=== PATIENT | male | born 1940 | race Caucasian/White ===

== ENCOUNTER → 2025-07-07 10:58 | Outpatient (REF) | payer OTHER, SELFPAY | LOC: HWRAD 10:58 | PROVIDERS: ATTENDING PHYSICIAN Internal Medicine Critical Care Medicine; FAMILY PHYSICIAN Family Medicine | DX: J44.9 Chronic obstructive pulmonary disease, unspecified (principal) | CPT/HCPCS: 71250 ==

== ENCOUNTER → 2025-10-21 13:40 | Outpatient (REF) | payer OTHER, SELFPAY | LOC: HWRAD 13:40 | PROVIDERS: ATTENDING PHYSICIAN Internal Medicine Critical Care Medicine; FAMILY PHYSICIAN Family Medicine | DX: R91.8 Other nonspecific abnormal finding of lung field (principal) | CPT/HCPCS: 71250 ==

== ENCOUNTER 2025-11-02 14:45 | Inpatient (IN) | payer OTHER, SELFPAY ==
[2025-11-02] VITALS (10 sets, daily range): BP systolic 108–163; BP diastolic 60–78; PULSE 2–106; BMI 34.3
--- NOTE | 2025-11-02 12:41 | ED.GENMED ---
History of Present Illness
General
Chief Complaint: Breathing Problem
Time Seen by Provider: 11/02/25 12:32
Nursing documentation reviewed up to this point in time: agreed with
History of Present Illness
History of Present Illness:
85-year-old male brought to the ER by family for evaluation of severe shortness of breath. Patient has COPD and is on every 4 hour nebulizer treatments. He also uses BiPAP at nighttime. He states that he had been feeling relatively well although
maybe a little bit more short of breath last night. He reports feeling severely short of breath this morning, unrelieved by nebulizer treatment given at home. He is on 4 L nasal cannula oxygen chronically. He has been compliant with taking his
Lasix daily. He is also on azithromycin daily. In addition to COPD he has prior history of back surgery, he has an indwelling morphine pump
brings with her a 2 page list of his medications which I have reviewed with her. Medication list includes aspirin, azithromycin, ferrous sulfate, fluorometholone acetate, furosemide, ipratropium, Movantik here, omeprazole, pregabalin, timolol
drops, levetiracetam, Toprol, budesonide inhaled, escitalopram, finasteride, lovastatin, pregabalin, Keppra, tamsulosin, metoprolol, morphine tablets and pump and also Dupixent
Review of Systems
Review of Systems
Allergies reviewed?: Yes
Phy Exam
Physical Exam
Physical Exam:
Patient is awake, alert, tachypneic, mild facial flushing with severe respiratory distress, using all accessory muscles for respiration, head is NCAT, PERRL, EOMI mucous membranes moist, conjunctiva pink, heart regular rate and rhythm without
murmurs or ectopy, absent breath sounds in all 4 lung morales,, no JVD, abdomen is soft and nontender on palpation, extremities without edema, well-healed midline surgical incision over cervical and thoracic spine with significant thoracic kyphosis,
GCS is 15
Scores
Heart Failure Risk
Heart Failure Risk Score: Not Applicable
Course
Orders/Labs/Results
Orders:
Orders
11/02/25 12:27
Electrocardiogram (*1) Urgent
Reason for Study: Shortness of Breath
EKG- Treatment ONCE
11/02/25 12:37
Albuterol Nebs [Ventolin Nebules] 10 mg INH R NOW STA
Bipap [RESP] Urgent
Patient to use own unit?: No
Inspiratory Pressure (cm H2O): 15
Expiratory Pressure (cm H2O): 5
11/02/25 12:39
Ipratropium Nebs [Atrovent Nebules] 1 mg INH R NOW STA
MethylPREDNISolone PF [Solu-Medrol Pf] 125 mg IV NOW STA
11/02/25 12:40
CR Chest Portable - 1 View Urgent
Comment:
Reason For Exam: dyspnea
Reason Study Needs to be Portable: Patient Unstable
11/02/25 12:42
Complete Blood Count/With Diff Urgent
Comprehensive Metabolic Panel Urgent
NT-proBNP Urgent
PTT Urgent
Prothrombin Time Urgent
Troponin I Urgent
11/02/25 12:46
COVID-19 Antigen Urgent
Source: Nasal Swab
Influenza A+B Rapid Molecular Urgent
GILMA Source: Nasal Swab
Specimen Description:
11/02/25 12:50
Morphine Sulfate 4 mg IV NOW STA
11/02/25 12:52
Magnesium Sulfate 2 Gram/50 ml [Magnesium Sulfate] 2 gram in 50 ml IV NOW
Morphine Sulfate 4 mg .ROUTE .STK-MED ONE
11/02/25 13:32
Cefepime HCl [Maxipime] 1,000 mg IV NOW STA
11/02/25 13:43
Lactic Acid Urgent
Blood Culture Urgent
GILMA Source: Blood/Venous
Specimen Description:
11/02/25 13:44
Sterile Water [Sterile Water For Injection] 10 ml .ROUTE .STK-MED ONE
11/02/25 13:49
Blood Culture Urgent
GILMA Source: Blood/Venous
Specimen Description:
Vancomycin [Vancocin] 2,000 mg 0.9% Sodium Chloride 500 ml [Nss] 500 ml IV NOW
11/02/25 14:23
Admit/Transfer Patient As Directed
Co-Sign Provider:
Level of Care: Inpatient admission
Assign to:: IMU- Intermediate Care
Physician / Group: María Vieira - Hospitalists
Diagnosis: Acute on chronic hypoxic RF, pneumonia
Reason for Hospitalization: Acute on chronic hypoxic RF, pneumonia - IMU, BiPAP, IV Abx
Expected length of stay greater than two midnights?: Yes
ELOS- Estimated Length of Stay in days: 4
I certify the patient meets the requirements for IP care: Yes
PRN Pain Medication Management As Directed
May give lesser potent ordered pain med per pt: Yes
preference::
Protocol:: Medication orders for pain may be administered in a
manner that supports deferring to patient preference
when the pt is:
- Requesting an ordered lesser potent pain medication.
Least to most potent pain medications are defined
as: acetaminophen < NSAID < tramadol < opioids
(morphine, oxycodone, hydromorphone).
- Requesting a lesser dose of the same medication IF
ORDERED.
- Requesting a less intrusive route of administration
if both routes are prescribed by the provider (PO <
IV).
11/02/25 14:27
Code Status As Directed
Resuscitation Status: Do not resuscitate
Reached after discussion with pt or family/Healthcare POA: Yes
DNR Bracelet Application ONCE
11/02/25 14:34
PULMONARY CONSULT Routine
Consulting Provider: Stefani Jang
Was physician already notified: Yes
Abnormal Lab Results
11/02/25
12:42
WBC 13.0 H 10^3/uL
(4.8-10.8)
RBC 4.13 L 10^6/uL
(4.70-6.10)
Hgb 12.4 L g/dL
(13.0-18.0)
MCV 97.3 H fL
(80.0-94.0)
MCHC 30.8 L g/dL
(33.0-37.0)
MPV 10.9 H fL
(7.4-10.4)
Abs Immat Gran (auto) 0.1 H 10^3/uL
(0-0.05)
Absolute Neuts (auto) 9.7 H 10^3/uL
(1.4-6.5)
Absolute Monos (auto) 1.5 H 10^3/uL
(0.1-0.6)
Immature Gran % 0.8 H %
(0-0.5)
Lymphocytes % 11.7 L %
(20.5-51.1)
Monocytes % 11.6 H %
(1.7-9.3)
Chloride 96 L mmol/L
(98-107)
Carbon Dioxide 38 H mmol/L
(22-30)
BUN 25 H mg/dl
(9-20)
Glucose 111 H mg/dl
(70-99)
AST 136 H U/L
(17-59)
11/02/25 12:42
11/02/25 12:42
White blood count elevated at 13. Mild anemia noted. CO2 elevated at 38
Vital Signs
Initial and Last Documented VS:
Initial Vital Signs
Temp Pulse Resp BP Pulse Ox
99.1 F 101 22 163/78 94
11/02/25 12:14 11/02/25 12:14 11/02/25 12:14 11/02/25 12:14 11/02/25 12:14
Last Documented Vital Signs
Temp Pulse Resp BP Pulse Ox
99.1 F 103 18 128/68 93
11/02/25 12:14 11/02/25 14:00 11/02/25 14:01 11/02/25 14:00 11/02/25 14:00
MDM/Problems Addressed
Differential Diagnosis Includes:
Differential diagnosis to consider but not limited to COPD exacerbation, pneumonia, acute hypoxic respiratory failure, acute hypercapnic respiratory failure along with other etiologies considered
Chronic conditions affecting care:
COPD with home use of 4 L nasal cannula oxygen, chronic pain on morphine pump
*Radiology
Radiology exam reviewed: preliminary read by ED provider (I independently viewed and interpreted x-ray showing large right pneumonia with air bronchogram present)
*Pulse Oximetry
SaO2: 92
Nasal Cannula flow liters per minute: 6
Patient hypoxic: yes
*EKG
Interpreted by ED Provider?: Yes (I independently viewed and interpreted twelve-lead EKG showing sinus tachycardia, rate 111, leftward axis, anterior Q waves, no ST elevation, this is an abnormal tracing without evidence for acute ischemia, no prior
for comparison)
*Business Quality Assurance Analyst Interpretation
Rate: tachycardiac (I independently viewed and interpreted rhythm strip showing sinus tachycardia, no ectopy)
*Critical Care Note
Total Time (30-74mins, 75-104mins- exclusive of procedures): see notes
comment:
Critical care statement: A total of 45 minutes of critical care time was provided for this patient. This includes management of unstable vital signs, evaluation of the patient at bedside, reviewing the patient's pertinent medical records, discussion
with consultants, review of old EKGs and review of pertinent medical records. This time with separate from time utilized to perform the aforementioned documented procedures
Update Note
Update Note:
Patient ordered for BiPAP immediately on my initial evaluation. We are having some difficulty getting him to tolerate with heart rates up into the 150s. Patient appears severely anxious, understandably. He is on chronic morphine, small dose of
morphine was given for additional anxiolysis in order to tolerate the treatment. Nebulizer is currently working with BiPAP-on reexamination I am now able to hear breath sounds BL. Pt still tachypneic. IV magnesium also ordered for bronchospasm.
Will continue frequent reassessments.
Patient seem to be doing better with breathing, however now on reevaluation, he appears very fatigued. He is still answering questions and tolerating the BiPAP, but is becoming more somnolent. I discussed with patient and feel members present at
bedside current critical condition. I discussed with him presence of right lower lobe pneumonia. We discussed patient's advance directive-he has DNR, DNI. They would agree to continue BiPAP and start antibiotics. Patient also going in and out of
atrial tachycardia, likely a flutter with 2 1 conduction, he has no prior history of this. I reviewed full pt presentation and current condition with the hospitalist, who accepts pt for admission
ED Attending Note
-
Portions of this chart may have been created with voice recognition software.� Occasional wrong word or��sound alike� substitutions may have occurred due to the inherent limitations of voice recognition software.
Discharge Plan
Departure
Patient Disposition: Admit
Date of Disposition: 11/02/25
Time of Disposition: 13:45
Presentation/result/management discussed w/ accepting MD/DO: Hospitalist
Discharge Problem:
Acute hypoxemic respiratory failure, Pneumonia, Acute exacerbation of chronic obstructive pulmonary disease, Atrial fibrillation/flutter
Prescriptions:
No Action
furosemide [Lasix] 20 mg Tablet
20 mg PO DAILY
doxycycline hyclate 100 mg Capsule
100 mg PO BID
ipratropium-albuterol [DuoNeb] 0.5 mg-3 mg(2.5 mg base)/3 mL Solution For Nebulization
3 ml INHALATION R QID
azithromycin 250 mg Tablet
250 mg PO MOTUWETHFR
benzonatate 200 mg Capsule
200 mg PO TIDPRN PRN (Reason: COUGH)
levetiracetam [Keppra] 500 mg Tablet
500 mg PO DAILY
lovastatin 40 mg Tablet
40 mg PO QPM
lysine [L-Lysine] 1,000 mg Tablet
1,000 mg PO DAILY
Theragen Tablet
1 tab PO DAILY
omeprazole 40 mg Capsule,Delayed Release(Dr/Ec)
40 mg PO DAILY
aspirin 81 mg Tablet,Delayed Release (Dr/Ec)
81 mg PO DAILY
tamsulosin [Flomax] 0.4 mg Capsule
0.4 mg PO QPM
fluorometholone acetate 0.1 % Drops,Suspension
1 drp LEFT EYE BID
ferrous sulfate 325 mg (65 mg iron) Tablet
325 mg PO DAILY
budesonide 0.5 mg/2 mL Suspension For Nebulization
0.5 mg INHALATION R BID
levetiracetam [Keppra] 750 mg Tablet
750 mg PO QPM
timolol maleate 0.5 % Drops
1 drp LEFT EYE BID
morphine 15 mg Tablet
15 mg PO QID
finasteride 5 mg Tablet
5 mg PO QPM
ipratropium bromide 0.02 % Solution
0.5 mg INHALATION R BID
amoxicillin-pot clavulanate [Augmentin] 875-125 mg Tablet
1 tab PO BID
escitalopram oxalate [Lexapro] 10 mg Tablet
10 mg PO QPM
metoprolol tartrate 25 mg Tablet
25 mg PO BID
pregabalin [Lyrica] 50 mg Capsule
50 mg PO DAILY
pregabalin [Lyrica] 50 mg Capsule
100 mg PO HS
cholecalciferol (vitamin D3) [Vitamin D3] 25 mcg (1,000 unit) Tablet
25 mcg PO DAILY
Gndjbgijkpu-Qwihd-OZA Complex 237-142-92-0.5 mg Tablet
1 tab PO DAILY
Calcium Magnesium 500 mg calcium- 250 mg Tablet
1 tab PO DAILY
Movantik 25 mg Tablet
25 mg PO DAILY
Dupixent Pen 300 mg/2 mL Pen Injector
600 mg SC Q2W
Patient Own Morphine Pump
1 dose SC DIRECTED
Patient Comments:
11/02/25-PATIENT, SPOUSE AND FAMILY IN ROOM DO NOT KNOW INFORMATION ABOUT THE PUMP
Referrals:
Cain Justin DO [Family Provider, Family Practice]
Interventions
Interventions:
*Risk Screen - Suicide Last Done: 11/02/25 12:14
*General Assessment Last Done: 11/02/25 12:14
*Neglect/Abuse Screening Last Done: 11/02/25 12:14
*ED COVID-19 Vaccine History Last Done: 11/02/25 12:38
*ED Influenza Vaccine History Last Done: 11/02/25 12:38
[facility] Fall Risk Assessment Tool Last Done: 11/02/25 12:38
ED- Cardiac Assessment Last Done: 11/02/25 12:38
ED- Pulmonary Assessment Last Done: 11/02/25 12:38
Discharge Date and Time
Print Language: GREENLANDIC
[2025-11-02] MEDS: SOLU-MEDROL PF 125 MG IV (12:47)
[2025-11-02 12:55] LABS: Hematocrit 40.2 % (39.0-52.0); Hemoglobin 12.4 g/dL (13.0-18.0); Mean Corp Hgb Conc. 30.8 g/dL (33.0-37.0); Mean Corpuscular Volume 97.3 fL (80.0-94.0); Nucleated Red Blood Cells % 0 % (-); Platelet Count 190 10^3/uL (130-400); Red Cell Dist. Width 13.5 % (11.5-14.5)
[2025-11-02] MEDS: MORPHINE SULFATE 4 MG IV (12:55)
[2025-11-02] MEDS: MAGNESIUM SULFATE 50 IV (12:59)
[2025-11-02 13:05] LABS: INR 0.96; PT 12.9 Sec (11.4-14.6)
[2025-11-02 13:06] LABS: APTT 29.2 Sec (23.4-35.0)
[2025-11-02 13:10] LABS: ALT (SGPT) 42 U/L (0-50); AST (SGOT) 136 U/L (17-59); Albumin 3.8 g/dl (3.5-5.0); Alkaline Phosphatase 100 U/L (38-126); Blood Urea Nitrogen 25 mg/dl (9-20); Calcium 8.8 mg/dl (8.4-10.2); Carbon Dioxide 38 mmol/L (22-30); Chloride 96 mmol/L (98-107); Glucose 111 mg/dl (70-99); Potassium 4.1 mmol/L (3.5-5.1); Sodium 139 mmol/L (135-145); Total Protein 6.9 g/dl (6.3-8.2); eGFR > 60.00
[2025-11-02 13:16] LABS: COVID-19 Antigen Negative (Negative)
[2025-11-02] MEDS: ATROVENT NEBULES 1 MG INH (13:20)
[2025-11-02] MEDS: VENTOLIN NEBULES 10 MG INH (13:20)
[2025-11-02 13:21] LABS: Troponin I 0.020 ng/ml
[2025-11-02] MEDS: MAXIPIME 1000 MG IV (13:46)
[2025-11-02] MEDS: VANCOCIN 540 MG IV (13:58)
--- NOTE | 2025-11-02 14:09 | HPS.HSE ---
Addendum entered and electronically signed by María Vieira MD 11/02/25 16:49:
add IV steroids
Original Note:
Family Physician
-
Family Physician: Cain Justin
Chief Complaint
-
SOB
History of Present Illness
85 y/o F, hx of seizures, COPD on chronic home O2, HUGO on nocturnal BIPAP, RLS, Anxiety/Depression, HLD, hx of multiple back surgeries, restrictive lung disease, BPH presenting to ER with worsening SOB. Patient uses 4L NC chronically. He saw
Pulmonary in early September and had a CT prior to showing loculated R pleural effusion and RLL opacities. He was placed on Augmentin and Doxycycline by Pulmonary. Over past 24 hours patient has reported increasing SOB from baseline
along with some cough. He usually takes nebs every 4 hours but found no relief with neb treatments. Denies CP. No reported fever/chills. No other complaints. Reports compliance with diuretics. Has restrictive lung disease from prior multiple back
surgeries with body height loss; he is also maintained on morphine pump.
Medical History
Past Medical History
Past Medical History: Reports Other (seizures, COPD on chronic home O2, HUGO on nocturnal BIPAP, RLS, Anxiety/Depression, HLD, hx of multiple back surgeries, restrictive lung disease, BPH)
Past Surgical History: Reports Other (Spinal surgeries, cath, colonoscopy, cataracts)
Social History
Tobacco: Former Smoker
Alcohol: None
Drug: None
Personal:
Living: With Family
Employment: Retired
Family History
Family History: Not pertinent
Allergies / Home Medications
Allergies reflects when Allergies were last updated in [facility].
Home Medications with original date entered in [employer]
Allergy/Medication List:
Allergies
Allergy/AdvReac Type Severity Reaction Status Date / Time
acetaminophen (From Percocet) AdvReac Nausea / Verified 11/02/25 12:14
Vomiting
oxycodone (From Percocet) AdvReac Nausea / Verified 11/02/25 12:14
Vomiting
propoxyphene (From AdvReac Nausea / Verified 11/02/25 12:14
Darvocet-N) Vomiting
Home Medications
Patient Own Morphine Pump 1 dose SC DIRECTED 11/02/25
amoxicillin 875 mg-potassium clavulanate 125 mg tablet 1 tab PO BID Infection 11/02/25
aspirin 81 mg tablet,delayed release 81 mg PO DAILY Blood Clot Prevention/Tx 11/02/25
azithromycin 250 mg tablet 250 mg PO MOTUWETHFR 11/02/25
benzonatate 200 mg capsule 200 mg PO TIDPRN PRN COUGH 11/02/25
budesonide 0.5 mg/2 mL suspension for nebulization 0.5 mg inhalation R BID Lung/Breathing Issues 11/02/25
calcium 500 mg (carb,gluconate)-magnesium 250 mg (gluc,oxide) tablet 1 tab PO DAILY Supplement 11/02/25
cholecalciferol (vitamin D3) 25 mcg (1,000 unit) tablet (Vitamin D3) 25 mcg PO DAILY Supplement 11/02/25
doxycycline hyclate 100 mg capsule 100 mg PO BID Infection 11/02/25
dupilumab 300 mg/2 mL subcutaneous pen injector (Dupixent) 600 mg SC Q2W 11/02/25
escitalopram oxalate 10 mg tablet (Lexapro) 10 mg PO QPM Mental Health/Anxiety 11/02/25
ferrous sulfate 325 mg (65 mg iron) tablet 325 mg PO DAILY Supplement 11/02/25
finasteride 5 mg tablet 5 mg PO QPM Urinary Issue 11/02/25
fluorometholone acetate 0.1 % eye drops,suspension 1 drp LEFT EYE BID Eye Condition 11/02/25
furosemide 20 mg tablet (Lasix) 20 mg PO DAILY Fluid Retention/Swelling 11/02/25
glucosamine 375 io-wupgbetjv-eed no1 500 mg-C 15 mg-elisa 0.5 mg tablet (Vsbwcjhqjrm-Pyultpxzszj-PJA Complex) 1 tab PO DAILY Supplement 11/02/25
ipratropium 0.5 mg-albuterol 3 mg (2.5 mg base)/3 mL nebulization soln 3 ml inhalation R QID Lung/Breathing Issues 11/02/25
ipratropium bromide 0.02 % solution for inhalation 0.5 mg inhalation R BID Lung/Breathing Issues 11/02/25
levetiracetam 500 mg tablet (Keppra) 500 mg PO DAILY Seizures 11/02/25
levetiracetam 750 mg tablet (Keppra) 750 mg PO QPM Seizures 11/02/25
lovastatin 40 mg tablet 40 mg PO QPM High Cholesterol 11/02/25
lysine 1,000 mg tablet 1,000 mg PO DAILY Supplement 11/02/25
metoprolol tartrate 25 mg tablet 25 mg PO BID Heart Disease/Condition 11/02/25
morphine 15 mg immediate release tablet 15 mg PO QID Anti-Inflammatory 11/02/25
naloxegol 25 mg tablet (Movantik) 25 mg PO DAILY 11/02/25
omeprazole 40 mg capsule,delayed release 40 mg PO DAILY Gastrointestinal Issue 11/02/25
pregabalin 50 mg capsule (Lyrica) 50 mg PO DAILY Anti-Inflammatory 11/02/25
pregabalin 50 mg capsule (Lyrica) 100 mg PO HS Anti-Inflammatory 11/02/25
tamsulosin 0.4 mg capsule 0.4 mg PO QPM Urinary Issue 11/02/25
therapeutic multivitamin 1 tab PO DAILY Supplement 11/02/25
timolol maleate 0.5 % eye drops 1 drp LEFT EYE BID Eye Condition 11/02/25
Review of Systems
-
A 12 point ROS was completed and negative except as noted: Yes
Physical Exam
Vital Signs
Vital Signs
Temp Pulse Resp BP Pulse Ox
99.1 F 103 18 128/68 93
11/02/25 12:14 11/02/25 14:00 11/02/25 14:01 11/02/25 14:00 11/02/25 14:00
Physical Exam
General: Respiratory Distress (on BIPAP - is alert and able to follow conversation)
HEENT: NormoCephalic and Anicteric
Respiratory: Rhonchi (RLL) and Decreased Breath Sounds (RLL); No Wheezes
Cardiac: S1/S2 and Regular Rhythm
GI: Soft and Non Tender
Musculoskeletal: No Edema
Neuro: AO x 3
Psych: Calm
Laboratory Results
-
11/02/25 12:42
11/02/25 12:42
Laboratory Results
PT 12.9 Sec (11.4-14.6) 11/02/25 12:42
INR 0.96 11/02/25 12:42
APTT 29.2 Sec (23.4-35.0) 11/02/25 12:42
Lactic Acid 1.1 mmol/L (0.7-2.0) 11/02/25 13:43
Total Bilirubin 0.3 mg/dl (0.2-1.3) 11/02/25 12:42
AST 136 U/L (17-59) H 11/02/25 12:42
ALT 42 U/L (0-50) 11/02/25 12:42
Alkaline Phosphatase 100 U/L (38-126) 11/02/25 12:42
Troponin I 0.020 ng/ml 11/02/25 12:42
Data Reviewed
-
Diagnostic Radiology: Report Reviewed by me (Large partially loculated right pleural effusion with associated atelectasis and/or pneumonia)
Lab Data: Labs Reviewed by me
Impression/Plan
-
Assessment:
Acute on chronic hypoxic respiratory failure
Acute RLL pneumonia
Hx of COPD
Hx of Severe restrictive lung disease
- baseline 4L NC, currently requiring continuous BiPAP for respiratory distress; wean as able
- recently placed on Augmentin + Doxy without improvement
- admit to IMU
- check sputum, MRSA
- Vancomycin and Zosyn empirically
- nebs scheduled and prn
- mucolytics, anti-tussives
- 3% saline
- RLL consolidation could also be related to plugging, unsure if candidate for bronch
- consult Pulmonary
Hx of seizures
- continue Keppra BID
HUGO on Nocturnal BIPAP
RLS
Anxiety/Depression hx
- continue Lexapro
HLD - statin
hx of multiple back surgeries
hx of Demyelinating neuropathy
- continue morphine QID + add prn dosages. Hold pump.
- on Movantik
- continue Lyrica
BPH
- continue Finasteride, Flomax
Hx venous insufficiency
- continue oral Lasix
Hx of CAD
- aspirin/BB/Statin
DVT ppx: Lovenox
Code: DNR/DNI - confirmed with family
--- NOTE | 2025-11-02 14:52 | CM ---
Chart reviewed and spoke with patient, Larisa and dtr Ailyn at ED bedside. Ailyn's at ED bedside
Pt lives with at [address] apartment
Needs assistance with ADLs and ambulation
DME BIPAP home O2 4 LPM at baseline walker
PCP Dr Cain Justin
Pharmacy [facility]
SNF [facility] x2 and one on [phone]?
DCP is to go home with HHC vs SNF?
CM will continued to follow up for any dcp needs
--- NOTE | 2025-11-02 15:05 | CON.PUL ---
Consultation
Consultation Request
Date/Time Consultation Requested: 11/02/25
Date/Time Consultation Performed: 11/02/25
Performing Provider: Laine
Reason for Consultation: Hypoxia,WOB
Medical History
-
History of Present Illness:
Patient is an 85-year-old male with previous history of chronic hypoxic respiratory failure, severe HUGO on BiPAP, COPD with severe restrictive lung defect presenting with worsening shortness of breath from home. Patient is noted to use 4 L nasal
cannula chronically at home. He was noted by his to have worsening shortness of breath. She had tried BiPAP temporarily before coming to the ER which was not helpful. He has prior CT imaging demonstrating loculated right pleural effusion.
He is also maintained on a morphine pump. He is notably DNR, confirmed by patient and family that they would not want aggressive measures. He is admitted to IMU for acute on chronic hypoxic respiratory failure.
Past Medical History
Past Medical History: Other (see list below)
Social History
Tobacco: Former Smoker
Alcohol: None
Drug: None
Family History
Family History: Reviewed & Not Pertinent
Allergies / Home Medications
Allergies
Allergy/AdvReac Type Severity Reaction Status Date / Time
acetaminophen (From Percocet) AdvReac Nausea / Verified 11/02/25 12:14
Vomiting
oxycodone (From Percocet) AdvReac Nausea / Verified 11/02/25 12:14
Vomiting
propoxyphene (From AdvReac Nausea / Verified 11/02/25 12:14
Darvocet-N) Vomiting
Home Medications
�Medication �Instructions �Recorded �Confirmed �Last Taken �Type
Patient Own Morphine Pump 1 dose SC DIRECTED 11/02/25 11/02/25 Unknown History
amoxicillin 875 mg-potassium 1 tab PO BID Infection 11/02/25 11/02/25 11/01/25 History
clavulanate 125 mg tablet
aspirin 81 mg tablet,delayed 81 mg PO DAILY Blood Clot 11/02/25 11/02/25 11/01/25 History
release Prevention/Tx
azithromycin 250 mg tablet 250 mg PO MOTUWETHFR 11/02/25 11/02/25 10/31/25 History
benzonatate 200 mg capsule 200 mg PO TIDPRN PRN COUGH 11/02/25 11/02/25 Unknown History
budesonide 0.5 mg/2 mL suspension 0.5 mg inhalation R BID 11/02/25 11/02/25 11/01/25 History
for nebulization Lung/Breathing Issues
calcium 500 mg 1 tab PO DAILY Supplement 11/02/25 11/02/25 11/01/25 History
(carb,gluconate)-magnesium 250 mg
(gluc,oxide) tablet
cholecalciferol (vitamin D3) 25 25 mcg PO DAILY Supplement 11/02/25 11/02/25 11/01/25 History
mcg (1,000 unit) tablet (Vitamin
D3)
doxycycline hyclate 100 mg capsule 100 mg PO BID Infection 11/02/25 11/02/25 11/01/25 History
dupilumab 300 mg/2 mL subcutaneous 600 mg SC Q2W 11/02/25 11/02/25 Unknown History
pen injector (Dupixent)
escitalopram oxalate 10 mg tablet 10 mg PO QPM Mental Health/Anxiety 11/02/25 11/02/25 11/01/25 History
(Lexapro)
ferrous sulfate 325 mg (65 mg 325 mg PO DAILY Supplement 11/02/25 11/02/25 11/01/25 History
iron) tablet
finasteride 5 mg tablet 5 mg PO QPM Urinary Issue 11/02/25 11/02/25 11/01/25 History
fluorometholone acetate 0.1 % eye 1 drp LEFT EYE BID Eye Condition 11/02/25 11/02/25 11/01/25 History
drops,suspension
furosemide 20 mg tablet (Lasix) 20 mg PO DAILY Fluid 11/02/25 11/02/25 11/01/25 History
Retention/Swelling
glucosamine 375 vm-zwmimjouz-vmd 1 tab PO DAILY Supplement 11/02/25 11/02/25 11/01/25 History
no1 500 mg-C 15 mg-elisa 0.5 mg
tablet
(Vcmtyxgpjni-Xioptpzfcxy-VCD
Complex)
ipratropium 0.5 mg-albuterol 3 mg 3 ml inhalation R QID 11/02/25 11/02/25 11/01/25 History
(2.5 mg base)/3 mL nebulization Lung/Breathing Issues
soln
ipratropium bromide 0.02 % 0.5 mg inhalation R BID 11/02/25 11/02/25 11/01/25 History
solution for inhalation Lung/Breathing Issues
levetiracetam 500 mg tablet 500 mg PO DAILY Seizures 11/02/25 11/02/25 11/02/25 History
(Keppra)
levetiracetam 750 mg tablet 750 mg PO QPM Seizures 11/02/25 11/02/25 11/01/25 History
(Keppra)
lovastatin 40 mg tablet 40 mg PO QPM High Cholesterol 11/02/25 11/02/25 11/01/25 History
lysine 1,000 mg tablet 1,000 mg PO DAILY Supplement 11/02/25 11/02/25 11/01/25 History
metoprolol tartrate 25 mg tablet 25 mg PO BID Heart 11/02/25 11/02/25 11/01/25 History
Disease/Condition
morphine 15 mg immediate release 15 mg PO QID Anti-Inflammatory 11/02/25 11/02/25 11/01/25 History
tablet
naloxegol 25 mg tablet (Movantik) 25 mg PO DAILY 11/02/25 11/02/25 11/01/25 History
omeprazole 40 mg capsule,delayed 40 mg PO DAILY Gastrointestinal 11/02/25 11/02/25 11/01/25 History
release Issue
pregabalin 50 mg capsule (Lyrica) 50 mg PO DAILY Anti-Inflammatory 11/02/25 11/02/25 11/01/25 History
pregabalin 50 mg capsule (Lyrica) 100 mg PO HS Anti-Inflammatory 11/02/25 11/02/25 11/01/25 History
tamsulosin 0.4 mg capsule 0.4 mg PO QPM Urinary Issue 11/02/25 11/02/25 11/01/25 History
therapeutic multivitamin 1 tab PO DAILY Supplement 11/02/25 11/02/25 11/01/25 History
timolol maleate 0.5 % eye drops 1 drp LEFT EYE BID Eye Condition 11/02/25 11/02/25 11/01/25 History
Review of Systems
-
History Source: Patient and Family
All other systems: Negative unless noted
Vitals / Labs / Diagnostic Testing
Vital Signs
Temp Pulse Resp BP Pulse Ox
99.1 F 103 18 128/68 93
11/02/25 12:14 11/02/25 14:00 11/02/25 14:01 11/02/25 14:00 11/02/25 14:00
Lab Data
11/02/25 12:42
11/02/25 12:42
Laboratory Results
11/02/25
12:42
PT 12.9
INR 0.96
APTT 29.2
Microbiology
11/02/25 12:46 Nasal Swab Influenza Types A & B ([facility]) - Final
Negative for Influenza A & B, NAAT
Negative results must be combined with clinical observations
and patient history.
Nucleic Acid Amplification test (NAAT)performed on the
[employer] NOW platform.
Diagnostic Testing:
Physical Exam
-
HEENT: Normocephalic and Anicteric
Cardiovascular: S1/S2 and Regular Rhythm
Respiratory: Wheeze, Accessory Resp Muscle Use (moderate on BIPAP) and Other (paradoxical breathing)
GI: Soft, Distended (obese, pain pump noted) and Non Tender
Neurology: Awake, Alert and No Motor Deficits
Skin: Warm and Dry
General: Other (chronically ill appearing, moderate distress but mentating)
Assessment
-
Patient is an 85-year-old male with previous history of chronic hypoxic respiratory failure, severe HUGO on BiPAP, COPD with severe restrictive lung defect presenting with worsening shortness of breath from home. Patient is noted to use 4 L nasal
cannula chronically at home. He was noted by his to have worsening shortness of breath. She had tried BiPAP temporarily before coming to the ER which was not helpful. He has prior CT imaging demonstrating loculated right pleural effusion.
He is also maintained on a morphine pump. He is notably DNR, confirmed by patient and family that they would not want aggressive measures. He is admitted to IMU for acute on chronic hypoxic respiratory failure. We are consulted for evaluation.
Acute on chronic hypoxic respiratory failure
Leukocytosis, mild
Right sided loculated pleural effusion, chronic
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
Conditions present prior to admission
Severe COPD, follows with AF
6MWT performed 10/03/25 showing he needs 4L/min with rest and activity
Full PFTs from 05/02/2025 showed a severe restrictive lung defect
Severe HUGO, RDI of 98 in January 2008, and wears auto-BiPAP 19/35huK1C with PS: 2-7cmH2O, bled with 4L/min
Previously managed at [facility], transitioned care to in the past year
Former tobacco smoker, quit in [phone], smoked 0.5PPD x 20 years
RLD
Restless leg syndrome
Back injury x 8 surgeries, now on morphine pain pump/implanted 03/22/2004
several back surgeries including fusion of C5 + C6 and C6+C7, L3 +S1, L4+L5 [id number]
High cholesterol
Polyneuropathy
Hypertension
Seizures
Ulcers/Gastritis
Hx Fall
Depression/Anxiety
Heart catheterization 01/17/2008, 04/24/14
Plan
Hypoxemia noted on arrival, O2 wendy 88% on 4 L
He has baseline O2 use of 4 L nasal cannula, he is now on BiPAP
Will obtain ABG, likely a CO2 retainer
Prior history of lung disease is noted including COPD, severe restrictive lung disease, former smoker, severe HUGO
Prior PFTs demonstrating severe restrictive lung defect
Agree with IV steroids, suspect patient has AECOPD
He has numerous reasons to feel short of breath
CXR/CT obtained indicating loculated right pleural effusion that has increased in size since previous CT in June
I will follow-up with chest ultrasound to see if this is amenable for thoracentesis with diagnostic testing
He is currently placed on IV antibiotics but unsure if this is related to pneumonia versus congestive heart failure, and has been present since June
proBNP negative but could be heart failure related
No prior echoes for review
We will obtain new study
Smoking history noted--former history
Weight loss measures recommended
Obesity likely contributing to respiratory symptoms
Patient has numerous serious comorbidities and is on a morphine pump for back pain
This is certainly contraindicated in a patient with severe obstructive sleep apnea
He is currently DNR, I have verified the status with patient and his family
If he does not clinically improve, they are all in agreement that he would want to be made comfortable
We will follow
Diagnostic Data
Chest X- Ray:11/02/25- Large partially loculated right pleural effusion with associated atelectasis and/or pneumonia, likely similar to prior CT.
CT Scan: CHEST 10/21/25- There is an increased moderate, loculated right-sided pleural effusion with adjacent opacities within the posterior lateral right lung which may represent atelectasis although pneumonia is possible.
There is opacification of the proximal right lower lobe bronchus which may represent mucous plugging although a mass is possible. Consider bronchoscopy for further evaluation.
There is a mildly displaced sternal body fracture. Additionally there is a compression deformity of the T8 vertebral body. These are new from imported CT in 2023 although similar appearance to recent prior CT.
07/07/25- Overall low lung volumes with some interstitial changes, many of which may be chronic. Irregular lobulated ill-defined 'consolidation' in the lower lobe of the right lung which although could represent atelectasis and/or pneumonia,
malignancy cannot be excluded. Are there prior outside studies for comparison? If not, consider PET scan with dual point imaging.
Echo:
PFT's:
Reports and relevant images were personally reviewed.
Total time spent on this consultation __55__ minutes which includes review of history, physical exam, medications, laboratory data, personal review of imaging, extensive review of outpatient records, discussion with care team and respiratory therapy.
--- NOTE | 2025-11-02 16:23 | EDRN ---
per the pts , the pt has an internal morphine pump in his abdomen that is completely internal, it gets filled every 2 months, and is managed by his pain management doctor, and there is no external controller for this morphine pump.
[2025-11-02 16:48] LABS: B.E. 9.9 mmol/L; HCO3 39.2 mmol/L (21-28); O2 Saturation % 97.1 % (94-98); PO2 76 mmHg (83-108)
[2025-11-02 16:49] LABS: PCO2 76 mmHg (35-48)
[2025-11-02] MEDS: MORPHINE SULFATE PO ×2 (18:09→22:33)
--- NOTE | 2025-11-02 18:36 | PTCARENOTE ---
Patient admitted to IMU with diagnosis of PNA, hypoxia. Patient arrived to the unit on Bipap /, 4 liters. Patient drowsy but answering questions appropriately with at bedside. Morphine pump in abdomen as per patient, notified pharmacy.
--- NOTE | 2025-11-02 18:36 | PHA.VAN.IN ---
Assessment
- Assessment
Renal Function: Appears similar to baseline
Concomitant Antimicrobials: Zosyn 3.375 g IV q6h
AUC Dosing Plan
- Empiric Dosing
Initial / Loading Dose: Vancomycin 2 gram IV x 1 dose
Maintenance Regimen: Vancomycin 1.25 gram IV q24H
Estimated AUC (mcg*h/mL): 452
Estimated Peak (mcg*h/mL): 31.3
Estimated Trough (mcg/ml): 10.1
Estimated Half Life (H): 14.1
- Monitoring
No levels ordered at this time: Consider level in a few days when patient at steady state
MRSA Screen: Ordered per protocol
Pharmacokinetics Vancomycin I
- -
Patient Age: 85
Patient Sex: Male
Vancomycin Day #: 1
Indication: Pulmonary/Respiratory
Requesting Provider: Dr. Vieira
Height / Weight:
Height 5 ft 1 in
Actual Weight 82.2 kg
Pertinent Past Medical History: BMI: 34.2
- Vital Signs / Lab Results
Temp Pulse Resp BP Pulse Ox
99.2 F 89 21 139/60 93
11/02/25 17:14 11/02/25 18:30 11/02/25 18:30 11/02/25 18:00 11/02/25 18:30
Lab Results - Hematology
11/02/25
12:42
WBC 13.0 H
Lab Results - Chemistry
11/02/25
12:42
BUN 25 H
Creatinine 0.9
Albumin 3.8
11/02/25
13:43
Lactic Acid 1.1
Microbiology Results
11/02/25 12:46 Influenza Types A & B ([facility]) - Final
Nasal Swab Negative for Influenza A & B, NAAT
Negative results must be combined with clinical observations
and patient history.
Nucleic Acid Amplification test (NAAT)performed on the
[employer] NOW platform.
[2025-11-02] MEDS: LOVENOX 40 MG SC (19:12)
[2025-11-02] MEDS: KEPPRA 750 MG PO (20:02)
[2025-11-02] MEDS: LEXAPRO 10 MG PO (20:02)
[2025-11-02] MEDS: LOPRESSOR 25 MG PO (20:02)
[2025-11-02] MEDS: PROSCAR 5 MG PO (20:05)
[2025-11-02] MEDS: MUCINEX 1200 MG PO (20:05)
[2025-11-02] MEDS: FLOMAX 0.4 MG PO (20:05)
[2025-11-02] MEDS: FML 0.1% OPHTHALMIC SUSPENSION 1 DROP LEFT EYE (20:07)
[2025-11-02] MEDS: TIMOPTIC 0.5% OPHTHALMIC SOLUTION 1 DROP LEFT EYE (20:07)
[2025-11-02] MEDS: LYRICA PO (20:08)
[2025-11-02] MEDS: PULMICORT 0.5 MG INH (20:16)
[2025-11-02] MEDS: DUONEB INH (20:16)
[2025-11-02] MEDS: SODIUM CHLORIDE 3% FOR INHALATION 1 VIAL INH (20:16)
[2025-11-02] MEDS: DUONEB 3 ML INH (20:17)
[2025-11-02] MEDS: ZOSYN 50 IV (20:18)
[2025-11-02] MEDS: LIPITOR PO (20:34)
[2025-11-02] MEDS: LYRICA 100 MG PO (22:36)
[2025-11-03] VITALS (23 sets, daily range): BP systolic 75–157; BP diastolic 57–88; PULSE 2–94; BMI 34.3
[2025-11-03] MEDS: SOLU-MEDROL PF 40 MG IV ×2 (01:49→14:05)
[2025-11-03] MEDS: ZOSYN 50 IV ×4 (01:49→18:23)
[2025-11-03 03:46] LABS: Hematocrit 37.5 % (39.0-52.0); Hemoglobin 11.4 g/dL (13.0-18.0); Mean Corp Hgb Conc. 30.4 g/dL (33.0-37.0); Mean Corpuscular Volume 98.4 fL (80.0-94.0); Platelet Count 186 10^3/uL (130-400); Red Cell Dist. Width 13.5 % (11.5-14.5)
[2025-11-03 04:48] LABS: B.E. 10.7 mmol/L; HCO3 39.5 mmol/L (21-28); O2 Saturation % 98.0 % (94-98); PO2 81 mmHg (83-108)
[2025-11-03 04:55] LABS: PCO2 75 mmHg (35-48)
[2025-11-03 05:02] LABS: Blood Urea Nitrogen 31 mg/dl (9-20); Calcium 8.7 mg/dl (8.4-10.2); Carbon Dioxide 35 mmol/L (22-30); Chloride 100 mmol/L (98-107); Estimated Creatinine Clearance 48 ml/min; Glucose 126 mg/dl (70-99); Potassium 4.8 mmol/L (3.5-5.1); Sodium 139 mmol/L (135-145); eGFR > 60.00
[2025-11-03] MEDS: VANCOCIN 275 MG IV (05:17)
--- NOTE | 2025-11-03 07:31 | W.PN.HOSP.TC ---
Today's Communication/Plan
-
wean off BIPAP as tolerated
cont abx
IR eval Right thoracentesis
Assessment / Plan
Assessment / Plan
Physical Exam
General: no acute distress, appears comfortable though on BIPAP
HEENT: NormoCephalic and Anicteric
Respiratory: Decreased Breath Sounds (RLL); No Wheezes
Cardiac: S1/S2 and Regular Rhythm
GI: Soft and Non Tender
Musculoskeletal: No Edema
Neuro: Alert following commands, limited conversation on BIPAP as above
Psych: Calm
85M sz d/o restrictive lung dz COPD chronic home O2 4L HUGO BIPAP RLS Anxiety/depression here for Acute on Chronic Respiratory Failure likely 2/2 RLL pna and associate large pleural effusion.
Acute on chronic hypoxic respiratory failure
Acute RLL pneumonia
Hx of COPD
Hx of Severe restrictive lung disease
- baseline 4L NC, on BIPAP wean as tolerated
- recently placed on Augmentin + Doxy without improvement
- IMU admit
- check sputum cx, MRSA screen +
- Vancomycin and Zosyn empirically
- nebs scheduled and prn
- mucolytics, anti-tussives
- 3% saline
- chest US appreciated large Right pleural effusion
- consult Pulmonary appreciated IR eval requested for Thoracentesis
Hx of seizures
- continue Keppra BID
HUGO on Nocturnal BIPAP
RLS
Anxiety/Depression hx
- continue Lexapro
HLD - statin
hx of multiple back surgeries
hx of Demyelinating neuropathy
- continue morphine QID + add prn dosages. Hold pump.
- on Movantik
- continue Lyrica
BPH
- continue Finasteride, Flomax
Hx venous insufficiency
- continue oral Lasix
Hx of CAD
- aspirin/BB/Statin
DVT ppx: Lovenox
Code: DNR/DNI
Discussed with patient, patient's Larisa, and patient's daughter Ailyn
I spent a total of 45 minutes with the patient or on the floor. More than 50% of this time involved counseling and coordination of care.
Anticipated Discharge: 24 - 48 hours
Subjective/Interval History
-
Date of Service: November 03, 2025
No acute distress, sitting up comfortably in bed, on bipap, reports feeling sob.
Objective Data
-
Labs:
Laboratory Results
11/03/25 11/03/25
03:35 04:41
WBC 10.9 H
Hgb 11.4 L
Hct 37.5 L
Plt Count 186
HCO3 39.5 H
Sodium 139
Potassium 4.8
Chloride 100
Carbon Dioxide 35 H
BUN 31 H
Creatinine 1.0
Glucose 126 H
Calcium 8.7
Vital Signs:
Vital Signs
Temp Pulse Resp BP Pulse Ox
97.6 F 82 20 134/68 94
11/03/25 03:00 11/03/25 06:45 11/03/25 06:45 11/03/25 06:00 11/03/25 06:45
I&O
11/02/25 11/03/25 11/04/25
06:59 06:59 06:59
Output Total 275 / 275
Balance -25 / -25 -275 / -275
[2025-11-03] MEDS: PULMICORT 0.5 MG INH ×2 (07:33→19:41)
[2025-11-03] MEDS: SODIUM CHLORIDE 3% FOR INHALATION 1 VIAL INH ×2 (07:33→19:41)
[2025-11-03] MEDS: DUONEB 3 ML INH ×4 (07:33→19:41)
[2025-11-03] MEDS: MORPHINE SULFATE 15 MG PO ×4 (07:56→21:54)
[2025-11-03] MEDS: MOVANTIK 25 MG PO (07:56)
[2025-11-03] MEDS: PROTONIX 40 MG PO (07:57)
[2025-11-03] MEDS: LASIX 20 MG PO (07:57)
[2025-11-03] MEDS: LYRICA 50 MG PO (07:57)
[2025-11-03] MEDS: KEPPRA 500 MG PO (07:57)
[2025-11-03] MEDS: ASPIR LOW (ENTERIC COATED) 81 MG PO (07:57)
[2025-11-03] MEDS: LOPRESSOR 25 MG PO ×2 (07:57→20:13)
[2025-11-03] MEDS: MUCINEX 1200 MG PO (07:57)
[2025-11-03] MEDS: TIMOPTIC 0.5% OPHTHALMIC SOLUTION 1 DROP LEFT EYE ×2 (07:58→20:14)
[2025-11-03] MEDS: FML 0.1% OPHTHALMIC SUSPENSION 1 DROP LEFT EYE ×2 (07:58→20:14)
--- NOTE | 2025-11-03 08:24 | RESPNOTE ---
Respiratory: attempted to give patient break from Bilevel on lasted about twenty minutes. Stated SOB returned back to Bilevel.
--- NOTE | 2025-11-03 08:49 | W.PN.PUL.V3 ---
Today's Communication / Plan
-
wean oxygen.
BiPAP.
Right thoracentesis-interventional radiology contacted.
Antibiotics.
Diuresis.
Assessment
-
Patient is an 85-year-old male with previous history of chronic hypoxic respiratory failure, severe HUGO on BiPAP, COPD with severe restrictive lung defect presenting with worsening shortness of breath from home. Patient is noted to use 4 L nasal
cannula chronically at home. He was noted by his to have worsening shortness of breath. She had tried BiPAP temporarily before coming to the ER which was not helpful. He has prior CT imaging demonstrating loculated right pleural effusion.
He is also maintained on a morphine pump. He is notably DNR, confirmed by patient and family that they would not want aggressive measures. He is admitted to IMU for acute on chronic hypoxic respiratory failure. We are consulted for evaluation.
Acute on chronic hypoxic respiratory failure
Leukocytosis, mild
Right sided loculated pleural effusion, chronic
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
Conditions present prior to admission:
Severe COPD, follows with AF
6MWT performed 10/03/25 showing he needs 4L/min with rest and activity
Full PFTs from 05/02/2025 showed a severe restrictive lung defect
Severe HUGO, RDI of 98 in January 2008, and wears auto-BiPAP 19/10rdP8N with PS: 2-7cmH2O, bled with 4L/min
Previously managed at [facility], transitioned care to in the past year
Former tobacco smoker, quit in [id number], smoked 0.5PPD x 20 years
RLD
Restless leg syndrome
Back injury x 8 surgeries, now on morphine pain pump/implanted 03/22/2004
several back surgeries including fusion of C5 + C6 and C6+C7, L3 +S1, L4+L5 [id number]
High cholesterol
Polyneuropathy
Hypertension
Seizures
Ulcers/Gastritis
Hx Fall
Depression/Anxiety
Heart catheterization 01/17/2008, 04/24/14
Plan
Prior history of lung disease is noted including COPD, severe restrictive lung disease, former smoker, severe HUGO
Prior PFTs demonstrating severe restrictive lung defect
Respiratory status remains tenuous.
Continues up about oxygen--currently on BiPAP.
ABG 11/03/25--75/81/7.33
BiPAP as tolerated.
Nebulizers-DuoNeb's and budesonide
Steroids-no change.
Mucolytic
Aspiration precautions.
Mucus clearing devices..
CT chest06/2025-minimal right pleural fluid.
CT chest 09/2025-moderate loculated pleural fluid with atelectasis
Chest x-ray 11/02/25 with increased pleural fluid on the right and ultrasound noted-large right pleural fluid
Contacted interventional radiology for diagnostic and therapeutic right thoracentesis. 11/03/25.
Reviewed thoracentesis with patient-patient willing
Cultures reviewed.
MRSA screen positive.
Blood cultures pending.
Influenza negative
Empiric antibiotic-vancomycin and Zosyn
Diuresis as tolerated
Monitor weight, intake, output, renal function and lower extremity edemaPrior history of lung disease is noted including COPD, severe restrictive lung disease, former smoker, severe HUGO
Echocardiogram-pending
He is currently DNR, Dr. Finney verified the status with patient and his family
If he does not clinically improve, they are all in agreement that he would want to be made comfortable
Diagnostic Data
Chest X- Ray:11/02/25- Large partially loculated right pleural effusion with associated atelectasis and/or pneumonia, likely similar to prior CT.
CT Scan: CHEST 10/21/25- There is an increased moderate, loculated right-sided pleural effusion with adjacent opacities within the posterior lateral right lung which may represent atelectasis although pneumonia is possible.
There is opacification of the proximal right lower lobe bronchus which may represent mucous plugging although a mass is possible. Consider bronchoscopy for further evaluation.
There is a mildly displaced sternal body fracture. Additionally there is a compression deformity of the T8 vertebral body. These are new from imported CT in 2023 although similar appearance to recent prior CT.
07/07/25- Overall low lung volumes with some interstitial changes, many of which may be chronic. Irregular lobulated ill-defined 'consolidation' in the lower lobe of the right lung which although could represent atelectasis and/or pneumonia,
malignancy cannot be excluded. Are there prior outside studies for comparison? If not, consider PET scan with dual point imaging.
.
Subjective Data
-
Date of Service:
Date of Service: November 03, 2025
Chief Complaint: Pulmonary Follow Up and Dyspnea Follow Up
Subjective:
Patient wearing BiPAP, still with significant shortness of breath, no chest pain or abdominal pain
Review of Systems
General: Other ( per HPI)
Objective Data
Data Reviewed
Vital Signs / I&O:
Vital Signs
Temp Pulse Resp BP Pulse Ox
97.9 F 88 20 134/68 95
11/03/25 08:01 11/03/25 07:57 11/03/25 06:45 11/03/25 07:57 11/03/25 07:34
Intake and Output
11/02/25 11/03/25 11/04/25
06:59 06:59 06:59
Output Total 425 / 425
Balance -25 / -25 -425 / -425
SaO2: 95
Nasal Cannula flow liters per minute: 4
Physical Exam
General: Respiratory Distress (n) and Comfortable
HEENT: Normocephalic and Anicteric
Cardiovascular: Regular Rhythm
Respiratory: Clear ( diminished breath sounds at the right greater than left base), Wheeze (n), Crackles (n), Rhonchi, Non-Labored Respirations, Accessory Resp Muscle Use (n) and Stridor
GI: Soft, Non Distended and Non Tender
Neurology: Awake and Alert
Skin: Warm, Good Color, Cyanosis (n), Jaundice (n) and Rash (n)
Labs/Micro/Reports
Lab Data
11/03/25 03:35
11/03/25 03:35
Laboratory Results
11/02/25 11/02/25 11/03/25
12:42 16:33 04:41
PT 12.9
INR 0.96
APTT 29.2
pH 7.32 L 7.33 L
pCO2 76 H* 75 H*
pO2 76 L 81 L
HCO3 39.2 H 39.5 H
O2 Delivery Level
Microbiology
11/02/25 12:46 Nasal Swab Influenza Types A & B ([facility]) - Final
Negative for Influenza A & B, NAAT
Negative results must be combined with clinical observations
and patient history.
Nucleic Acid Amplification test (NAAT)performed on the
[employer] platform.
--- NOTE | 2025-11-03 09:07 | PTCARENOTE ---
pt aaox3. garbled speech old cva. states no pain. states he feels sob and requested to be back on the bipap after his neb treatment. diminished absent breath sounds. pt voiding 100-200 cc at a time. will monitor retention
--- NOTE | 2025-11-03 11:28 | PHA.VAN.FU ---
Vancomycin Assessment / Plan
- Assessment
Renal Function: Stable
WBC's are: Trending Down
In the past 24 hrs, patient has been: Afebrile
Concomitant Antimicrobials: Piperacillin/tazobactam
- Dosing Plan
Continue: Vancomycin 1250mg IV Q24h
- Monitoring Plan
No level(s) ordered at this time: Consider levels within the next few days. Will monitor renal function.
MRSA Screen: Ordered per protocol (results pending- will f/u today.)
- Follow Up
Pharmacy will continue to follow.
Vancomycin Follow UP
- -
Patient Age: 85
Patient Sex: Male
Vancomycin Day #: 2
Indication: Pulmonary/Respiratory
Requesting Provider: Dr. Vieira
Pertinent Antimicrobial Allergies:
No pertinent antibiotic allergies
Height / Weight:
Height 5 ft 1 in
Actual Weight 82.4 kg
Pertinent Past Medical History: BMI: 34.2
- Vital Signs / Lab Results
Temp Pulse Resp BP Pulse Ox
97.9 F 88 16 134/68 90
11/03/25 08:01 11/03/25 07:57 11/03/25 11:06 11/03/25 07:57 11/03/25 11:06
Lab Results - Hematology
11/02/25 11/03/25
12:42 03:35
WBC 13.0 H 10.9 H
Lab Results - Chemistry
11/02/25 11/03/25
12:42 03:35
BUN 25 H 31 H
Creatinine 0.9 1.0
Estimated Creat Clear 48
Albumin 3.8
11/02/25
13:43
Lactic Acid 1.1
Microbiology Results
11/02/25 12:46 Influenza Types A & B ([facility]) - Final
Nasal Swab Negative for Influenza A & B, NAAT
Negative results must be combined with clinical observations
and patient history.
Nucleic Acid Amplification test (NAAT)performed on the
[employer] NOW platform.
--- NOTE | 2025-11-03 11:29 | CHAP ---
Addendum entered by Zofia Carrasco 11/03/25 13:19:
Unfortunately, when Fr. Hanson came, Mr. Evans was out of the room at a procedure. He did pray with the family.
Original Note:
[employer] request relayed to Fr. Hanson, Monday on-call business excellence leader. He anticipates arriving early this afternoon.
--- NOTE | 2025-11-03 14:27 | PTCARENOTE ---
pt sent to IR and returned. israo 1250 out.
[2025-11-03 16:04] LABS: Body Fluid Second Tech EYM
[2025-11-03] MEDS: LOVENOX 40 MG SC (17:59)
[2025-11-03] MEDS: FLOMAX 0.4 MG PO (17:59)
[2025-11-03] MEDS: PROSCAR 5 MG PO (17:59)
[2025-11-03] MEDS: LIPITOR 10 MG PO (17:59)
[2025-11-03] MEDS: LEXAPRO 10 MG PO (17:59)
[2025-11-03] MEDS: KEPPRA 750 MG PO (17:59)
[2025-11-03] MEDS: MUCINEX PO (20:13)
[2025-11-03 20:45] LABS: Hematocrit 40.0 % (39.0-52.0); Hemoglobin 12.3 g/dL (13.0-18.0); Mean Corp Hgb Conc. 30.8 g/dL (33.0-37.0); Mean Corpuscular Volume 98.0 fL (80.0-94.0); Platelet Count 200 10^3/uL (130-400); Red Cell Dist. Width 13.6 % (11.5-14.5)
[2025-11-03 21:02] LABS: Blood Urea Nitrogen 38 mg/dl (9-20); Calcium 8.6 mg/dl (8.4-10.2); Chloride 98 mmol/L (98-107); Estimated Creatinine Clearance 40 ml/min; Glucose 152 mg/dl (70-99); Magnesium 2.7 mg/dl (1.6-2.3); Potassium 4.3 mmol/L (3.5-5.1); Sodium 138 mmol/L (135-145); eGFR 58.89
[2025-11-03 21:31] LABS: Carbon Dioxide 33 mmol/L (22-30)
[2025-11-03] MEDS: LYRICA 100 MG PO (21:54)
[2025-11-04] VITALS (17 sets, daily range): BP systolic 95–126; BP diastolic 56–83; PULSE 2–98; BMI 33.8
[2025-11-04] MEDS: ZOSYN 50 IV ×4 (02:15→19:40)
[2025-11-04] MEDS: SOLU-MEDROL PF 40 MG IV ×2 (02:15→12:49)
[2025-11-04 06:09] LABS: Hematocrit 41.5 % (39.0-52.0); Hemoglobin 12.7 g/dL (13.0-18.0); Mean Corp Hgb Conc. 30.6 g/dL (33.0-37.0); Mean Corpuscular Volume 101.0 fL (80.0-94.0); Platelet Count 194 10^3/uL (130-400); Red Cell Dist. Width 13.9 % (11.5-14.5)
[2025-11-04 06:33] LABS: Blood Urea Nitrogen 42 mg/dl (9-20); Calcium 8.7 mg/dl (8.4-10.2); Chloride 99 mmol/L (98-107); Estimated Creatinine Clearance 37 ml/min; Glucose 126 mg/dl (70-99); Magnesium 2.9 mg/dl (1.6-2.3); Potassium 4.9 mmol/L (3.5-5.1); Sodium 139 mmol/L (135-145); eGFR 53.50
--- NOTE | 2025-11-04 06:34 | PTCARENOTE ---
Cared for pt overnight. aaox3, at bedside & stayed overnight. Pt on 5LNC and bipap HS. VSS. at start of shift pt was in afib, EKG confirmed afib/flutter. ASSISTANT COOK notified. Apparently pt has hx of it though this nurse asked the pt and and they
stated he doesnt. Pt was sustaining 140's briefly, gave pO lopressor and pt now controlled in and out of afib. Currently 61bpm NSR. Will monitor.
[2025-11-04 06:42] LABS: Carbon Dioxide 38 mmol/L (22-30)
[2025-11-04] MEDS: VANCOCIN 275 MG IV (06:46)
[2025-11-04] MEDS: PULMICORT 0.5 MG INH ×2 (08:05→19:15)
[2025-11-04] MEDS: SODIUM CHLORIDE 3% FOR INHALATION 1 VIAL INH ×2 (08:05→19:15)
[2025-11-04] MEDS: DUONEB 3 ML INH ×4 (08:05→19:15)
--- NOTE | 2025-11-04 08:26 | W.PN.HOSP.TC ---
Today's Communication/Plan
-
Wean off BIPAP as tolerated
cont abx/diuretic
Scheduled Oxycodone switched to prn given concern sedation, monitor COWs score QIDPRN
Cardio eval new onset aflutter
follow Cx's
PT/OT eval
Assessment / Plan
Assessment / Plan
Physical Exam
General: no acute distress, appears comfortable though on BIPAP
HEENT: NormoCephalic and Anicteric
Respiratory: Decreased Breath Sounds (RLL); No Wheezes
Cardiac: S1/S2 and Regular Rhythm
GI: Soft and Non Tender
Musculoskeletal: No Edema
Neuro: Lethargic but arousable, following commands, limited conversation on BIPAP as above
Psych: Calm
85M sz d/o restrictive lung dz COPD chronic home O2 4L HUGO BIPAP RLS Anxiety/depression here for Acute on Chronic Respiratory Failure likely 2/2 RLL pna and associate large pleural effusion.
Acute on chronic hypoxic respiratory failure
Acute RLL pneumonia
Hx of COPD
Hx of Severe restrictive lung disease
- baseline 4L NC, on BIPAP wean as tolerated
- recently placed on Augmentin + Doxy without improvement
- IMU admit
- MRSA screen +
- cont Vancomycin and Zosyn empirically
- follow culture results
- nebs scheduled and prn
- mucolytics, anti-tussives
- 3% saline
- chest US appreciated large Right pleural effusion
- consult Pulmonary appreciated
- IR eval appreciated s/p Thoracentesis 11/03 1250 cc removed
New onset Aflutter overnight since spontaneously resolved
Cardio eval appreciated, Eliquis started for stroke risk reduction
Hx of seizures
- continue Keppra BID
HUGO on Nocturnal BIPAP
RLS
Anxiety/Depression hx
- continue Lexapro
HLD - statin
hx of multiple back surgeries
hx of Demyelinating neuropathy
- continue morphine QIDprn mod severe pain, IV morphine prn severe breakthru pain. Hold pump.
- cont Movantik
- continue Lyrica
BPH
- continue Finasteride, Flomax
Hx venous insufficiency
- continue oral Lasix
Hx of CAD
- aspirin/BB/Statin
DVT ppx: Eliquis
Code: DNR/DNI
Discussed with patient and patient's Larisa
I spent a total of 45 minutes with the patient or on the floor. More than 50% of this time involved counseling and coordination of care.
Anticipated Discharge: 24 - 48 hours
Subjective/Interval History
-
Date of Service: November 04, 2025
No acute distress, sitting up comfortably in bed, on BIAP, lethargic but arousable, following commands. Notes improvement in SOB since thoracentesis. Larisa present during evaluation.
Objective Data
-
Labs:
Laboratory Results
11/03/25 11/04/25
20:34 05:59
WBC 17.3 H 17.0 H
Hgb 12.3 L 12.7 L
Hct 40.0 41.5
Plt Count 200 194
Sodium 138 139
Potassium 4.3 4.9
Chloride 98 99
Carbon Dioxide 33 H 38 H
BUN 38 H 42 H
Creatinine 1.2 1.3
Glucose 152 H 126 H
Calcium 8.6 8.7
Vital Signs:
Vital Signs
Temp Pulse Resp BP Pulse Ox
97.5 F 102 22 125/65 97
11/04/25 07:40 11/04/25 08:14 11/04/25 08:14 11/04/25 06:00 11/04/25 08:14
I&O
11/03/25 11/04/25 11/05/25
06:59 06:59 06:59
Output Total 1124
Balance - -1124 /
--- NOTE | 2025-11-04 08:59 | PHA.VAN.FU ---
Vancomycin Assessment / Plan
- Assessment
Renal Function: SCR Increasing
WBC's are: Stable
In the past 24 hrs, patient has been: Afebrile
Concomitant Antimicrobials: piperacillin/tazobactam
- Dosing Plan
Adjust Regimen to: dosing by level given increasing trend in SCR
- Monitoring Plan
Random Level: 11/05 0600
- Follow Up
Pharmacy will continue to follow.
Vancomycin Follow UP
- -
Patient Age: 85
Patient Sex: Male
Vancomycin Day #: 3
Indication: Pulmonary/Respiratory
Requesting Provider: Dr. Vieira
Pertinent Antimicrobial Allergies:
No pertinent antibiotic allergies
Height / Weight:
Height 5 ft 1 in
Actual Weight 81.2 kg
Pertinent Past Medical History: BMI: 34.2, COPD (home O2)
- Vital Signs / Lab Results
Temp Pulse Resp BP Pulse Ox
97.5 F 102 22 125/65 97
11/04/25 07:40 11/04/25 08:14 11/04/25 08:14 11/04/25 06:00 11/04/25 08:14
Lab Results - Hematology
11/02/25 11/03/25 11/03/25
12:42 03:35 20:34
WBC 13.0 H 10.9 H 17.3 H
11/04/25
05:59
WBC 17.0 H
Lab Results - Chemistry
11/02/25 11/03/25 11/03/25
12:42 03:35 20:34
BUN 25 H 31 H 38 H
Creatinine 0.9 1.0 1.2
Estimated Creat Clear 48 40
Albumin 3.8
11/04/25
05:59
BUN 42 H
Creatinine 1.3
Estimated Creat Clear 37
Albumin
11/02/25
13:43
Lactic Acid 1.1
Microbiology Results
11/03/25 13:08 Gram Stain - Preliminary
Pleural Fluid
11/02/25 13:49 Blood Culture - Preliminary
Blood/Venous No Growth in 24 hours- Final report to follow
11/02/25 13:43 Blood Culture - Preliminary
Blood/Venous No Growth in 24 hours- Final report to follow
11/03/25 08:15 Nasal Screen MRSA (PCR) - Final
Nose Staph aureus MRSA
11/02/25 12:46 Influenza Types A & B ([facility]) - Final
Nasal Swab Negative for Influenza A & B, NAAT
Negative results must be combined with clinical observations
and patient history.
Nucleic Acid Amplification test (NAAT)performed on the
[employer] platform.
--- NOTE | 2025-11-04 10:49 | CON.CAR ---
Addendum entered and electronically signed by Reggie Cuevas MD 11/04/25 12:32:
I saw and examined the patient independently and performed majority of MDM.
The MECHANICAL FITTER's note was reviewed and I agree with the note with changes/additions below.
Comment: 85 yo male PMH of COPD admitted with PNA. We are consulted for new atrial flutter, typical, with RVR. He is now back in SR/SB. SOB is better. Exam with RRR, no murmurs, no edema. Tele: A flutter, HR 140s-->sinus overnight.
New atrial flutter, typical. Back in sinus. Continue metoprolol tartrate 25mg bid. CHADS2-VASC = 3. Stop ASA. Start eliquis 5mg bid.
PNA. Improving. Continue Abx.
Please call us back with additional questions.
Original Note:
Consultation
Consultation Request
Date/Time Consultation Requested: 11/04/2025 10:15
Date/Time Consultation Performed: 11/04/2025 10:50
Requesting Provider: Dr. Simon
Performing Provider: BRANDON Olivera for Dr. Cuevas
Reason for Consultation: New onset atrial flutter
Medical History
-
Chief Complaint: Shortness of breath
History of Present Illness:
Alirio Evans is a 85-year-old male (known to Dr. Marvin Amado at [facility]), with chronic hypoxic respiratory failure requiring 4 L nasal cannula, COPD, severe restrictive lung disease, nonobstructive CAD, seizure disorder, HUGO on
BiPAP, and former tobacco use who presented to the emergency department 11/02/2025 with severe shortness of breath. He was admitted with acute on chronic hypoxic respiratory failure in the setting of acute right lower lobe pneumonia. Cardiology was
consulted today for atrial flutter. He spontaneously converted to sinus rhythm. By report, he was asymptomatic in this rhythm. He denies chest pain, dizziness, and palpitations.
His daughter and are at the bedside. They deny the presence of cardiac stents, history of heart failure, and prior arrhythmias.
Past Medical History
Past Medical History: CAD (Nonobstructive), COPD (with restrictive lung disease, oxygen dependent), Seizures and Other (HUGO)
Past Surgical History: Orthopedic
Social History
Tobacco: Former Smoker
Employment: Retired
Family History
Family History: Reviewed & Not Pertinent
Allergies / Home Medications
Allergy/AdvReac Type Severity Reaction Status Date / Time
acetaminophen (From Percocet) AdvReac Nausea / Verified 11/02/25 12:14
Vomiting
oxycodone (From Percocet) AdvReac Nausea / Verified 11/02/25 12:14
Vomiting
propoxyphene (From AdvReac Nausea / Verified 11/02/25 12:14
Darvocet-N) Vomiting
�Medication �Instructions �Recorded �Confirmed �Type
Patient Own Morphine Pump 1 dose SC DIRECTED Pain 11/02/25 11/02/25 History
amoxicillin 875 mg-potassium 1 tab PO BID Infection 11/02/25 11/02/25 History
clavulanate 125 mg tablet
aspirin 81 mg tablet,delayed 81 mg PO DAILY Blood Clot 11/02/25 11/02/25 History
release Prevention/Tx
azithromycin 250 mg tablet 250 mg PO MOTUWETHFR COPD PPX 11/02/25 11/02/25 History
benzonatate 200 mg capsule 200 mg PO TIDPRN PRN COUGH 11/02/25 11/02/25 History
budesonide 0.5 mg/2 mL suspension 0.5 mg inhalation R BID 11/02/25 11/02/25 History
for nebulization Lung/Breathing Issues
calcium 500 mg 1 tab PO DAILY Supplement 11/02/25 11/02/25 History
(carb,gluconate)-magnesium 250 mg
(gluc,oxide) tablet
cholecalciferol (vitamin D3) 25 25 mcg PO DAILY Supplement 11/02/25 11/02/25 History
mcg (1,000 unit) tablet (Vitamin
D3)
doxycycline hyclate 100 mg capsule 100 mg PO BID Infection 11/02/25 11/02/25 History
dupilumab 300 mg/2 mL subcutaneous 600 mg SC Q2W Lung/Breathing Issues 11/02/25 11/02/25 History
pen injector (Dupixent)
escitalopram oxalate 10 mg tablet 10 mg PO QPM Mental Health/Anxiety 11/02/25 11/02/25 History
(Lexapro)
ferrous sulfate 325 mg (65 mg 325 mg PO DAILY Supplement 11/02/25 11/02/25 History
iron) tablet
finasteride 5 mg tablet 5 mg PO QPM Urinary Issue 11/02/25 11/02/25 History
fluorometholone acetate 0.1 % eye 1 drp LEFT EYE BID Eye Condition 11/02/25 11/02/25 History
drops,suspension
furosemide 20 mg tablet (Lasix) 20 mg PO DAILY Fluid 11/02/25 11/02/25 History
Retention/Swelling
glucosamine 375 ev-anjmmrkzs-xab 1 tab PO DAILY Supplement 11/02/25 11/02/25 History
no1 500 mg-C 15 mg-elisa 0.5 mg
tablet
(Xvxqqapjtng-Gtsrarvpzzd-XQG
Complex)
ipratropium 0.5 mg-albuterol 3 mg 3 ml inhalation R QID 11/02/25 11/02/25 History
(2.5 mg base)/3 mL nebulization Lung/Breathing Issues
soln
ipratropium bromide 0.02 % 0.5 mg inhalation R BID 11/02/25 11/02/25 History
solution for inhalation Lung/Breathing Issues
levetiracetam 500 mg tablet 500 mg PO DAILY Seizures 11/02/25 11/02/25 History
(Keppra)
levetiracetam 750 mg tablet 750 mg PO QPM Seizures 11/02/25 11/02/25 History
(Keppra)
lovastatin 40 mg tablet 40 mg PO QPM High Cholesterol 11/02/25 11/02/25 History
lysine 1,000 mg tablet 1,000 mg PO DAILY Supplement 11/02/25 11/02/25 History
metoprolol tartrate 25 mg tablet 25 mg PO BID Heart 11/02/25 11/02/25 History
Disease/Condition
morphine 15 mg immediate release 15 mg PO QID Pain 11/02/25 11/02/25 History
tablet
naloxegol 25 mg tablet (Movantik) 25 mg PO DAILY Gastrointestinal 11/02/25 11/02/25 History
Issue
omeprazole 40 mg capsule,delayed 40 mg PO DAILY Gastrointestinal 11/02/25 11/02/25 History
release Issue
pregabalin 50 mg capsule (Lyrica) 50 mg PO DAILY Pain 11/02/25 11/02/25 History
pregabalin 50 mg capsule (Lyrica) 100 mg PO HS Pain 11/02/25 11/02/25 History
tamsulosin 0.4 mg capsule 0.4 mg PO QPM Urinary Issue 11/02/25 11/02/25 History
therapeutic multivitamin 1 tab PO DAILY Supplement 11/02/25 11/02/25 History
timolol maleate 0.5 % eye drops 1 drp LEFT EYE BID Eye Condition 11/02/25 11/02/25 History
Review of Systems
-
History Source: Patient
All other systems: Negative unless noted
Constitutional: Fatigue
EENT: No Symptoms
Respiratory: Cough
Cardiac: No Symptoms
Abdomen/GI: No Symptoms
: No Symptoms
Musculoskeletal: No Symptoms
Skin: No Symptoms
Endocrine: No Symptoms
Hematologic/Lymphatic: No Symptoms
Physical Exam
Vital Signs
Temp Pulse Resp BP Pulse Ox
97.5 F 59 13 116/59 94
11/04/25 07:40 11/04/25 10:00 11/04/25 10:00 11/04/25 10:00 11/04/25 10:19
Lab Results
11/04/25 05:59
11/04/25 05:59
Troponin I 0.020 ng/ml 11/02/25 12:42
Vyr-S-Tbwbnonvrcy Pept 557 pg/ml 11/02/25 12:42
Physical Exam
General: Well Developed, Well Nourished and No Apparent Distress
HEENT: Normocephalic, Anicteric and Moist Mucous Membranes
Respiratory: Non Labored Respirations
Cardiac: S1/S2 and Regular Rhythm
Breast: Deferred by me
GI: Soft, Non Tender, Non Distended and Normal Bowel Sounds
Rectal: Deferred by Provider
Genito-urinary: No Costovertebral Tender
Musculoskeletal: No Clubbing and No Cyanosis
Skin: Warm and Dry
Neuro: AO x 3
Hematologic/Lymphatic: No Lymphadenopathy
Psych: Calm
Impression / Plan
-
I/P: 85M with chronic hypoxic respiratory failure requiring 4 L nasal cannula, COPD, severe restrictive lung disease, nonobstructive CAD, seizure disorder, HUGO on BiPAP, and former tobacco use who presented to the emergency department 11/02/2025 with
severe shortness of breath.
Primary bike designer: Dr. Marvin Amado ([place])
Acute on chronic hypoxic respiratory failure, in the setting of RLL pneumonia
Atrial flutter, type unknown
- Spontaneously back in sinus rhythm, continue metoprolol tartrate 25 mg twice daily, currently in sinus bradycardia
- Would defer antiarrhythmic management to primary bike designer (no dofetilide with azithromycin, no amiodarone with current lung function)
- Oral Anticoagulation: Stop ASA, start apixaban 5 mg twice daily (age 85, weight >60 kg, creatinine today 1.3)
- [id number]: Score at least 4 (HTN, age 75 or more, Vascular disease)
RLL PNA, per primary and pulmonary
COPD
Severe restrictive lung disease
CAD, nonobstructive, stable without chest pain, stopping ASA as initiating apixaban as above
Hypercholesterolemia, on lovastatin
HUGO, on nocturnal BiPAP
Chronic pain requiring opiates
Data Reviewed
-
EKG: Report Reviewed by me
Medical Tests (Nuc Med, Echo etc): Report Reviewed by me
Labs: Labs Reviewed by me
Old Records: Reviewed
[2025-11-04] MEDS: KEPPRA 500 MG PO (10:56)
--- NOTE | 2025-11-04 11:03 | W.PN.PUL.V3 ---
Today's Communication / Plan
-
Wean oxygen
BiPAP at night and during the daytime as needed
Diuresis antibiotics
Monitor for pleural fluid reaccumulation
Updated
Assessment
-
Patient is an 85-year-old male with previous history of chronic hypoxic respiratory failure, severe HUGO on BiPAP, COPD with severe restrictive lung defect presenting with worsening shortness of breath from home. Patient is noted to use 4 L nasal
cannula chronically at home. He was noted by his to have worsening shortness of breath. She had tried BiPAP temporarily before coming to the ER which was not helpful. He has prior CT imaging demonstrating loculated right pleural effusion.
He is also maintained on a morphine pump. He is notably DNR, confirmed by patient and family that they would not want aggressive measures. He is admitted to IMU for acute on chronic hypoxic respiratory failure. We are consulted for evaluation.
Acute on chronic hypoxic respiratory failure
Leukocytosis, mild
Right sided loculated pleural effusion, chronic
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
Conditions present prior to admission:
Severe COPD, follows with AF
6MWT performed 10/03/25 showing he needs 4L/min with rest and activity
Full PFTs from 05/02/2025 showed a severe restrictive lung defect
Severe HUGO, RDI of 98 in January 2008, and wears auto-BiPAP [id number] with PS: 2-7cmH2O, bled with 4L/min
Previously managed at [facility], transitioned care to in the past year
Former tobacco smoker, quit in [id number], smoked 0.5PPD x 20 years
RLD
Restless leg syndrome
Back injury x 8 surgeries, now on morphine pain pump/implanted 03/22/2004
several back surgeries including fusion of C5 + C6 and C6+C7, L3 +S1, L4+L5 [id number]
High cholesterol
Polyneuropathy
Hypertension
Seizures
Ulcers/Gastritis
Hx Fall
Depression/Anxiety
Heart catheterization 01/17/2008, 04/24/14
Plan
Prior history of lung disease is noted including COPD, severe restrictive lung disease, former smoker, severe HUGO
Prior PFTs demonstrating severe restrictive lung defect
Respiratory status remains tenuous-somewhat improved after thoracentesis
Continues up about oxygen--currently on BiPAP.
ABG 11/03/25--75/81/7.33
BiPAP continues as tolerated.
Nebulizers-DuoNeb's and budesonide
Steroids-no change.
Mucolytic
Aspiration precautions.
Mucus clearing devices..
CT chest06/2025-minimal right pleural fluid.
CT chest 09/2025-moderate loculated pleural fluid with atelectasis
Chest x-ray 11/02/25 with increased pleural fluid on the right and ultrasound noted-large right pleural fluid
Thoracentesis right side 11/03/25--1250 mL serosanguineous pleural fluid, pH 743, WBC 870, total protein 4.5, LDH 359-exudate, cultures negative, cytology pending
Chest x-ray 11/03/2025-no pneumothorax, moderate probable loculated right pleural effusion improved
Cultures reviewed.
MRSA screen positive.
Blood cultures no growth.
Influenza negative
Empiric antibiotic-vancomycin and Zosyn
Diuresis as tolerated
Monitor weight, intake, output, renal function and lower extremity edemaPrior history of lung disease is noted including COPD, severe restrictive lung disease, former smoker, severe HUGO
Echocardiogram-11/03/2025-EF 55-60%, no significant valvular abnormalities
Dr. Rivera updated daughter at the bedside 11/04/2025-explained tenuous and significantly compromised respiratory status, potential for pleural fluid reaccumulation
He is currently DNR, Dr. Finney verified the status with patient and his family
If he does not clinically improve, they are all in agreement that he would want to be made comfortable
Diagnostic Data
Chest X- Ray:11/02/25- Large partially loculated right pleural effusion with associated atelectasis and/or pneumonia, likely similar to prior CT.
CT Scan: CHEST 10/21/25- There is an increased moderate, loculated right-sided pleural effusion with adjacent opacities within the posterior lateral right lung which may represent atelectasis although pneumonia is possible.
There is opacification of the proximal right lower lobe bronchus which may represent mucous plugging although a mass is possible. Consider bronchoscopy for further evaluation.
There is a mildly displaced sternal body fracture. Additionally there is a compression deformity of the T8 vertebral body. These are new from imported CT in 2023 although similar appearance to recent prior CT.
07/07/25- Overall low lung volumes with some interstitial changes, many of which may be chronic. Irregular lobulated ill-defined 'consolidation' in the lower lobe of the right lung which although could represent atelectasis and/or pneumonia,
malignancy cannot be excluded. Are there prior outside studies for comparison? If not, consider PET scan with dual point imaging.
.
Subjective Data
-
Date of Service:
Date of Service: November 04, 2025
Chief Complaint: Pulmonary Follow Up and Dyspnea Follow Up
Subjective:
Sleepy, on BiPAP, unsure whether thoracentesis helped his shortness of breath, no chest pain or abdominal pain
Review of Systems
General: Other (Per HPI)
Objective Data
Data Reviewed
Vital Signs / I&O:
Vital Signs
Temp Pulse Resp BP Pulse Ox
97.5 F 59 13 116/59 94
11/04/25 07:40 11/04/25 10:00 11/04/25 10:00 11/04/25 10:00 11/04/25 10:19
Intake and Output
11/03/25 11/04/25 11/05/25
06:59 06:59 06:59
Output Total 1125 / 1125
Balance - / -25 -1125 / -1125
SaO2: 94
Nasal Cannula flow liters per minute: 5
Physical Exam
General: Respiratory Distress (n) and Comfortable
HEENT: Normocephalic and Anicteric
Cardiovascular: Regular Rhythm
Respiratory: Clear ( diminished breath sounds at the right greater than left base), Wheeze (n), Crackles (n), Rhonchi, Non-Labored Respirations, Accessory Resp Muscle Use (n) and Stridor
GI: Soft, Non Distended and Non Tender
Neurology: Awake and Alert
Skin: Warm, Good Color, Cyanosis (n), Jaundice (n) and Rash (n)
Labs/Micro/Reports
Lab Data
11/04/25 05:59
11/04/25 05:59
Microbiology
11/03/25 13:08 Pleural Fluid Body Fluid Culture - Preliminary
No Growth After 18-24 Hours
11/03/25 13:08 Pleural Fluid Gram Stain - Preliminary
11/02/25 13:49 Blood/Venous Blood Culture - Preliminary
No Growth in 24 hours- Final report to follow
11/02/25 13:43 Blood/Venous Blood Culture - Preliminary
No Growth in 24 hours- Final report to follow
11/03/25 08:15 Nose Nasal Screen MRSA (PCR) - Final
Staph aureus MRSA
11/02/25 12:46 Nasal Swab Influenza Types A & B ([facility]) - Final
Negative for Influenza A & B, NAAT
Negative results must be combined with clinical observations
and patient history.
Nucleic Acid Amplification test (NAAT)performed on the
[employer] platform.
[2025-11-04] MEDS: LYRICA 50 MG PO (11:12)
[2025-11-04] MEDS: MORPHINE SULFATE PO ×2 (11:13→18:10)
[2025-11-04] MEDS: LASIX 20 MG PO (11:13)
[2025-11-04] MEDS: MOVANTIK 25 MG PO (11:13)
[2025-11-04] MEDS: LOPRESSOR 25 MG PO ×2 (11:14→19:44)
--- NOTE | 2025-11-04 11:14 | PN.CDI ---
CDI
- -
CDI:
Physician Documentation Request
Admit Date: 11/02/25 14:45
Dear
[facility] is using an adapted version of the 2016 Third International Consensus Definitions for Sepsis and Septic Shock (Sepsis-3) where sepsis is defined as life threatening organ dysfunction caused by a deregulated host response to infection.
Please reference the official [facility] Sepsis Recognition Tool for further information, which can be found on the Intranet under Infection Prevention.
Clinical Indicators Include:
H&P states and 11/03 hospitalist progress note 'acute on chronic hypoxic respiratory failure. Acute RLL pneumonia'
HR: 101-113 on presentation
RR: 22-27 on presentation
WBC: 11/02 13.0
Treatment: Vancomycin and Zosyn
Based on your medical judgment, can you further clarify the diagnosis being monitored/treated this admission?
� Sepsis due to pneumonia with organ dysfunction of acute om chronic hypoxic respiratory failure
� pneumonia only
� Other
� Clinically unable to determine
Use of terms such as suspected, likely, concern for, or probable (associated with a specific diagnosis that is being evaluated, monitored, or treated as if it exists) are acceptable and can be coded in the inpatient setting when documented at the
time of discharge.
Please use your independent medical judgement in providing your response.
Thank you,
Rukhsana Baltazar RN, BSN
CDI Specialist
tiger text
[2025-11-04] MEDS: FML 0.1% OPHTHALMIC SUSPENSION 1 DROP LEFT EYE ×2 (11:15→19:42)
[2025-11-04] MEDS: ASPIR LOW (ENTERIC COATED) PO (11:15)
[2025-11-04] MEDS: PROTONIX 40 MG PO (11:15)
[2025-11-04] MEDS: TIMOPTIC 0.5% OPHTHALMIC SOLUTION 1 DROP LEFT EYE ×2 (11:15→19:42)
[2025-11-04] MEDS: NON-FORMULARY ITEM 300 MG SC (11:16)
--- NOTE | 2025-11-04 11:33 | CM ---
Patient seen with and daughter in IMU. Patient daughter confirmed that patient has home BIPAP and home O2. Patient currently sleeping and patient daughter indicated plan is for discharge home when medically appropriate but would be open for
placement if needed. is primary caregiver. CM will continue to follow for discharge planning needs.
Plan; home with home O2/BIPAP vs SNF pending medical treatment plan.
[2025-11-04] MEDS: ELIQUIS 5 MG PO ×2 (12:49→19:40)
[2025-11-04] MEDS: MUCINEX PO ×2 (12:50→19:41)
--- NOTE | 2025-11-04 15:14 | PTCARENOTE ---
Patient drowsy and sleeping most of the day. Patient is back on BIPAP. Patient was briefly off BIPAP, o2 at 5L. Patient at a small meal around 11am took most of his oral medications whole one at a time and with some water. Patient not at his
baseline according to his family. Alert and oriented but slow to respond. Monitoring patient's urine output and bladder scan as needed. SB/SR on monitor. No episodes of afib/flutter. Will monitor.
--- NOTE | 2025-11-04 18:30 | PTCARENOTE ---
Patient more awake after wearing BIPAP all day. Currently on 4L o2, pulse ox 98%-100%. Patient able to take all of his oral medications at this time. More conversant. Patient used urinal with assistance and was INC of urine. Bladder scanned as
needed. VS stable.
[2025-11-04] MEDS: KEPPRA 750 MG PO (18:32)
[2025-11-04] MEDS: FLOMAX 0.4 MG PO (18:32)
[2025-11-04] MEDS: PROSCAR 5 MG PO (18:32)
[2025-11-04] MEDS: LEXAPRO 10 MG PO (18:33)
[2025-11-04] MEDS: LIPITOR 10 MG PO (18:33)
[2025-11-04] MEDS: LYRICA 100 MG PO (19:41)
[2025-11-05] VITALS (17 sets, daily range): BP systolic 106–154; BP diastolic 52–76; PULSE 2–81; O2SAT 95; BMI 34.1
[2025-11-05] MEDS: ZOSYN 50 IV ×4 (01:57→19:49)
[2025-11-05] MEDS: SOLU-MEDROL PF 40 MG IV ×2 (01:57→13:02)
[2025-11-05 05:41] LABS: Hematocrit 40.8 % (39.0-52.0); Hemoglobin 12.5 g/dL (13.0-18.0); Mean Corp Hgb Conc. 30.6 g/dL (33.0-37.0); Mean Corpuscular Volume 99.8 fL (80.0-94.0); Platelet Count 198 10^3/uL (130-400); Red Cell Dist. Width 13.8 % (11.5-14.5)
--- NOTE | 2025-11-05 05:48 | PTCARENOTE ---
Caring for pt overnight. Pt very drowsy in beginning of shift, wore bipap all night up to 10L on bipap. Pt is now awake alert and seems back to baseline. VSS. 5LNC off bipap. Q2T. NSR/SB on monitor. no BM. Pt made small amount of urine, unable to
void more, BS for 669cc, pt refusing straight cath. Giving pt more time to try to urinate, will follow up. Will continue to monitor.
[2025-11-05 06:05] LABS: Blood Urea Nitrogen 49 mg/dl (9-20); Calcium 8.8 mg/dl (8.4-10.2); Chloride 99 mmol/L (98-107); Estimated Creatinine Clearance 32 ml/min; Glucose 109 mg/dl (70-99); Magnesium 2.8 mg/dl (1.6-2.3); Potassium 4.4 mmol/L (3.5-5.1); Sodium 140 mmol/L (135-145); eGFR 45.06
[2025-11-05 06:26] LABS: Carbon Dioxide 37 mmol/L (22-30)
[2025-11-05] MEDS: DUONEB 3 ML INH ×4 (07:35→19:15)
[2025-11-05] MEDS: PULMICORT 0.5 MG INH ×2 (07:35→19:15)
[2025-11-05] MEDS: SODIUM CHLORIDE 3% FOR INHALATION 1 VIAL INH ×2 (07:35→19:15)
--- NOTE | 2025-11-05 07:44 | PTCARENOTE ---
Received report from night RN. Patient awake and alert this AM. It was reported to me that patient wore BIPAP all night. Patient is currently on 4L o2, spo2 94%-97% respirations 21. Patient chronic back pain is controlled at this time. Will
continue to monitor pain. Ordered breakfast for patient. SR on monitor HR 60-70's
--- NOTE | 2025-11-05 07:46 | W.PN.HOSP.TC ---
Today's Communication/Plan
-
cont abx, renal dosing
EEG, Neuro eval
wean BIPAP/O2 as tolerated
PT/OT
Hold Lasix d/t BUD, monitor renal function
Bladder scan prn
Pathology results pleural fluid later noted small cell lung cancer, hospitalist will discuss with patient and patient's in AM, tomorrow
Assessment / Plan
Assessment / Plan
Physical Exam
General: no acute distress, appears comfortable though on BIPAP
HEENT: NormoCephalic and Anicteric
Respiratory: Decreased Breath Sounds (RLL); No Wheezes
Cardiac: S1/S2 and Regular Rhythm
GI: Soft and Non Tender
Musculoskeletal: No Edema
Neuro: Lethargic but arousable, following commands, limited conversation on BIPAP as above
Psych: Calm
85M sz d/o restrictive lung dz COPD chronic home O2 4L HUGO BIPAP RLS Anxiety/depression here for Acute on Chronic Respiratory Failure likely 2/2 RLL pna and associate large pleural effusion.
Acute on chronic hypoxic respiratory failure
Acute RLL pneumonia
Hx of COPD
Hx of Severe restrictive lung disease
- baseline 4L NC, on BIPAP wean as tolerated
- recently placed on Augmentin + Doxy without improvement
- IMU admit
- MRSA screen +
- cont Vancomycin and Zosyn empirically
- follow culture results
- nebs scheduled and prn
- mucolytics, anti-tussives
- 3% saline
- chest US appreciated large Right pleural effusion
- consult Pulmonary appreciated
- IR eval appreciated s/p Thoracentesis 11/03 1250 cc removed
New onset Aflutter overnight since spontaneously resolved
Cardio eval appreciated, Eliquis started for stroke risk reduction
BUD
Cr trended up to 1.5, initial Cr 0.9 on admission
suspect pre-renal 2/2 AMS poor oral intake since improved
Possibly obstructive, patient intermittently requiring straight cath
home Lasix placed on hold
Abx and Eliquis adjusted for renal dosing (criteria for Eliquis renal dosing 2.5 mg BID age >80 and Cr 1.5)
Monitor renal function
Hx of seizures
Noted Periodic Jerking Movements though AOx3
Concern for uncontrolled sz d/o
- continue Keppra BID
- Neuro eval requested
- check EEG
HUGO on Nocturnal BIPAP
RLS
Anxiety/Depression hx
- continue Lexapro
HLD - statin
hx of multiple back surgeries
hx of Demyelinating neuropathy
- pain pump continued
- continue morphine QIDprn mod severe pain, IV morphine prn severe breakthru pain.
- cont Movantik
- continue Lyrica
BPH
- continue Finasteride, Flomax
Hx venous insufficiency
- continue oral Lasix
Hx of CAD
- aspirin/BB/Statin
DVT ppx: Eliquis
Code: DNR/DNI
Discussed with patient and patient's Larisa
I spent a total of 45 minutes with the patient or on the floor. More than 50% of this time involved counseling and coordination of care.
Anticipated Discharge: 24 - 48 hours
Subjective/Interval History
-
Date of Service: November 05, 2025
Mental status significantly improved, off bipap on nasal cannula, sitting up comfortably in chair. Larisa present during evaluation. noted periodic jerking movements unclear etiology. AOx3 conversant coherent.
Objective Data
-
Labs:
Laboratory Results
11/05/25
05:18
WBC 13.4 H
Hgb 12.5 L
Hct 40.8
Plt Count 198
Sodium 140
Potassium 4.4
Chloride 99
Carbon Dioxide 37 H
BUN 49 H
Creatinine 1.5 H
Glucose 109 H
Calcium 8.8
Vital Signs:
Vital Signs
Temp Pulse Resp BP Pulse Ox
98.2 F 66 18 117/75 97
11/05/25 07:30 11/05/25 07:38 11/05/25 07:38 11/05/25 06:00 11/05/25 07:38
I&O
11/04/25 11/05/25 11/06/25
06:59 06:59 06:59
Intake Total 810 / 810
Output Total 1125 / 1125 730 / 730
Balance -1125 / -1125 80 / 80
--- NOTE | 2025-11-05 08:20 | PHA.VAN.FU ---
Vancomycin Assessment / Plan
- Assessment
Renal Function: SCR Increasing
WBC's are: Trending Down
In the past 24 hrs, patient has been: Afebrile
Concomitant Antimicrobials: piperacillin/tazobactam
- Assessment - Therapeutic Drug Monitoring
Random Level: 17 - drawn ~22.5H after previous dose of 1250mg
level drawn after 3rd total dose, 2nd maintenance dose
- Dosing Plan
Dosing by Level: Re-dose today (Vanc 750mg)
750mg predicts a level about 10.2 with linear PK; although, patient likely not fully at steady state
If level does not decrease, may need to prolong re-dosing interval
- Monitoring Plan
Random Level: 11/06 600
- Follow Up
Pharmacy will continue to follow.
Vancomycin Follow UP
- -
Patient Age: 85
Patient Sex: Male
Vancomycin Day #: 4
Indication: Pulmonary/Respiratory
Requesting Provider: Dr. Vieira
Pertinent Antimicrobial Allergies:
No pertinent antibiotic allergies
Height / Weight:
Height 5 ft 1 in
Actual Weight 81.788 kg
Pertinent Past Medical History: BMI: 34.2, COPD (home O2)
- Vital Signs / Lab Results
Temp Pulse Resp BP Pulse Ox
98.2 F 66 18 117/75 97
11/05/25 07:30 11/05/25 07:38 11/05/25 07:38 11/05/25 06:00 11/05/25 07:38
Lab Results - Hematology
11/02/25 11/03/25 11/03/25
12:42 03:35 20:34
WBC 13.0 H 10.9 H 17.3 H
11/04/25 11/05/25
05:59 05:18
WBC 17.0 H 13.4 H
Lab Results - Chemistry
1211/03/25 11/03/25
12:42 03:35 20:34
BUN 25 H 31 H 38 H
Creatinine 0.9 1.0 1.2
Estimated Creat Clear 48 40
Albumin 3.8
11/04/25 11/05/25
05:59 05:18
BUN 42 H 49 H
Creatinine 1.3 1.5 H
Estimated Creat Clear 37 32
Albumin
11/02/25
13:43
Lactic Acid 1.1
Microbiology Results
11/02/25 13:49 Blood Culture - Preliminary
Blood/Venous No Growth in 48 hours- Final report to follow
11/02/25 13:43 Blood Culture - Preliminary
Blood/Venous No Growth in 48 hours- Final report to follow
11/03/25 13:08 Body Fluid Culture - Preliminary
Pleural Fluid No Growth After 18-24 Hours
Gram Stain - Preliminary
11/03/25 08:15 Nasal Screen MRSA (PCR) - Final
Nose Staph aureus MRSA
Therapeutic Drug Monitoring
Random Vancomycin 17.0 ug/ml 11/05/25 05:18
[2025-11-05] MEDS: MUCINEX 1200 MG PO ×2 (08:50→19:52)
[2025-11-05] MEDS: KEPPRA 500 MG PO (08:50)
[2025-11-05] MEDS: LYRICA 50 MG PO (08:52)
[2025-11-05] MEDS: ELIQUIS 2.5 MG PO ×2 (08:53→19:52)
[2025-11-05] MEDS: PROTONIX 40 MG PO (08:53)
[2025-11-05] MEDS: LOPRESSOR 25 MG PO ×2 (08:54→21:44)
[2025-11-05] MEDS: MOVANTIK 25 MG PO (08:54)
[2025-11-05] MEDS: FML 0.1% OPHTHALMIC SUSPENSION 1 DROP LEFT EYE ×2 (08:55→21:46)
[2025-11-05] MEDS: TIMOPTIC 0.5% OPHTHALMIC SOLUTION 1 DROP LEFT EYE ×2 (08:55→21:46)
--- NOTE | 2025-11-05 10:37 | CON.ID ---
Addendum entered and electronically signed by Nora Johnson MD 11/05/25 15:06:
[employer] OUT WORKER consult
Original Note:
Consultation
-
Date/Time Consultation Requested: 11/05/25 9:50
Date/Time Consultation Performed: 11/05/25 10:37
Requesting Provider: Dr Simon
Performing Provider: Dr Johnson
Reason for Consultation: RLL PNA failed outpt tx on vanc zosyn MRSA+ cx's so far neg
Chief Complaint / Past History
Chief Complaint
shortness of breath
History of Present Illness
Mr Bey is an 85 year old male with history notable for COPD/HUGO/RLD on home O2 4L/nocturnal bipap/dupixent, seizure disorder, chronic pain on morphine pump, who presented here for worsening shortness of breath not relieved by bipap. He saw
his cold type artist, 10/03 for routine follow up, he complained of drowsiness, cough and hoarse voice. His morphine pump was recently decreased. There was concern that he was not using his inhalers as frequently as normal. A CT chest was planned to
reassess a 4.1 cm opacity in the right lung base from 07/07/25 also seen 10/18/24. He had the CT scan two weeks later 10/21 CT chest showed increased moderate, loculated right sided pleural effusion with adjacent opacities, opacification of the
proximal right lower lobe bronchus - possibly mucous plugging. On 10/27 he called his cold type artist patient reported no fevers or chills, but having shortness of breath, coughing and sputum production. It was felt that the pleural effusion was
likely too small for thoracentesis and doxycycline Augmentin was prescribed which he took until he developed progressive shortness ov breath 11/01 and cough. No fever or chills. Was compliant with his diuretics. Presented to the hospital for
dyspnea.
Since arrival here he has been afebrile, bp stable, on 4-6 L NC, initial wbc 13 today 13.4, hgb 12.4, plt 190, no L shift but a monocytosis noted, ABG 7.32/76/76/39.2, na 139, cr 0.9, glucosse 111, lactic acid 1.1, 11/02 CXR portable: large partially
loculated R pleural effusion with atelectasis or pneumonia - similar to prior CT, 11/03 he underwent thoracentesis with 1.25 L serosanguineous fluid removed, pH 7.43, wbc 870, monocytic, glucose 119, protein 4.5, LDH 359, covid ag negative, follow up
CXR no pneumothorax, moderate probably loculated right pleural effusion, body fluid is no growth at 48 hours, blood cultures x2 no growth at 48 hours, mrsa screen positive, influenza negative, patient was initially given cefepime and vancomycin then
switched to zosyn and vancomycin, course additionally notable for new a flutter with RVR started on metoprolol, ID is consulted for assistance with management. Pulmonary service has discussed with patient and family and if no clinical improvement
comfort measures would be their next step.
Past History
Additional Past Medical History:
seizures, COPD on chronic home O2, HUGO on nocturnal BIPAP, RLS, Anxiety/Depression, HLD, hx of multiple back surgeries, restrictive lung disease, BPH
Additional Past Surgical History:
Spinal surgeries, cath, colonoscopy, cataracts, morphine pump
Allergy History:
acetaminophen (From Percocet) Adverse Reaction (Verified 11/02/25 12:14)
Nausea / Vomiting
oxycodone (From Percocet) Adverse Reaction (Verified 11/02/25 12:14)
Nausea / Vomiting
propoxyphene (From Darvocet-N) Adverse Reaction (Verified 11/02/25 12:14)
Nausea / Vomiting
Medications Reviewed: Yes
Social History
Tobacco: Former Smoker
Alcohol: None
Drug: None
Family History
Family History: Not Pertinent
Review of Systems
Review of Systems
All other systems: Negative unless noted
Constitutional: Fatigue
EENT: No Symptoms
Respiratory: Cough
Cardiac: No Symptoms
Abdomen/GI: No Symptoms
: No Symptoms
Musculoskeletal: No Symptoms
Skin: No Symptoms
Endocrine: No Symptoms
Hematologic/Lymphatic: No Symptoms
Vital Signs
Temp Pulse Resp BP Pulse Ox
98.2 F 66 18 117/75 97
11/05/25 07:30 11/05/25 07:38 11/05/25 07:38 11/05/25 06:00 11/05/25 07:38
Physical Exam
Physical Exam
Constitutional: No Acute Distress
Cardiovascular: Regular Rate and S1/S2; Negative Murmur or Rub
Pulmonary: Other (mild tachypnea); Negative Symmetric (diminished at the right base), Wheezes, Rales or Rhonchi
Gastrointestinal: Soft, Non Tender, Non Distended and Normal Bowel Sounds
Skin: Warm and Dry; Negative Rash or Jaundice
Lab / Diagnostic Study Results
11/05/25 05:18
11/05/25 05:18
Abs Immat Gran (auto) 0.1 10^3/uL (0-0.05) H 11/02/25 12:42
Absolute Neuts (auto) 9.7 10^3/uL (1.4-6.5) H 11/02/25 12:42
Absolute Lymphs (auto) 1.5 10^3/uL (1.2-3.4) 11/02/25 12:42
Absolute Monos (auto) 1.5 10^3/uL (0.1-0.6) H 11/02/25 12:42
Absolute Basos (auto) 0.1 10^3/uL (0-0.2) 11/02/25 12:42
Immature Gran % 0.8 % (0-0.5) H 11/02/25 12:42
Neutrophils % 74.1 % (42.2-75.2) 11/02/25 12:42
Lymphocytes % 11.7 % (20.5-51.1) L 12/07/25 12:42
Monocytes % 11.6 % (1.7-9.3) H 11/02/25 12:42
Eosinophils % 1.4 % (0-6) 11/02/25 12:42
Basophils % 0.4 % (0-2) 11/02/25 12:42
PT 12.9 Sec (11.4-14.6) 11/02/25 12:42
INR 0.96 11/02/25 12:42
Lactic Acid 1.1 mmol/L (0.7-2.0) 11/02/25 13:43
Microbiology Results
Micro:
11/03/25 13:08 Body Fluid Culture - Preliminary
Pleural Fluid No Growth After 48 Hours
Gram Stain - Preliminary
11/02/25 13:49 Blood Culture - Preliminary
Blood/Venous No Growth in 48 hours- Final report to follow
11/02/25 13:43 Blood Culture - Preliminary
Blood/Venous No Growth in 48 hours- Final report to follow
11/03/25 08:15 Nasal Screen MRSA (PCR) - Final
Nose Staph aureus MRSA
11/02/25 12:46 Influenza Types A & B ([facility]) - Final
Nasal Swab Negative for Influenza A & B, NAAT
Negative results must be combined with clinical observations
and patient history.
Nucleic Acid Amplification test (NAAT)performed on the
[employer] platform.
Laboratory Tests
11/03/25
Pleural fluid 13:08
Fluid pH 7.43
Fluid WBC 870
Fluid Mononuclear Cell 91.6
Fl Polymorphonucl Cell 8.4
Fluid Glucose 119
Fluid Total Protein 4.5
Fluid LDH 359
Assessment / Plan
Exudative Right Pleural Effusion
Seizure disorder on Keppra
COPD on dupixent, HUGO, RLD
BUD - progressive
- blood cultures x2 in progress
- 11/03 body fluid culture no growth at 48 hours
- MRSA nasal screen positive
- LDH on the serum ordered
- follow renal function - on home dose of lasix; dose adjust antibiotics PRN
- monitoring for pleural fluid reaccumulation
- on methylprednisolone 40 mg IV q12 started 11/03
- continue vancomycin and zosyn for now, follow cultures
--- NOTE | 2025-11-05 10:51 | W.PN.PUL.V3 ---
Today's Communication / Plan
-
wean oxygen.
Monitor for oversedation with opiates.
No change in Decadron.
BiPAP
Antibiotics
Assessment
-
Patient is an 85-year-old male with previous history of chronic hypoxic respiratory failure, severe HUGO on BiPAP, COPD with severe restrictive lung defect presenting with worsening shortness of breath from home. Patient is noted to use 4 L nasal
cannula chronically at home. He was noted by his to have worsening shortness of breath. She had tried BiPAP temporarily before coming to the ER which was not helpful. He has prior CT imaging demonstrating loculated right pleural effusion.
He is also maintained on a morphine pump. He is notably DNR, confirmed by patient and family that they would not want aggressive measures. He is admitted to IMU for acute on chronic hypoxic respiratory failure. We are consulted for evaluation.
Acute on chronic hypoxic respiratory failure
Leukocytosis, mild
Right sided loculated pleural effusion, chronic
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
Conditions present prior to admission:
Severe COPD, follows with AF
6MWT performed 10/03/25 showing he needs 4L/min with rest and activity
Full PFTs from 05/02/2025 showed a severe restrictive lung defect
Severe HUGO, RDI of 98 in January 2008, and wears auto-BiPAP [id number] with PS: 2-7cmH2O, bled with 4L/min
Previously managed at [facility], transitioned care to in the past year
Former tobacco smoker, quit in [id number], smoked 0.5PPD x 20 years
RLD
Restless leg syndrome
Back injury x 8 surgeries, now on morphine pain pump/implanted 03/22/2004
several back surgeries including fusion of C5 + C6 and C6+C7, L3 +S1, L4+L5 [id number]
High cholesterol
Polyneuropathy
Hypertension
Seizures
Ulcers/Gastritis
Hx Fall
Depression/Anxiety
Heart catheterization 01/17/2008, 04/24/14
Plan
Prior history of lung disease is noted including COPD, severe restrictive lung disease, former smoker, severe HUGO
Prior PFTs demonstrating severe restrictive lung defect
Respiratory status remains tenuous-somewhat improved after thoracentesis
Continues up about oxygen--4 L-97% saturation
. Note:ABG 11/03/25--75/81/7.33
BiPAP continues as tolerated.
Nebulizers-DuoNeb's and budesonide
Steroids-no change-Currently on Solu-Medrol 40 mg IV every 12 hours
Mucolytic
Aspiration precautions.
Mucus clearing devices..
CT chest06/2025-minimal right pleural fluid.
CT chest 09/2025-moderate loculated pleural fluid with atelectasis
Chest x-ray 11/02/25 with increased pleural fluid on the right and ultrasound noted-large right pleural fluid
Thoracentesis right side 11/03/25--1250 mL serosanguineous pleural fluid, pH 743, WBC 870, total protein 4.5, LDH 359-exudate, cultures negative, cytology pending
Chest x-ray 11/03/2025-no pneumothorax, moderate probable loculated right pleural effusion improved
Cultures reviewed.
MRSA screen positive.
Blood cultures no growth.
Influenza negative
Empiric antibiotic-vancomycin and Zosyn
Diuresis continues as tolerated
Monitor weight, intake, output, renal function and lower extremity edemaPrior history of lung disease is noted including COPD, severe restrictive lung disease, former smoker, severe HUGO
Echocardiogram-11/03/2025-EF 55-60%, no significant valvular abnormalities.
Reviewed with nursing
Dr. Rivera updated daughter at the bedside 11/04/2025-explained tenuous and significantly compromised respiratory status, potential for pleural fluid reaccumulation
He is currently DNR, Dr. Finney verified the status with patient and his family
If he does not clinically improve, they are all in agreement that he would want to be made comfortable
Diagnostic Data
Chest X- Ray:11/02/25- Large partially loculated right pleural effusion with associated atelectasis and/or pneumonia, likely similar to prior CT.
CT Scan: CHEST 10/21/25- There is an increased moderate, loculated right-sided pleural effusion with adjacent opacities within the posterior lateral right lung which may represent atelectasis although pneumonia is possible.
There is opacification of the proximal right lower lobe bronchus which may represent mucous plugging although a mass is possible. Consider bronchoscopy for further evaluation.
There is a mildly displaced sternal body fracture. Additionally there is a compression deformity of the T8 vertebral body. These are new from imported CT in 2023 although similar appearance to recent prior CT.
07/07/25- Overall low lung volumes with some interstitial changes, many of which may be chronic. Irregular lobulated ill-defined 'consolidation' in the lower lobe of the right lung which although could represent atelectasis and/or pneumonia,
malignancy cannot be excluded. Are there prior outside studies for comparison? If not, consider PET scan with dual point imaging.
.
Subjective Data
-
Date of Service:
Date of Service: November 05, 2025
Chief Complaint: Pulmonary Follow Up and Dyspnea Follow Up
Subjective:
[place] better after thoracentesis, FiO2 was able to be weaned of Riggins's, less somnolent, no chest pain, difficult is mobilizing secretions, no abdominal pain
Review of Systems
General: Other ( per HPI)
Objective Data
Data Reviewed
Vital Signs / I&O:
Vital Signs
Temp Pulse Resp BP Pulse Ox
98.2 F 66 18 117/75 97
11/05/25 07:30 11/05/25 07:38 11/05/25 07:38 11/05/25 06:00 11/05/25 07:38
Intake and Output
11/04/25 11/05/25 11/06/25
06:59 06:59 06:59
Intake Total 810 / 810 300 / 300
Output Total 1125 / 1125 730 / 730
Balance -1125 / -1125 80 / 80 300 / 300
SaO2: 97
Nasal Cannula flow liters per minute: 4
Physical Exam
General: Respiratory Distress (n) and Comfortable
HEENT: Normocephalic and Anicteric
Cardiovascular: Regular Rhythm
Respiratory: Clear ( diminished breath sounds at the right greater than left base), Wheeze (n), Crackles (n), Rhonchi, Non-Labored Respirations, Accessory Resp Muscle Use (n) and Stridor
GI: Soft, Non Distended and Non Tender
Neurology: Awake and Alert
Skin: Warm, Good Color, Cyanosis (n), Jaundice (n) and Rash (n)
Labs/Micro/Reports
Lab Data
11/05/25 05:18
11/05/25 05:18
Microbiology
11/03/25 13:08 Pleural Fluid Body Fluid Culture - Preliminary
No Growth After 48 Hours
11/03/25 13:08 Pleural Fluid Gram Stain - Preliminary
11/02/25 13:49 Blood/Venous Blood Culture - Preliminary
No Growth in 48 hours- Final report to follow
11/02/25 13:43 Blood/Venous Blood Culture - Preliminary
No Growth in 48 hours- Final report to follow
11/03/25 08:15 Nose Nasal Screen MRSA (PCR) - Final
Staph aureus MRSA
11/02/25 12:46 Nasal Swab Influenza Types A & B ([facility]) - Final
Negative for Influenza A & B, NAAT
Negative results must be combined with clinical observations
and patient history.
Nucleic Acid Amplification test (NAAT)performed on the
[employer] platform.
--- NOTE | 2025-11-05 13:22 | CON.NEURO4 ---
Addendum entered and electronically signed by David Shaw MD 11/05/25 17:59:
The patient was seen and examined on 11/05/2025 along with the nurse practitioner Temi Luther. I agree with the nurse practitioner's assessment and management plan. I have personally performed the medical decision making of this encounter and
my assessment and management plan is as given below.
The patient is an 85-year-old male who presented to the hospital on 11/02/2025 with report of worsening dyspnea and hypoxia. Chest x-ray was suggestive of a large right pleural effusion with atelectasis vs pneumonia and patient underwent a R
thoracentesis on 11/03/25. The patient is on Keppra 500 mg twice a day at home for 'shaky limb movements' as per history provided by the family and according to the family an EEG was done that showed partial seizure activity associated with these
movements. The patient was seen by a neurologist who started the patient on Keppra 500 mg twice a day with relief of these 'shaky limb movements'. Later, patient's dose of Keppra was increased and he was started on 750 mg at night and he was kept
on 500 mg in the morning. Today in the morning the nursing staff, the patient and his spouse report that he had ' shaky movements', which were severe, however he stayed awake during the episode and he did not have any tongue biting or bowel/bladder
incontinence. EEG was done at bedside that showed intermittent left hemispheric sharp waves. The patient did not have any abnormal movements when he was evaluated by the neurology team.
Neurologic examination: The patient is alert and oriented x 3, speech is clear, the cranial nerves II to XII are grossly intact, the patient has antigravity strength in all 4 extremities, the sensations were grossly intact and he did not have any
limb ataxia.
The patient likely had a partial seizure activity in the setting of metabolic disturbances.
The plan is to increase the dose of Keppra to 750 mg twice a day.
Seizure precautions to be taken as per protocol including no driving for 6 months and reporting to the [employer].
Original Note:
Consultation - Neurology 4
-
CONSULTING PHYSICIAN: David Shaw MD
REFERRING PHYSICIAN: Hospitalists/Dr. Srinivasan
DICTATED BY: BRANDON Herndon
DATE/TIME OF REQUEST: 11/05/25
DATE/TIME OF CONSULTATION: 11/05/25
Reason for Consultation: Abnormal body movements
History of Present Illness:
This is an 85-year-old male who has presented to the hospital on 11/02/25 with report of worsening dyspnea and hypoxia. Chest xray is suggestive of a large R pleural effusion with atelectasis vs pneumonia and patient underwent a R thoracentesis on
11/03/25. Patient and his family at bedside report that he has a two year history of shaky limb movements. He is followed as an outpatient by Neurology Dr. Chelsie Aviles at [facility] and they report that about six months ago he had an EEG that
demonstrated partial seizure activity associated with these movements. He was started on Keppra 500mg twice a day initially with relief of his shaky movements. Several months later the movements returned again and his dose was increased to 500mg
AM/750mg PM which improved his symptoms again. This morning (11/05/25), nursing staff, the patient, and his spouse report that his shaky movements returned and were severe. The patient was awake the whole time and did not have any tongue biting or
bowel/bladder incontinence which they report is typically for these events. EEG at bedside demonstrates intermittent left frontal lobe sharp waves, no captured seizure. At the time of our evaluation there are no abnormal movements noted.
Past Medical History: Partial seizure disorder, COPD requiring 4L O2 NC and bipap at , BPH, HLD, neuropathy, chronic pain syndrome, RLS, anxiety, depression, back/neck injury
Surgical History: Morphine pump implant, C5-C6 and C6-C-7 fusion, L3-S1 and L4-L5 fusion, cardiac catheterization
Family History: Reviewed and noncontributory.
Social History: Former smoker. Denies alcohol and illicit drug use.
Allergies: Percocet/darvocet.
Home Medications: See below.
Review of Symptoms:
Patient denies any fever, headache, chest pain, shortness of breath, GI or symptoms.
�Per the HPI.�All systems are reviewed negative except above.
Physical Exam:
The patient is afebrile, abdomen is nondistended, breathing mildly labored on oxygen via nasal cannula, skin is warm and dry, no edema.
Neurologic Examination:
The patient is awake, alert and oriented x 3. He is able to follow commands and answer questions appropriately. There is no aphasia. Speech sounds 'nasally.' On cranial nerve assessment, pupils are 3 mm bilateral, round and reactive to light and
accommodation. Visual morales are full. Extraocular movements are intact. Face is symmetrical. Hearing is intact bilaterally to normal conversation volume. Tongue palate and uvula are midline. Sternocleidomastoid strengths are full bilaterally. Motor
strengths are 4/5 bilateral upper and lower extremities on medical research Benson scale. There is no drift or involuntary movement noted. There was no extinction noted on double simultaneous stimulation. Coordination is intact by finger to nose
bilaterally.
Lab Results: See below.
Neuro Imaging:
1. EEG 11/05/25: final read pending, per Dr. Shaw, intermittent left frontal lobe sharp waves.
Differentials for the patient's presentation include:
1. Abnormal limb shaking without loss of consciousness. Etiology of symptoms is possibly partial seizure activity in the set of metabolic disturbances given left frontal sharp waves noted on EEG.
Patient has the following risk factors for their symptoms: Partial seizure disorder, metabolic disturbances
Recommendations:
-Provide Keppra 250mg PO x1 now. Increase home Keppra 500mg AM/750mg PM to 750mg twice a day.
-Check at Keppra level at 0700 on 11/06/25 one hour prior to his morning dose of Keppra.
-Will follow. Patient should follow-up outpatient with his usual Neurologist.
Discussed patient care with: Dr. Shaw, the patient, patient's family
Vital Signs and Labs
-
Vital Signs and Labs:
Vital Signs
Temp Pulse Resp BP Pulse Ox
98.0 F 67 21 112/66 97
11/05/25 11:03 11/05/25 12:01 11/05/25 12:01 11/05/25 12:01 11/05/25 12:10
Lab Results
11/05/25 05:18
11/05/25 05:18
PT 12.9 Sec (11.4-14.6) 11/02/25 12:42
INR 0.96 11/02/25 12:42
APTT 29.2 Sec (23.4-35.0) 11/02/25 12:42
Sodium 140 mmol/L (135-145) 11/05/25 05:18
Potassium 4.4 mmol/L (3.5-5.1) 11/05/25 05:18
BUN 49 mg/dl (9-20) H 11/05/25 05:18
Glucose 109 mg/dl (70-99) H 11/05/25 05:18
Calcium 8.8 mg/dl (8.4-10.2) 11/05/25 05:18
Phosphorus 3.0 mg/dl (2.5-4.5) 11/05/25 05:18
Iqd-D-Cxrakipmbsc Pept 557 pg/ml 11/02/25 12:42
Medications
-
Active Medications
Generic Name Dose Route Start Last Admin
Trade Name Freq PRN Reason Stop Dose Admin
Acetaminophen 650 mg 11/02/25 17:01
Acetaminophen 325 Mg Tablet PO 11/30/25 17:00
Q4HPRN PRN
mild pain/YATES/temp> 100.4F
Acetaminophen 650 mg 11/02/25 17:01
Acetaminophen 650 Mg Rectal Suppository RECTAL 11/30/25 17:00
Q4HPRN PRN
mild pain/YATES/temp> 100.4F
Albuterol/Ipratropium 3 ml 11/02/25 17:01 11/05/25 11:48
Ipratropium 0.5/Albuterol 3 Mg (3 Ml Ampul) INH 3 ml
R QID MAKEDA Administration
Protocol
Albuterol/Ipratropium 3 ml 11/02/25 17:01
Ipratropium 0.5/Albuterol 3 Mg (3 Ml Ampul) INH
R Q4HPRN PRN
shortness of breath
Protocol
Apixaban 2.5 mg 11/05/25 08:15 11/05/25 08:53
Apixaban (Eliquis) 2.5 Mg Tablet PO 12/03/25 08:14 2.5 mg
BID MAKEDA Administration
Atorvastatin Calcium 10 mg 11/02/25 18:00 11/04/25 18:33
Atorvastatin (Lipitor) 10 Mg Tablet PO 11/30/25 17:59 10 mg
QPM MAKEDA Administration
Benzonatate 200 mg 11/02/25 17:40
Benzonatate 100 Mg Capsule PO 11/30/25 17:39
TIDPRN PRN
COUGH
Bisacodyl 10 mg 11/02/25 17:01
Bisacodyl 10 Mg Rectal Suppository RECTAL 11/30/25 17:00
[id number] PRN
constipation
Budesonide 0.5 mg 11/02/25 20:00 11/05/25 07:35
Budesonide (Pulmicort Respules) 0.5 Mg/2 Ml INH 0.5 mg
R BID MAKEDA Administration
Protocol
Calamine 0 ml 11/04/25 10:05
Calamine Lotion 120 Ml Bottle (6 Oz) TOPICAL 12/02/25 10:04
TIDPRN PRN
itching
Escitalopram Oxalate 10 mg 11/02/25 18:00 11/04/25 18:33
Escitalopram 10 Mg Tablet PO 11/30/25 17:59 10 mg
QPM AMKEDA Administration
Finasteride 5 mg 11/02/25 18:00 11/04/25 18:32
Finasteride 5 Mg Tablet PO 11/30/25 17:59 5 mg
QPM MAKEDA Administration
Fluorometholone 1 drop 11/02/25 20:00 11/05/25 08:55
Fluorometholone 0.1% (Ophthalmic Suspension) 5 Ml Bottle LEFT EYE 11/30/25 19:59 1 drop
BID MAKEDA Administration
Furosemide 20 mg 11/03/25 08:00 11/04/25 11:13
Furosemide 20 Mg Tablet PO 12/01/25 07:59 20 mg
On Hold: 11/05/25 07:51 DAILY MAKEDA Administration
Guaifenesin 1,200 mg 11/02/25 20:00 11/05/25 08:50
Guaifenesin 600 Mg Extended Release Tablet PO 11/30/25 19:59 1,200 mg
Q12 MAKEDA Administration
Vancomycin HCl 1 each/ Device 0 mls @ 0 mls/hr 11/04/25 09:15
IV
PER PROTOCOL MAKEDA
Protocol
As Directed
Piperacillin Sod/Tazobactam Sod 2.25 grams in 50 mls @ 100 mls/hr 11/05/25 12:00 11/05/25 13:03
Zosyn IV 50 mls
Q6 MAKEDA Administration
Levetiracetam 500 mg 11/03/25 08:00 11/05/25 08:50
Levetiracetam 500 Mg Regular Release Tablet PO 12/01/25 07:59 500 mg
DAILY MAKEDA Administration
Levetiracetam 750 mg 11/02/25 18:00 11/04/25 18:32
Levetiracetam 250 Mg Regular Release Tablet PO 11/30/25 17:59 750 mg
QPM MAKEDA Administration
Methylprednisolone Sodium Succinate 40 mg 11/03/25 01:00 11/05/25 13:02
Methylprednisolone Pf 40 Mg/Ml Vial IV 12/01/25 00:59 40 mg
Q12H MAKEDA Administration
Metoprolol Tartrate 25 mg 11/02/25 20:00 11/05/25 08:54
Metoprolol 25 Mg Regular Release Tablet PO 11/30/25 19:59 25 mg
BID MAKEDA Administration
Morphine Sulfate 2 mg 11/02/25 17:01
Morphine 2 Mg/Ml Syringe IV 11/16/25 17:00
Q4HPRN PRN
severe breakthrough pain
Morphine Sulfate 15 mg 11/04/25 13:45
Morphine 15 Mg Immediate Release Tablet PO 11/18/25 13:42
QIDPRN PRN
moderate severe pain
Naloxegol 25 mg 11/03/25 08:00 11/05/25 08:54
Naloxegol Oxalate (Movantik) 25 Mg Tablet PO 12/01/25 07:59 25 mg
DAILY MAKEDA Administration
Non-Formulary Item 1 0 mg 11/04/25 11:00 11/04/25 11:16
Unit (Dupilumab [ SC 12/02/25 10:59 300 mg
Dupixent Pen] 300 Mg Q2W MAKEDA Administration
Sc [id number])
Ondansetron HCl 4 mg 11/02/25 17:01
Ondansetron 4 Mg/2 Ml Vial IV 11/30/25 17:00
Q6HPRN PRN
nausea and vomiting
Pantoprazole Sodium 40 mg 11/03/25 08:00 11/05/25 08:53
Pantoprazole 40 Mg Delayed Release Tablet PO 12/01/25 07:59 40 mg
DAILY MAKEDA Administration
Polyethylene Glycol 17 grams 11/02/25 17:01
Polyethylene Glycol Powder 17 Grams Packet PO 11/30/25 17:00
DAILYPRN PRN
constipation
Pregabalin 50 mg 11/03/25 08:00 11/05/25 08:52
Pregabalin 50 Mg Capsule PO 12/01/25 07:59 50 mg
DAILY MAKEDA Administration
Pregabalin 100 mg 11/02/25 22:00 11/04/25 19:41
Pregabalin 50 Mg Capsule PO 11/30/25 21:59 100 mg
HS MAKEDA Administration
Senna/Docusate Sodium 1 tablet 11/02/25 17:01
Docusate W/Senna (Xenia-Colace) Tablet PO 11/30/25 17:00
BIDPRN PRN
constipation
Sodium Chloride 1 vial 11/02/25 20:00 11/05/25 07:35
Sodium Chloride 3% For Inhalation 4 Ml Vial INH 1 vial
R BID MAKEDA Administration
Sodium Chloride 0 flush 11/02/25 18:00
Sodium Chloride 0.9% (Flush) Syringe IV 11/30/25 17:59
PER PROTOCOL MAKEDA
Tamsulosin HCl 0.4 mg 11/02/25 18:00 11/04/25 18:32
Tamsulosin 0.4 Mg Capsule PO 11/30/25 17:59 0.4 mg
QPM MAKEDA Administration
Timolol Maleate 1 drop 11/02/25 20:00 11/05/25 08:55
Timolol 0.5% (Ophthalmic Solution) Bottle LEFT EYE 11/30/25 19:59 1 drop
BID MAKEDA Administration
Home Medications
�Medication �Instructions �Recorded
Patient Own Morphine Pump 1 dose SC DIRECTED Pain 11/02/25
amoxicillin 875 mg-potassium 1 tab PO BID Infection 11/02/25
clavulanate 125 mg tablet
aspirin 81 mg tablet,delayed 81 mg PO DAILY Blood Clot 11/02/25
release Prevention/Tx
azithromycin 250 mg tablet 250 mg PO MOTUWETHFR COPD PPX 11/02/25
benzonatate 200 mg capsule 200 mg PO TIDPRN PRN COUGH 11/02/25
budesonide 0.5 mg/2 mL suspension 0.5 mg inhalation R BID 11/02/25
for nebulization Lung/Breathing Issues
calcium 500 mg 1 tab PO DAILY Supplement 11/02/25
(carb,gluconate)-magnesium 250 mg
(gluc,oxide) tablet
cholecalciferol (vitamin D3) 25 25 mcg PO DAILY Supplement 11/02/25
mcg (1,000 unit) tablet (Vitamin
D3)
doxycycline hyclate 100 mg capsule 100 mg PO BID Infection 11/02/25
dupilumab 300 mg/2 mL subcutaneous 300 mg SC Q2W Lung/Breathing Issues 11/02/25
pen injector (Dupixent)
escitalopram oxalate 10 mg tablet 10 mg PO QPM Mental Health/Anxiety 11/02/25
(Lexapro)
ferrous sulfate 325 mg (65 mg 325 mg PO DAILY Supplement 11/02/25
iron) tablet
finasteride 5 mg tablet 5 mg PO QPM Urinary Issue 11/02/25
fluorometholone acetate 0.1 % eye 1 drp LEFT EYE BID Eye Condition 11/02/25
drops,suspension
furosemide 20 mg tablet (Lasix) 20 mg PO DAILY Fluid 11/02/25
Retention/Swelling
glucosamine 375 ld-kkmfrymsg-upc 1 tab PO DAILY Supplement 11/02/25
no1 500 mg-C 15 mg-elisa 0.5 mg
tablet
(Ksfdrksbznw-Zhivmfwvmdi-FDQ
Complex)
ipratropium 0.5 mg-albuterol 3 mg 3 ml inhalation R QID 11/02/25
(2.5 mg base)/3 mL nebulization Lung/Breathing Issues
soln
ipratropium bromide 0.02 % 0.5 mg inhalation R BID 11/02/25
solution for inhalation Lung/Breathing Issues
levetiracetam 500 mg tablet 500 mg PO DAILY Seizures 11/02/25
(Keppra)
levetiracetam 750 mg tablet 750 mg PO QPM Seizures 11/02/25
(Keppra)
lovastatin 40 mg tablet 40 mg PO QPM High Cholesterol 11/02/25
lysine 1,000 mg tablet 1,000 mg PO DAILY Supplement 11/02/25
metoprolol tartrate 25 mg tablet 25 mg PO BID Heart 11/02/25
Disease/Condition
morphine 15 mg immediate release 15 mg PO QID Pain 11/02/25
tablet
naloxegol 25 mg tablet (Movantik) 25 mg PO DAILY Gastrointestinal 11/02/25
Issue
omeprazole 40 mg capsule,delayed 40 mg PO DAILY Gastrointestinal 11/02/25
release Issue
pregabalin 50 mg capsule (Lyrica) 50 mg PO DAILY Pain 11/02/25
pregabalin 50 mg capsule (Lyrica) 100 mg PO HS Pain 11/02/25
tamsulosin 0.4 mg capsule 0.4 mg PO QPM Urinary Issue 11/02/25
therapeutic multivitamin 1 tab PO DAILY Supplement 11/02/25
timolol maleate 0.5 % eye drops 1 drp LEFT EYE BID Eye Condition 11/02/25
[2025-11-05] MEDS: KEPPRA 250 MG PO (14:33)
[2025-11-05] MEDS: VANCOCIN 150 IV (14:33)
--- NOTE | 2025-11-05 15:31 | W.PN.UPDATE ---
Update Note
Progress Note Update
Pathology contacting Dr. Rivera.
Pleural fluid from 11/03/25, positive for malignant cells-small cell carcinoma
--- NOTE | 2025-11-05 15:34 | PTCARENOTE ---
Patient worked with PT today. OOB to chair. Heavy assist x2 to stand and pivot. Patient with hand tremors and jerky movements. Neurology consulted today. Orders obtained for EEG at bedside. Extra dose of keppra today. Patient much more alert
today. Appetite good. Patient having difficulty feeding himself due to hand tremors. Aspiration precautions.
[2025-11-05 17:38] LABS: Ferritin 201.0 ng/ml (17.9-464.0)
[2025-11-05 18:09] LABS: Folate > 20.0 ng/ml (2.76-20); Vitamin B12 789 pg/ml (239-931)
[2025-11-05] MEDS: LIPITOR 10 MG PO (19:52)
[2025-11-05] MEDS: LEXAPRO 10 MG PO (19:52)
[2025-11-05] MEDS: PROSCAR 5 MG PO (19:52)
[2025-11-05] MEDS: FLOMAX 0.4 MG PO (19:53)
[2025-11-05] MEDS: KEPPRA 750 MG PO (19:57)
[2025-11-05] MEDS: LYRICA 100 MG PO (21:45)
--- NOTE | 2025-11-05 21:55 | EEG.RPT ---
Electroencephalogram Report
Recording
Date of EE11/05/25
Type of EEG: Routine
Length of EEG recordin minutes
Done with Video Recording: Yes
Patient Status: Inpatient
Recording Conditions: Awake and Drowsy
Hyperventilation Performed: No
Photic Stimulation Performed: Yes
Report
Clinical methods:
A 21-channel digitized electroencephalogram was performed. The 10�20 International system of electrode placement was used. ECG was monitored. Video was recorded.
EEG Interpretation:
The posterior dominant rhythm was in the theta range.
The background rhythm did not show a significant asymmetry of frequency and amplitude between the hemispheres.
Drowsiness was seen.
Hyperventilation was not performed.
Photic stimulation was performed.
There was presence of intermittent sharp waves originating primarily from the left hemispheric leads which became more prominent during photic stimulation and spread to the right hemispheric leads.
Clinical correlation:
This is an abnormal routine awake and drowsy state EEG due to the presence of intermittent sharp waves originating primarily from the left hemispheric leads which became more prominent during photic stimulation and spread to the right hemispheric
leads. This EEG shows presence of cortical irritation primarily in the left hemisphere. Clinical correlation is recommended.
--- NOTE | 2025-11-05 22:25 | PTCARENOTE ---
Pt c/o discomfort whilst wearing bipap mask, stating he wants it off and its not like his mask at home. Pt educated that this is the form of mask we have presently and importance of wearing mask HS explained. Pt agreed to attempting to wear mask at
this time.
--- NOTE | 2025-11-05 22:40 | PTCARENOTE ---
Pt refusing to wear mask to sleep at this time. education provided again but pt not agreeable. pt wearing 4L NC. pt encouraged to have family bring mask from home that he is more comfortable with.
[2025-11-06] VITALS (15 sets, daily range): BP systolic 99–167; BP diastolic 55–94; PULSE 2–88; BMI 34.2
[2025-11-06] MEDS: SOLU-MEDROL PF 40 MG IV ×2 (02:34→12:41)
[2025-11-06] MEDS: ZOSYN 50 IV ×4 (02:34→17:34)
[2025-11-06 06:39] LABS: Hematocrit 37.7 % (39.0-52.0); Hemoglobin 11.4 g/dL (13.0-18.0); Mean Corp Hgb Conc. 30.2 g/dL (33.0-37.0); Mean Corpuscular Volume 101.3 fL (80.0-94.0); Platelet Count 176 10^3/uL (130-400); Red Cell Dist. Width 13.5 % (11.5-14.5)
[2025-11-06 06:59] LABS: Blood Urea Nitrogen 38 mg/dl (9-20); Calcium 8.5 mg/dl (8.4-10.2); Chloride 96 mmol/L (98-107); Estimated Creatinine Clearance 40 ml/min; Glucose 128 mg/dl (70-99); LDH 445 U/L (120-246); Magnesium 2.6 mg/dl (1.6-2.3); Potassium 4.3 mmol/L (3.5-5.1); Sodium 138 mmol/L (135-145); eGFR 58.89
[2025-11-06 07:10] LABS: Carbon Dioxide 36 mmol/L (22-30)
[2025-11-06] MEDS: PULMICORT 0.5 MG INH ×2 (07:21→19:33)
[2025-11-06] MEDS: DUONEB 3 ML INH ×4 (07:21→19:33)
[2025-11-06] MEDS: SODIUM CHLORIDE 3% FOR INHALATION 1 VIAL INH ×2 (07:21→19:33)
--- NOTE | 2025-11-06 08:18 | PHA.VAN.FU ---
Vancomycin Assessment / Plan
- Assessment
Renal Function: SCR Decreasing
WBC's are: Trending Down
In the past 24 hrs, patient has been: Afebrile
Concomitant Antimicrobials: piperacillin/tazobactam
- Assessment - Therapeutic Drug Monitoring
Random Level: 14 - drawn ~15.5H after previous dose of 750mg
- Dosing Plan
Dosing by Level: Re-dose today (Vanc 1000mg)
- Monitoring Plan
Random Level: 11/07 06
- Follow Up
Pharmacy will continue to follow.
Vancomycin Follow UP
- -
Patient Age: 85
Patient Sex: Male
Vancomycin Day #: 5
Indication: Pulmonary/Respiratory
Requesting Provider: Dr. Vieira / Dr. Johnson
Pertinent Antimicrobial Allergies:
No pertinent antibiotic allergies
Height / Weight:
Height 5 ft 1 in
Actual Weight 82.129 kg
Pertinent Past Medical History: BMI: 34.2, COPD (home O2)
- Vital Signs / Lab Results
Temp Pulse Resp BP Pulse Ox
97.5 F 68 20 119/62 98
11/06/25 03:13 11/06/25 07:23 11/06/25 07:23 11/06/25 06:25 11/06/25 07:23
Lab Results - Hematology
11/03/25 11/04/25 11/05/25
20:34 05:59 05:18
WBC 17.3 H 17.0 H 13.4 H
11/06/25
06:08
WBC 11.2 H
Lab Results - Chemistry
11/03/25 11/04/25 11/05/25
20:34 05:59 05:18
BUN 38 H 42 H 49 H
Creatinine 1.2 1.3 1.5 H
Estimated Creat Clear 40 37 32
11/06/25
06:08
BUN 38 H
Creatinine 1.2
Estimated Creat Clear 40
Microbiology Results
11/02/25 13:49 Blood Culture - Preliminary
Blood/Venous No Growth in 72 hours- Final report to follow
11/02/25 13:43 Blood Culture - Preliminary
Blood/Venous No Growth in 72 hours- Final report to follow
11/03/25 13:08 Body Fluid Culture - Preliminary
Pleural Fluid No Growth After 48 Hours
Gram Stain - Preliminary
Therapeutic Drug Monitoring
Random Vancomycin 14.0 ug/ml 11/06/25 06:08
[2025-11-06] MEDS: VANCOCIN 200 IV (09:11)
[2025-11-06] MEDS: PROTONIX 40 MG PO (09:17)
[2025-11-06] MEDS: KEPPRA 750 MG PO ×2 (09:17→22:04)
[2025-11-06] MEDS: MUCINEX 1200 MG PO ×2 (09:18→22:04)
[2025-11-06] MEDS: ELIQUIS 2.5 MG PO (09:18)
[2025-11-06] MEDS: LYRICA 50 MG PO (09:18)
[2025-11-06] MEDS: MOVANTIK 25 MG PO (09:18)
[2025-11-06] MEDS: LOPRESSOR 25 MG PO ×2 (09:18→22:03)
[2025-11-06] MEDS: TIMOPTIC 0.5% OPHTHALMIC SOLUTION 1 DROP LEFT EYE ×2 (09:19→22:07)
[2025-11-06] MEDS: FML 0.1% OPHTHALMIC SUSPENSION 1 DROP LEFT EYE ×2 (09:37→22:07)
--- NOTE | 2025-11-06 10:37 | W.PN.PUL.V3 ---
Today's Communication / Plan
-
Wean oxygen
Monitor for pleural fluid reaccumulation
Consider PleurX catheter if pleural fluid reaccumulates with underlying malignancy
Oncological evaluation-doubt patient performance status is such that he would tolerate any significant treatment
Palliation likely the best option
Assessment
-
Patient is an 85-year-old male with previous history of chronic hypoxic respiratory failure, severe HUGO on BiPAP, COPD with severe restrictive lung defect presenting with worsening shortness of breath from home. Patient is noted to use 4 L nasal
cannula chronically at home. He was noted by his to have worsening shortness of breath. She had tried BiPAP temporarily before coming to the ER which was not helpful. He has prior CT imaging demonstrating loculated right pleural effusion.
He is also maintained on a morphine pump. He is notably DNR, confirmed by patient and family that they would not want aggressive measures. He is admitted to IMU for acute on chronic hypoxic respiratory failure. We are consulted for evaluation.
Acute on chronic hypoxic respiratory failure
Leukocytosis, mild
Right sided loculated pleural effusion, chronic
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
Conditions present prior to admission:
Severe COPD, follows with AF
6MWT performed 10/03/25 showing he needs 4L/min with rest and activity
Full PFTs from 05/02/2025 showed a severe restrictive lung defect
Severe HUGO, RDI of 98 in January 2008, and wears auto-BiPAP [id number] with PS: 2-7cmH2O, bled with 4L/min
Previously managed at [facility], transitioned care to in the past year
Former tobacco smoker, quit in [id number], smoked 0.5PPD x 20 years
RLD
Restless leg syndrome
Back injury x 8 surgeries, now on morphine pain pump/implanted 03/22/2004
several back surgeries including fusion of C5 + C6 and C6+C7, L3 +S1, L4+L5 [id number]
High cholesterol
Polyneuropathy
Hypertension
Seizures
Ulcers/Gastritis
Hx Fall
Depression/Anxiety
Heart catheterization 01/17/2008, 04/24/14
Plan
Prior history of lung disease is noted including COPD, severe restrictive lung disease, former smoker, severe HUGO
Prior PFTs demonstrating severe restrictive lung defect
Respiratory status remains tenuous-somewhat improved after thoracentesis
Continues up about oxygen--4 L-97% saturation
. Note:ABG 11/03/25--75/81/7.33
BiPAP continues as tolerated.
Nebulizers-DuoNeb's and budesonide
Steroids-no change-Currently on Solu-Medrol 40 mg IV every 12 hours
Mucolytic
Aspiration precautions.
Mucus clearing devices..
CT chest06/2025-minimal right pleural fluid.
CT chest 09/2025-moderate loculated pleural fluid with atelectasis
Chest x-ray 11/02/25 with increased pleural fluid on the right and ultrasound noted-large right pleural fluid
Thoracentesis right side 11/03/25--1250 mL serosanguineous pleural fluid, pH 743, WBC 870, total protein 4.5, LDH 359-exudate, cultures negative, cytology-positive for small cell carcinoma
Dr. 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
Chest x-ray 11/03/2025-no pneumothorax, moderate probable loculated right pleural effusion improved
Dr. Rivera spoke to patient-told him about his diagnosis of cancer in the pleural fluid-explained there are multiple treatments including chemotherapy-suspect he would not tolerate it and he said he has very poor performance status-he will think
about it and discuss with his family
Dr. Rivera also spoke to hospitalist
Oncology was consulted for an opinion-pending
Told patient pleural fluid reaccumulation likely-at that point PleurX catheter could be considered unless patient moves towards hospice care
Cultures reviewed.
MRSA screen positive.
Blood cultures no growth.
Influenza negative
Empiric antibiotic-vancomycin and Zosyn
Diuresis continues as tolerated
Monitor weight, intake, output, renal function and lower extremity edemaPrior history of lung disease is noted including COPD, severe restrictive lung disease, former smoker, severe HUGO
Echocardiogram-11/03/2025-EF 55-60%, no significant valvular abnormalities.
Reviewed with nursing
Dr. Rivera updated daughter at the bedside 11/04/2025-explained tenuous and significantly compromised respiratory status, potential for pleural fluid reaccumulation
He is currently DNR, Dr. Finney verified the status with patient and his family
If he does not clinically improve, they are all in agreement that he would want to be made comfortable
Diagnostic Data
Chest X- Ray:11/02/25- Large partially loculated right pleural effusion with associated atelectasis and/or pneumonia, likely similar to prior CT.
CT Scan: CHEST 10/21/25- There is an increased moderate, loculated right-sided pleural effusion with adjacent opacities within the posterior lateral right lung which may represent atelectasis although pneumonia is possible.
There is opacification of the proximal right lower lobe bronchus which may represent mucous plugging although a mass is possible. Consider bronchoscopy for further evaluation.
There is a mildly displaced sternal body fracture. Additionally there is a compression deformity of the T8 vertebral body. These are new from imported CT in 2023 although similar appearance to recent prior CT.
07/07/25- Overall low lung volumes with some interstitial changes, many of which may be chronic. Irregular lobulated ill-defined 'consolidation' in the lower lobe of the right lung which although could represent atelectasis and/or pneumonia,
malignancy cannot be excluded. Are there prior outside studies for comparison? If not, consider PET scan with dual point imaging.
.
Subjective Data
-
Date of Service:
Date of Service: November 06, 2025
Chief Complaint: Pulmonary Follow Up and Dyspnea Follow Up
Subjective:
Complains of some increasing shortness of breath, no chest pain, productive cough, no abdominal pain
Review of Systems
General: Other (- per HPI)
Objective Data
Data Reviewed
Vital Signs / I&O:
Vital Signs
Temp Pulse Resp BP Pulse Ox
97.5 F 68 14 145/94 96
11/06/25 03:13 11/06/25 10:30 11/06/25 10:30 11/06/25 10:00 11/06/25 10:11
Intake and Output
11/05/25 11/06/25 11/07/25
06:59 06:59 06:59
Intake Total 810 / 810 820 / 820
Output Total 730 / 730 1870 / 1870
Balance 80 / 80 -1050 / -1050
SaO2: 96
Nasal Cannula flow liters per minute: 6
Physical Exam
General: Respiratory Distress (n) and Comfortable
HEENT: Normocephalic and Anicteric
Cardiovascular: Regular Rhythm
Respiratory: Clear ( diminished breath sounds at the right greater than left base), Wheeze (n), Crackles (n), Rhonchi, Non-Labored Respirations, Accessory Resp Muscle Use (n) and Stridor
GI: Soft, Non Distended and Non Tender
Neurology: Awake and Alert
Skin: Warm, Good Color, Cyanosis (n), Jaundice (n) and Rash (n)
Labs/Micro/Reports
Lab Data
11/06/25 06:08
11/06/25 06:08
Microbiology
11/03/25 13:08 Pleural Fluid Body Fluid Culture - Final
No Growth After 72 Hours
11/03/25 13:08 Pleural Fluid Gram Stain - Final
11/02/25 13:49 Blood/Venous Blood Culture - Preliminary
No Growth in 72 hours- Final report to follow
11/02/25 13:43 Blood/Venous Blood Culture - Preliminary
No Growth in 72 hours- Final report to follow
11/03/25 08:15 Nose Nasal Screen MRSA (PCR) - Final
Staph aureus MRSA
--- NOTE | 2025-11-06 10:53 | W.PN.ID1 ---
Date of Service
Date of Service: November 06, 2025
Today's Communication
Continue antibiotics for today.
Assessment / Plan
Exudative Right Pleural Effusion
- Cytology positive for small cell carcinoma
Seizure disorder on Keppra
COPD on dupixent, HUGO, RLD
BUD - progressive
Recommendations:
- blood cultures x2 in progress
- 11/03 body fluid culture no growth at 72 hours
- MRSA nasal screen positive
- LDH on the serum ordered
- follow renal function - on home dose of lasix; dose adjust antibiotics PRN
- monitoring for pleural fluid reaccumulation
- on methylprednisolone 40 mg IV q12 started 11/03
- continue vancomycin and zosyn for now, follow cultures
Chief Complaint
-: Pneumonia (Empyema)
Subjective / Review of Systems
Patient remains on BiPAP at this time.
Review of Systems: No Fever
Vital Signs / Physical Exam
Vital Signs
Vital Signs
Temp Pulse Resp BP Pulse Ox
97.5 F 68 14 145/94 96
11/06/25 03:13 11/06/25 10:30 11/06/25 10:30 11/06/25 10:00 11/06/25 10:37
Physical Exam
Constitutional: Chronically Ill and Non-toxic
Cardiovascular: S1/S2; Negative S3/S4
Pulmonary: Coarse and Other (Mild/moderately labored. BiPAP in place.)
Gastrointestinal: Soft, Non Tender and Non Distended
Extremities: Edema; Negative Cyanosis or Erythema
Neurological: Awake
Psychological: Calm
Objective Data
Lab Data
Lab Results
11/06/25 06:08
11/06/25 06:08
PT 12.9 Sec (11.4-14.6) 11/02/25 12:42
INR 0.96 11/02/25 12:42
APTT 29.2 Sec (23.4-35.0) 11/02/25 12:42
Estimated Creat Clear 40 ml/min 11/06/25 06:08
Lactic Acid 1.1 mmol/L (0.7-2.0) 11/02/25 13:43
Total Bilirubin 0.3 mg/dl (0.2-1.3) 11/02/25 12:42
AST 136 U/L (17-59) H 11/02/25 12:42
ALT 42 U/L (0-50) 11/02/25 12:42
Alkaline Phosphatase 100 U/L (38-126) 11/02/25 12:42
Most recent labs reviewed.
Micro Results:
11/03/25 13:08 Body Fluid Culture - Final
Pleural Fluid No Growth After 72 Hours
Gram Stain - Final
11/02/25 13:49 Blood Culture - Preliminary
Blood/Venous No Growth in 72 hours- Final report to follow
11/02/25 13:43 Blood Culture - Preliminary
Blood/Venous No Growth in 72 hours- Final report to follow
11/03/25 08:15 Nasal Screen MRSA (PCR) - Final
Nose Staph aureus MRSA
11/02/25 12:46 Influenza Types A & B ([facility]) - Final
Nasal Swab Negative for Influenza A & B, NAAT
Negative results must be combined with clinical observations
and patient history.
Nucleic Acid Amplification test (NAAT)performed on the
[employer] platform.
Laboratory Tests
11/03/25
Pleural fluid 13:08
Fluid pH 7.43
Fluid WBC 870
Fluid Mononuclear Cell 91.6
Fl Polymorphonucl Cell 8.4
Fluid Glucose 119
Fluid Total Protein 4.5
Fluid LDH 359
--- NOTE | 2025-11-06 10:53 | PTOTSP ---
Speech Therapy Evaluation:
Pt with chronic risk factors of dysphagia including seizures, COPD (4LO2 baseline), restrictive lung disease, and former smoker, acutely compounded by current admission with respiratory failure, concern for current PNA, and pathology results of
pleural fluid that showed small cell lung CA. At bedside, mild oral impairments. No overt s/sx of aspiration across trials, however pt at increased risk given tenuous respiratory status. Per pt/, pt without dysphagia hx or prior PNAs.
Recommend:
1. Cautiously cont. regular solids and thin liquids
2. Medications in puree per pt preference
3. Strict aspiration precautions
4. Do not eat while SOB. Hold PO while on BiPAP
5. TINSEL MACHINE OPERATOR to follow to monitor tolerance of diet and determine if pt would benefit from instrumental assessment. Pt low threshold for instrumental assessment if worsening in chest imaging or respiratory status.
--- NOTE | 2025-11-06 11:04 | W.PN.HOSP.TC ---
Addendum entered and electronically signed by Ke Simon MD 11/07/25 08:17:
possible Sepsis due to pneumonia with organ dysfunction of acute om chronic hypoxic respiratory failure
Original Note:
Today's Communication/Plan
-
see a/p
Assessment / Plan
Assessment / Plan
Physical Exam
General: no acute distress, appears comfortable though on BIPAP
HEENT: NormoCephalic and Anicteric
Respiratory: Decreased Breath Sounds (RLL); No Wheezes
Cardiac: S1/S2 and Regular Rhythm
GI: Soft and Non Tender
Musculoskeletal: No Edema
Neuro: Lethargic but arousable, following commands, limited conversation on BIPAP as above
Psych: Calm
85M sz d/o restrictive lung dz COPD chronic home O2 4L HUGO BIPAP RLS Anxiety/depression here for Acute on Chronic Respiratory Failure likely 2/2 RLL pna and associate large pleural effusion.
Acute on chronic hypoxic respiratory failure
Acute RLL pneumonia
Hx of COPD
Hx of Severe restrictive lung disease
- baseline 4L NC, on BIPAP wean as tolerated
- recently placed on Augmentin + Doxy without improvement
- IMU admit
- MRSA screen +
- cont Vancomycin and Zosyn empirically
- follow culture results
- nebs scheduled and prn
- mucolytics, anti-tussives
- 3% saline
- chest US appreciated large Right pleural effusion
- consult Pulmonary appreciated
- IR eval appreciated s/p Thoracentesis 11/03 1250 cc removed
New Dx Small Cell Lung Ca noted in pleural fluid pathology studies
-discussed with patient and patient's Larisa
-Pulm oncology eval appreciated
New onset Aflutter overnight since spontaneously resolved
Cardio eval appreciated, Eliquis started for stroke risk reduction
BUD resolving
Cr trended up to 1.5, initial Cr 0.9 on admission
suspect pre-renal 2/2 AMS poor oral intake since improved
Possibly obstructive, patient intermittently required straight cath, Barney since placed
home Lasix briefly held since resumed w/ improvement kidney function
Monitor renal function
Hx of seizures
Noted Periodic Jerking Movements though AOx3
Concern for uncontrolled sz d/o
- EEG results appreciated
- Neuro eval appreciated home Keppra increased to 750 mg BID
HUGO on Nocturnal BIPAP
-cont home BIPAP prn/HS
RLS
Anxiety/Depression hx
- continue Lexapro
HLD - statin
hx of multiple back surgeries
hx of Demyelinating neuropathy
- pain pump continued
- continue morphine QIDprn mod severe pain, IV morphine prn severe breakthru pain.
- cont Movantik
- continue Lyrica
BPH
Acute Urinary Retention
- continue Finasteride, Flomax
Hx venous insufficiency
- continue oral Lasix
Hx of CAD
- aspirin/BB/Statin
DVT ppx: Eliquis
Code: DNR/DNI
Discussed with patient and patient's Larisa
I spent a total of 45 minutes with the patient or on the floor. More than 50% of this time involved counseling and coordination of care.
Anticipated Discharge: 24 - 48 hours
Subjective/Interval History
-
Date of Service: November 06, 2025
Sitting up comfortably in bed, appears relatively comfortable but dyspneic purse lipid breathing. AOx3 conversant coherent. Larisa present during evaluation.
Objective Data
-
Labs:
Laboratory Results
11/06/25
06:08
WBC 11.2 H
Hgb 11.4 L
Hct 37.7 L
Plt Count 176
Sodium 138
Potassium 4.3
Chloride 96 L
Carbon Dioxide 36 H
BUN 38 H
Creatinine 1.2
Glucose 128 H
Calcium 8.5
Vital Signs:
Vital Signs
Temp Pulse Resp BP Pulse Ox
97.5 F 68 14 145/94 96
11/06/25 03:13 11/06/25 10:30 11/06/25 10:30 11/06/25 10:00 11/06/25 10:37
I&O
11/05/25 11/06/25 11/07/25
06:59 06:59 06:59
Intake Total 810 / 810 820 / 820
Output Total 730 / 730 1870 / 1870
Balance 80 / 80 -1050 / -1050
--- NOTE | 2025-11-06 11:46 | CON.ONC ---
Consultation
-
Date Consultation Requested: 11/06/25
Date Consultation Performed: 11/06/25
Impression
Impression
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
Deconditioning
Pneumonia
COPD
Restrictive lung disease
Chronic pain on morphine pump
Seizures
Plan
Plan
Reviewed the general prognosis associated with advanced small cell lung carcinoma
Treatment options typically include systemic systemic [place] based chemotherapy in combination with PD-L1
Patient's current performance status would not support toxicities associated with systemic treatment
Patient and family understand that systemic therapy is palliative
Will consider continued focus on comfort possible PleurX catheter if pleural effusion recurs
Patient History
History of Present Illness
Patient is an 85-year-old male with previous history of chronic hypoxic respiratory failure, severe HUGO on BiPAP, COPD with severe restrictive lung defect who presented from home with increasing shortness of breath. He was accompanied today by his
and daughter to discuss the findings of recent pleural fluid cytology which revealed small cell lung carcinoma. He continues to to have a fairly significant oxygen requirement and his family reports that he has been essentially bedbound while
at home over the past 6 to 8 weeks. He is also maintained on a morphine pump. He is notably DNR, confirmed by patient and family that they would not want aggressive measures. Campbell was consult to review prognosis staging and therapeutic
options
Past-Medical/Surgical History
Past Medical History
Past Medical History: seizures, COPD on chronic home O2, HUGO on nocturnal BIPAP, RLS, Anxiety/Depression, HLD, hx of multiple back surgeries, restrictive lung disease, BPH
Past Surgical History:Spinal surgeries, cath, colonoscopy, cataracts
Social History
Tobacco: Former Smoker
Alcohol: None
Drug: None
Personal:
Living: With Family
Employment: Retired
Family History
Family History: Not pertinent
Patient Medication
�Medication �Instructions �Recorded �Confirmed �Last Taken �Type
Patient Own Morphine Pump 1 dose SC DIRECTED Pain 11/02/25 11/02/25 Unknown History
amoxicillin 875 mg-potassium 1 tab PO BID Infection 11/02/25 11/02/25 11/01/25 History
clavulanate 125 mg tablet
aspirin 81 mg tablet,delayed 81 mg PO DAILY Blood Clot 11/02/25 11/02/25 11/01/25 History
release Prevention/Tx
azithromycin 250 mg tablet 250 mg PO MOTUWETHFR COPD PPX 11/02/25 11/02/25 10/31/25 History
benzonatate 200 mg capsule 200 mg PO TIDPRN PRN COUGH 11/02/25 11/02/25 Unknown History
budesonide 0.5 mg/2 mL suspension 0.5 mg inhalation R BID 11/02/25 11/02/25 11/01/25 History
for nebulization Lung/Breathing Issues
calcium 500 mg 1 tab PO DAILY Supplement 11/02/25 11/02/25 11/01/25 History
(carb,gluconate)-magnesium 250 mg
(gluc,oxide) tablet
cholecalciferol (vitamin D3) 25 25 mcg PO DAILY Supplement 11/02/25 11/02/25 11/01/25 History
mcg (1,000 unit) tablet (Vitamin
D3)
doxycycline hyclate 100 mg capsule 100 mg PO BID Infection 11/02/25 11/02/25 11/01/25 History
dupilumab 300 mg/2 mL subcutaneous 300 mg SC Q2W Lung/Breathing Issues 11/02/25 11/04/25 Unknown History
pen injector (Dupixent)
escitalopram oxalate 10 mg tablet 10 mg PO QPM Mental Health/Anxiety 11/02/25 11/02/25 11/01/25 History
(Lexapro)
ferrous sulfate 325 mg (65 mg 325 mg PO DAILY Supplement 11/02/25 11/02/25 11/01/25 History
iron) tablet
finasteride 5 mg tablet 5 mg PO QPM Urinary Issue 11/02/25 11/02/25 11/01/25 History
fluorometholone acetate 0.1 % eye 1 drp LEFT EYE BID Eye Condition 11/02/25 11/02/25 11/01/25 History
drops,suspension
furosemide 20 mg tablet (Lasix) 20 mg PO DAILY Fluid 11/02/25 11/02/25 11/01/25 History
Retention/Swelling
glucosamine 375 [id number] 1 tab PO DAILY Supplement 11/02/25 11/02/25 11/01/25 History
no1 500 mg-C 15 mg-elisa 0.5 mg
tablet
([id number]
Complex)
ipratropium 0.5 mg-albuterol 3 mg 3 ml inhalation R QID 11/02/25 11/02/25 11/01/25 History
(2.5 mg base)/3 mL nebulization Lung/Breathing Issues
soln
ipratropium bromide 0.02 % 0.5 mg inhalation R BID 11/02/25 11/02/25 11/01/25 History
solution for inhalation Lung/Breathing Issues
levetiracetam 500 mg tablet 500 mg PO DAILY Seizures 11/02/25 11/02/25 11/02/25 History
(Keppra)
levetiracetam 750 mg tablet 750 mg PO QPM Seizures 11/02/25 11/02/25 11/01/25 History
(Keppra)
lovastatin 40 mg tablet 40 mg PO QPM High Cholesterol 11/02/25 11/02/25 11/01/25 History
lysine 1,000 mg tablet 1,000 mg PO DAILY Supplement 11/02/25 11/02/25 11/01/25 History
metoprolol tartrate 25 mg tablet 25 mg PO BID Heart 11/02/25 11/02/25 11/01/25 History
Disease/Condition
morphine 15 mg immediate release 15 mg PO QID Pain 11/02/25 11/02/25 11/01/25 History
tablet
naloxegol 25 mg tablet (Movantik) 25 mg PO DAILY Gastrointestinal 11/02/25 11/02/25 11/01/25 History
Issue
omeprazole 40 mg capsule,delayed 40 mg PO DAILY Gastrointestinal 11/02/25 11/02/25 11/01/25 History
release Issue
pregabalin 50 mg capsule (Lyrica) 50 mg PO DAILY Pain 11/02/25 11/02/25 11/01/25 History
pregabalin 50 mg capsule (Lyrica) 100 mg PO HS Pain 11/02/25 11/02/25 11/01/25 History
tamsulosin 0.4 mg capsule 0.4 mg PO QPM Urinary Issue 11/02/25 11/02/25 11/01/25 History
therapeutic multivitamin 1 tab PO DAILY Supplement 11/02/25 11/02/25 11/01/25 History
timolol maleate 0.5 % eye drops 1 drp LEFT EYE BID Eye Condition 11/02/25 11/02/25 11/01/25 History
Active Medications
Generic Name Dose Route Start Last Admin
Trade Name Freq PRN Reason Stop Dose Admin
Acetaminophen 650 mg 11/02/25 17:01
Acetaminophen 325 Mg Tablet PO 11/30/25 17:00
Q4HPRN PRN
mild pain/YATES/temp> 100.4F
Acetaminophen 650 mg 11/02/25 17:01
Acetaminophen 650 Mg Rectal Suppository RECTAL 11/30/25 17:00
Q4HPRN PRN
mild pain/YATES/temp> 100.4F
Albuterol/Ipratropium 3 ml 11/02/25 17:01 11/06/25 10:27
Ipratropium 0.5/Albuterol 3 Mg (3 Ml Ampul) INH 3 ml
R QID MAKEDA Administration
Protocol
Albuterol/Ipratropium 3 ml 11/02/25 17:01
Ipratropium 0.5/Albuterol 3 Mg (3 Ml Ampul) INH
R Q4HPRN PRN
shortness of breath
Protocol
Apixaban 5 mg 11/06/25 20:00
Apixaban (Eliquis) 5 Mg Tablet PO 12/04/25 19:59
BID MAKEDA
Atorvastatin Calcium 10 mg 11/02/25 18:00 11/05/25 19:52
Atorvastatin (Lipitor) 10 Mg Tablet PO 11/30/25 17:59 10 mg
QPM MAKEDA Administration
Benzonatate 200 mg 11/02/25 17:40
Benzonatate 100 Mg Capsule PO 11/30/25 17:39
TIDPRN PRN
COUGH
Bisacodyl 10 mg 11/02/25 17:01
Bisacodyl 10 Mg Rectal Suppository RECTAL 11/30/25 17:00
[id number] PRN
constipation
Budesonide 0.5 mg 11/02/25 20:00 11/06/25 07:21
Budesonide (Pulmicort Respules) 0.5 Mg/2 Ml INH 0.5 mg
R BID MAKEDA Administration
Protocol
Calamine 0 ml 11/04/25 10:05
Calamine Lotion 120 Ml Bottle (6 Oz) TOPICAL 12/02/25 10:04
TIDPRN PRN
itching
Escitalopram Oxalate 10 mg 11/02/25 18:00 11/05/25 19:52
Escitalopram 10 Mg Tablet PO 11/30/25 17:59 10 mg
QPM MAKEDA Administration
Finasteride 5 mg 11/02/25 18:00 11/05/25 19:52
Finasteride 5 Mg Tablet PO 11/30/25 17:59 5 mg
QPM MAKEDA Administration
Fluorometholone 1 drop 11/02/25 20:00 11/06/25 09:37
Fluorometholone 0.1% (Ophthalmic Suspension) 5 Ml Bottle LEFT EYE 11/30/25 19:59 1 drop
BID MAKEDA Administration
Furosemide 20 mg 11/03/25 08:00 11/04/25 11:13
Furosemide 20 Mg Tablet PO 12/01/25 07:59 20 mg
DAILY MAKEDA Administration
Guaifenesin 1,200 mg 11/02/25 20:00 11/06/25 09:18
Guaifenesin 600 Mg Extended Release Tablet PO 11/30/25 19:59 1,200 mg
Q12 MAKEDA Administration
Vancomycin HCl 1 each/ Device 0 mls @ 0 mls/hr 11/04/25 09:15
IV
PER PROTOCOL MAKEDA
Protocol
As Directed
Piperacillin Sod/Tazobactam Sod 2.25 grams in 50 mls @ 100 mls/hr 11/05/25 12:00 11/06/25 05:52
Zosyn IV 50 mls
Q6 MAKEDA Administration
Levetiracetam 750 mg 11/05/25 20:00 11/06/25 09:17
Levetiracetam 500 Mg Regular Release Tablet PO 12/03/25 19:59 750 mg
BID MAKEDA Administration
Methylprednisolone Sodium Succinate 40 mg 11/03/25 01:00 11/06/25 02:34
Methylprednisolone Pf 40 Mg/Ml Vial IV 12/01/25 00:59 40 mg
Q12H MAKEDA Administration
Metoprolol Tartrate 25 mg 11/02/25 20:00 11/06/25 09:18
Metoprolol 25 Mg Regular Release Tablet PO 11/30/25 19:59 25 mg
BID MAKEDA Administration
Morphine Sulfate 2 mg 11/02/25 17:01
Morphine 2 Mg/Ml Syringe IV 11/16/25 17:00
Q4HPRN PRN
severe breakthrough pain
Morphine Sulfate 15 mg 11/04/25 13:45
Morphine 15 Mg Immediate Release Tablet PO 11/18/25 13:42
QIDPRN PRN
moderate severe pain
Naloxegol 25 mg 11/03/25 08:00 11/06/25 09:18
Naloxegol Oxalate (Movantik) 25 Mg Tablet PO 12/01/25 07:59 25 mg
DAILY MAKEDA Administration
Non-Formulary Item 1 0 mg 11/04/25 11:00 11/04/25 11:16
Unit (Dupilumab [ SC 12/02/25 10:59 300 mg
Dupixent Pen] 300 Mg Q2W MAKEDA Administration
Sc [id number])
Ondansetron HCl 4 mg 11/02/25 17:01
Ondansetron 4 Mg/2 Ml Vial IV 11/30/25 17:00
Q6HPRN PRN
nausea and vomiting
Pantoprazole Sodium 40 mg 11/03/25 08:00 11/06/25 09:17
Pantoprazole 40 Mg Delayed Release Tablet PO 12/01/25 07:59 40 mg
DAILY MAKEDA Administration
Polyethylene Glycol 17 grams 11/02/25 17:01
Polyethylene Glycol Powder 17 Grams Packet PO 11/30/25 17:00
DAILYPRN PRN
constipation
Pregabalin 50 mg 11/03/25 08:00 11/06/25 09:18
Pregabalin 50 Mg Capsule PO 12/01/25 07:59 50 mg
DAILY MAKEDA Administration
Pregabalin 100 mg 11/02/25 22:00 11/05/25 21:45
Pregabalin 50 Mg Capsule PO 11/30/25 21:59 100 mg
HS MAKEDA Administration
Senna/Docusate Sodium 1 tablet 11/02/25 17:01
Docusate W/Senna (Xenia-Colace) Tablet PO 11/30/25 17:00
BIDPRN PRN
constipation
Sodium Chloride 1 vial 11/02/25 20:00 11/06/25 07:21
Sodium Chloride 3% For Inhalation 4 Ml Vial INH 1 vial
R BID MAKEDA Administration
Sodium Chloride 0 flush 11/02/25 18:00
Sodium Chloride 0.9% (Flush) Syringe IV 11/30/25 17:59
PER PROTOCOL MAKEDA
Tamsulosin HCl 0.4 mg 11/02/25 18:00 11/05/25 19:53
Tamsulosin 0.4 Mg Capsule PO 11/30/25 17:59 0.4 mg
QPM MAKEDA Administration
Timolol Maleate 1 drop 11/02/25 20:00 11/06/25 09:19
Timolol 0.5% (Ophthalmic Solution) Bottle LEFT EYE 11/30/25 19:59 1 drop
BID MAKEDA Administration
Review of Systems
-
12 point review systems offered no additional insight.
Physical Exam
-
Physical Exam
General: Respiratory Distress (on BIPAP - is alert and able to follow conversation)
HEENT: NormoCephalic and Anicteric
Respiratory: Rhonchi (RLL) and Decreased Breath Sounds (RLL); No Wheezes
Cardiac: S1/S2 and Regular Rhythm
GI: Soft and Non Tender
Musculoskeletal: No Edema
Neuro: AO x 3
Psych: Calm
Labs
Lab Results
WBC 11.2 10^3/uL (4.8-10.8) H 11/06/25 06:08
RBC 3.72 10^6/uL (4.70-6.10) L 11/06/25 06:08
Hgb 11.4 g/dL (13.0-18.0) L 11/06/25 06:08
Hct 37.7 % (39.0-52.0) L 11/06/25 06:08
MCV 101.3 fL (80.0-94.0) H 11/06/25 06:08
MCH 30.6 pg (27.0-31.0) 11/06/25 06:08
MCHC 30.2 g/dL (33.0-37.0) L 11/06/25 06:08
RDW 13.5 % (11.5-14.5) 11/06/25 06:08
Plt Count 176 10^3/uL (130-400) 11/06/25 06:08
MPV 11.0 fL (7.4-10.4) H 11/06/25 06:08
Abs Immat Gran (auto) 0.1 10^3/uL (0-0.05) H 11/02/25 12:42
Absolute Neuts (auto) 9.7 10^3/uL (1.4-6.5) H 11/02/25 12:42
Absolute Lymphs (auto) 1.5 10^3/uL (1.2-3.4) 11/02/25 12:42
Absolute Monos (auto) 1.5 10^3/uL (0.1-0.6) H 11/02/25 12:42
Absolute Eos (auto) 0.2 10^3/uL (0-0.7) 11/02/25 12:42
Absolute Basos (auto) 0.1 10^3/uL (0-0.2) 11/02/25 12:42
Immature Gran % 0.8 % (0-0.5) H 11/02/25 12:42
Neutrophils % 74.1 % (42.2-75.2) 11/02/25 12:42
Lymphocytes % 11.7 % (20.5-51.1) L 11/02/25 12:42
Monocytes % 11.6 % (1.7-9.3) H 11/02/25 12:42
Eosinophils % 1.4 % (0-6) 11/02/25 12:42
Basophils % 0.4 % (0-2) 11/02/25 12:42
Creatinine 1.2 mg/dL (0.7-1.3) 11/06/25 06:08
Vital Signs
Vital Signs
Temp Pulse Resp BP Pulse Ox
97.5 F 68 14 145/94 96
11/06/25 03:13 11/06/25 10:30 11/06/25 10:30 11/06/25 10:00 11/06/25 10:37
[2025-11-06] MEDS: SENOKOT-S 1 TABLET PO (12:41)
--- NOTE | 2025-11-06 13:52 | PTCARENOTE ---
Rec'd pt this AM. OOB x2 to [facility] with BM. Pt complaining of hard stool, Senna given. poor appetite. easily SOB. family at bedside, resting comfortably at this time. Vital signs stable.
--- NOTE | 2025-11-06 14:03 | W.PN.NEURO.1 ---
Addendum entered and electronically signed by Temi Luther NP 11/07/25 15:51:
Clarification of below documentation per [facility] notification; below document comment of 'partial seizure' should be specified to 'simple partial seizure.'
Addendum entered and electronically signed by David Shaw MD 11/06/25 19:46:
The patient was seen today along with the nurse practitioner Temi Luther and I agree with her assessment and management plan. I personally performed the medical decision making of this encounter and my assessment and management plan is as given
below.
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
The patient is an 85-year-old male who presented to the hospital on 11/02/2025 with report of worsening dyspnea and hypoxia. The patient is on Keppra 500 mg twice a day at home for 'shaky limb movements' as per history provided by the family and
according to the family an EEG was done that showed partial seizure activity associated with these movements. The patient was seen by a neurologist who started the patient on Keppra 500 mg twice a day with relief of these 'shaky limb movements'.
Later, patient's dose of Keppra was increased and he was started on 750 mg at night and he was kept on 500 mg in the morning. Yesterday, in the morning the nursing staff, the patient and his spouse reported that he had ' shaky movements', which
were severe, however he stayed awake during the episode and he did not have any tongue biting or bowel/bladder incontinence. EEG was done at bedside that showed intermittent left hemispheric sharp waves. The patient did not have any abnormal
movements when he was evaluated by the neurology team.
The patient likely had a partial seizure activity in the setting of metabolic disturbances.
Continue Keppra to 750 mg twice a day.
Seizure precautions to be taken as per protocol including no driving for 6 months and reporting to the [facility].
The pleural fluid was examined and the cytology is positive for small cell carcinoma.
Will sign off. Please call if you have any question.
Original Note:
Today's Communication / Plan
-
.
Neuro Assessment/Plan
Assessment
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
-EEG 11/05/25: final read pending, per Dr. Shaw, intermittent left frontal lobe sharp waves.
I. Abnormal limb shaking without loss of consciousness. Etiology of symptoms is possibly partial seizure activity in the set of metabolic disturbances given left frontal sharp waves noted on EEG.
II. Pleural fluid pathology consistent with malignancy new diagnosis.
Plan
-Continue Keppra 750mg twice a day.
-Keppra level pending.
-Will follow peripherally, please contact our Neurology service with any questions/concerns. Patient should follow-up outpatient with his usual Neurologist.
Subjective/Objective
Subjective Data
Date of Service: November 06, 2025
Patient and his at bedside report that this morning he had slight shaking of his right arm for a couple of minutes but otherwise the movements have resolved.
Objective Data
Vital Signs
Temp Pulse Resp BP Pulse Ox
97.6 F 62 16 126/64 96
11/06/25 12:35 11/06/25 12:00 11/06/25 12:00 11/06/25 12:00 11/06/25 10:37
Lab Results
11/06/25 06:08
11/06/25 06:08
PT 12.9 Sec (11.4-14.6) 11/02/25 12:42
INR 0.96 11/02/25 12:42
APTT 29.2 Sec (23.4-35.0) 11/02/25 12:42
Sodium 138 mmol/L (135-145) 11/06/25 06:08
Potassium 4.3 mmol/L (3.5-5.1) 11/06/25 06:08
BUN 38 mg/dl (9-20) H 11/06/25 06:08
Glucose 128 mg/dl (70-99) H 11/06/25 06:08
Calcium 8.5 mg/dl (8.4-10.2) 11/06/25 06:08
Phosphorus 2.2 mg/dl (2.5-4.5) L 11/06/25 06:08
Idg-P-Qrvhnnfdliv Pept 557 pg/ml 11/02/25 12:42
Vitamin B12 789 pg/ml (239-931) 11/05/25 05:18
Patient Allergies
acetaminophen (From Percocet) Adverse Reaction (Verified 11/02/25 12:14)
Nausea / Vomiting
oxycodone (From Percocet) Adverse Reaction (Verified 11/02/25 12:14)
Nausea / Vomiting
propoxyphene (From Darvocet-N) Adverse Reaction (Verified 11/02/25 12:14)
Nausea / Vomiting
Review of Systems
-
Neuro: Weakness and Tremors; Negative Dizzy, Headache, Numbness, Ataxia or Speech Problem
Physical Exam
-
General: Appears Chronically Ill and Wearing Oxygen
Eyes: No Ptosis
HEENT: Normocephalic and Atraumatic
Extended Neurological Exam
Attention Span & Concentration: Awake, Alert and Interactive
Speech: Rate of Production Unremarkable and Dysarthric (nasal sounding voice)
Cranial Nerves III, IV, : Extraocular Movement: Extraocular Movement Full in all Directions
Cranial Nerve VII: Facial Symmetry: Normal Facial Symmetry
Cranial Nerve VIII: Hearing: Unremarkable Hearing to Normal Conversational Volume
Muscle Strength, Overall: Reduced Throughout
Data Reviewed
-
EEG: Report Reviewed
Reviewed with: Physician, Patient and Family
Medications
-
Active Medications
Generic Name Dose Route Start Last Admin
Trade Name Freq PRN Reason Stop Dose Admin
Acetaminophen 650 mg 11/02/25 17:01
Acetaminophen 325 Mg Tablet PO 11/30/25 17:00
Q4HPRN PRN
mild pain/YATES/temp> 100.4F
Acetaminophen 650 mg 11/02/25 17:01
Acetaminophen 650 Mg Rectal Suppository RECTAL 11/30/25 17:00
Q4HPRN PRN
mild pain/YATES/temp> 100.4F
Albuterol/Ipratropium 3 ml 11/02/25 17:01 11/06/25 10:27
Ipratropium 0.5/Albuterol 3 Mg (3 Ml Ampul) INH 3 ml
R QID MAKEDA Administration
Protocol
Albuterol/Ipratropium 3 ml 11/02/25 17:01
Ipratropium 0.5/Albuterol 3 Mg (3 Ml Ampul) INH
R Q4HPRN PRN
shortness of breath
Protocol
Apixaban 5 mg 11/06/25 20:00
Apixaban (Eliquis) 5 Mg Tablet PO 12/04/25 19:59
BID MAKEDA
Atorvastatin Calcium 10 mg 11/02/25 18:00 11/05/25 19:52
Atorvastatin (Lipitor) 10 Mg Tablet PO 11/30/25 17:59 10 mg
QPM MAKEDA Administration
Benzonatate 200 mg 11/02/25 17:40
Benzonatate 100 Mg Capsule PO 11/30/25 17:39
TIDPRN PRN
COUGH
Bisacodyl 10 mg 11/02/25 17:01
Bisacodyl 10 Mg Rectal Suppository RECTAL 11/30/25 17:00
[id number] PRN
constipation
Budesonide 0.5 mg 11/02/25 20:00 11/06/25 07:21
Budesonide (Pulmicort Respules) 0.5 Mg/2 Ml INH 0.5 mg
R BID MAKEDA Administration
Protocol
Calamine 0 ml 11/04/25 10:05
Calamine Lotion 120 Ml Bottle (6 Oz) TOPICAL 12/02/25 10:04
TIDPRN PRN
itching
Escitalopram Oxalate 10 mg 11/02/25 18:00 11/05/25 19:52
Escitalopram 10 Mg Tablet PO 11/30/25 17:59 10 mg
QPM MAKEDA Administration
Finasteride 5 mg 11/02/25 18:00 11/05/25 19:52
Finasteride 5 Mg Tablet PO 11/30/25 17:59 5 mg
QPM MAKEDA Administration
Fluorometholone 1 drop 11/02/25 20:00 11/06/25 09:37
Fluorometholone 0.1% (Ophthalmic Suspension) 5 Ml Bottle LEFT EYE 11/30/25 19:59 1 drop
BID MAKEDA Administration
Furosemide 20 mg 11/03/25 08:00 11/04/25 11:13
Furosemide 20 Mg Tablet PO 12/01/25 07:59 20 mg
DAILY MAKEDA Administration
Guaifenesin 1,200 mg 11/02/25 20:00 11/06/25 09:18
Guaifenesin 600 Mg Extended Release Tablet PO 11/30/25 19:59 1,200 mg
Q12 MAKEDA Administration
Vancomycin HCl 1 each/ Device 0 mls @ 0 mls/hr 11/04/25 09:15
IV
PER PROTOCOL MAKEDA
Protocol
As Directed
Piperacillin Sod/Tazobactam Sod 2.25 grams in 50 mls @ 100 mls/hr 11/05/25 12:00 11/06/25 12:41
Zosyn IV 50 mls
Q6 MAKEDA Administration
Levetiracetam 750 mg 11/05/25 20:00 11/06/25 09:17
Levetiracetam 500 Mg Regular Release Tablet PO 12/03/25 19:59 750 mg
BID MAKEDA Administration
Methylprednisolone Sodium Succinate 40 mg 11/03/25 01:00 11/06/25 12:41
Methylprednisolone Pf 40 Mg/Ml Vial IV 12/01/25 00:59 40 mg
Q12H MAKEDA Administration
Metoprolol Tartrate 25 mg 11/02/25 20:00 11/06/25 09:18
Metoprolol 25 Mg Regular Release Tablet PO 11/30/25 19:59 25 mg
BID MAKEDA Administration
Morphine Sulfate 2 mg 11/02/25 17:01
Morphine 2 Mg/Ml Syringe IV 11/16/25 17:00
Q4HPRN PRN
severe breakthrough pain
Morphine Sulfate 15 mg 11/04/25 13:45
Morphine 15 Mg Immediate Release Tablet PO 11/18/25 13:42
QIDPRN PRN
moderate severe pain
Naloxegol 25 mg 11/03/25 08:00 11/06/25 09:18
Naloxegol Oxalate (Movantik) 25 Mg Tablet PO 12/01/25 07:59 25 mg
DAILY MAKEDA Administration
Non-Formulary Item 1 0 mg 11/04/25 11:00 11/04/25 11:16
Unit (Dupilumab [ SC 12/02/25 10:59 300 mg
Dupixent Pen] 300 Mg Q2W MAKEDA Administration
Sc H1xdrpo)
Ondansetron HCl 4 mg 11/02/25 17:01
Ondansetron 4 Mg/2 Ml Vial IV 11/30/25 17:00
Q6HPRN PRN
nausea and vomiting
Pantoprazole Sodium 40 mg 11/03/25 08:00 11/06/25 09:17
Pantoprazole 40 Mg Delayed Release Tablet PO 12/01/25 07:59 40 mg
DAILY MAKEDA Administration
Polyethylene Glycol 17 grams 11/02/25 17:01
Polyethylene Glycol Powder 17 Grams Packet PO 11/30/25 17:00
DAILYPRN PRN
constipation
Pregabalin 50 mg 11/03/25 08:00 11/06/25 09:18
Pregabalin 50 Mg Capsule PO 12/01/25 07:59 50 mg
DAILY MAKEDA Administration
Pregabalin 100 mg 11/02/25 22:00 11/05/25 21:45
Pregabalin 50 Mg Capsule PO 11/30/25 21:59 100 mg
HS MAKEDA Administration
Senna/Docusate Sodium 1 tablet 11/02/25 17:01 11/06/25 12:41
Docusate W/Senna (Xenia-Colace) Tablet PO 11/30/25 17:00 1 tablet
BIDPRN PRN Administration
constipation
Sodium Chloride 1 vial 11/02/25 20:00 11/06/25 07:21
Sodium Chloride 3% For Inhalation 4 Ml Vial INH 1 vial
R BID MAKEDA Administration
Sodium Chloride 0 flush 11/02/25 18:00
Sodium Chloride 0.9% (Flush) Syringe IV 11/30/25 17:59
PER PROTOCOL MAKEDA
Tamsulosin HCl 0.4 mg 11/02/25 18:00 11/05/25 19:53
Tamsulosin 0.4 Mg Capsule PO 11/30/25 17:59 0.4 mg
QPM MAKEDA Administration
Timolol Maleate 1 drop 11/02/25 20:00 11/06/25 09:19
Timolol 0.5% (Ophthalmic Solution) Bottle LEFT EYE 11/30/25 19:59 1 drop
BID MAKEDA Administration
Home Medications
�Medication �Instructions �Recorded
Patient Own Morphine Pump 1 dose SC DIRECTED Pain 11/02/25
amoxicillin 875 mg-potassium 1 tab PO BID Infection 11/02/25
clavulanate 125 mg tablet
aspirin 81 mg tablet,delayed 81 mg PO DAILY Blood Clot 11/02/25
release Prevention/Tx
azithromycin 250 mg tablet 250 mg PO MOTUWETHFR COPD PPX 11/02/25
benzonatate 200 mg capsule 200 mg PO TIDPRN PRN COUGH 11/02/25
budesonide 0.5 mg/2 mL suspension 0.5 mg inhalation R BID 11/02/25
for nebulization Lung/Breathing Issues
calcium 500 mg 1 tab PO DAILY Supplement 11/02/25
(carb,gluconate)-magnesium 250 mg
(gluc,oxide) tablet
cholecalciferol (vitamin D3) 25 25 mcg PO DAILY Supplement 11/02/25
mcg (1,000 unit) tablet (Vitamin
D3)
doxycycline hyclate 100 mg capsule 100 mg PO BID Infection 11/02/25
dupilumab 300 mg/2 mL subcutaneous 300 mg SC Q2W Lung/Breathing Issues 11/02/25
pen injector (Dupixent)
escitalopram oxalate 10 mg tablet 10 mg PO QPM Mental Health/Anxiety 11/02/25
(Lexapro)
ferrous sulfate 325 mg (65 mg 325 mg PO DAILY Supplement 11/02/25
iron) tablet
finasteride 5 mg tablet 5 mg PO QPM Urinary Issue 11/02/25
fluorometholone acetate 0.1 % eye 1 drp LEFT EYE BID Eye Condition 11/02/25
drops,suspension
furosemide 20 mg tablet (Lasix) 20 mg PO DAILY Fluid 11/02/25
Retention/Swelling
glucosamine 375 fb-[id number]-ovq 1 tab PO DAILY Supplement 11/02/25
no1 500 mg-C 15 mg-elisa 0.5 mg
tablet
(Udbrcrmkyrw-Euedtolsinh-HKA
Complex)
ipratropium 0.5 mg-albuterol 3 mg 3 ml inhalation R QID 11/02/25
(2.5 mg base)/3 mL nebulization Lung/Breathing Issues
soln
ipratropium bromide 0.02 % 0.5 mg inhalation R BID 11/02/25
solution for inhalation Lung/Breathing Issues
levetiracetam 500 mg tablet 500 mg PO DAILY Seizures 11/02/25
(Keppra)
levetiracetam 750 mg tablet 750 mg PO QPM Seizures 11/02/25
(Keppra)
lovastatin 40 mg tablet 40 mg PO QPM High Cholesterol 11/02/25
lysine 1,000 mg tablet 1,000 mg PO DAILY Supplement 11/02/25
metoprolol tartrate 25 mg tablet 25 mg PO BID Heart 11/02/25
Disease/Condition
morphine 15 mg immediate release 15 mg PO QID Pain 11/02/25
tablet
naloxegol 25 mg tablet (Movantik) 25 mg PO DAILY Gastrointestinal 11/02/25
Issue
omeprazole 40 mg capsule,delayed 40 mg PO DAILY Gastrointestinal 11/02/25
release Issue
pregabalin 50 mg capsule (Lyrica) 50 mg PO DAILY Pain 11/02/25
pregabalin 50 mg capsule (Lyrica) 100 mg PO HS Pain 11/02/25
tamsulosin 0.4 mg capsule 0.4 mg PO QPM Urinary Issue 11/02/25
therapeutic multivitamin 1 tab PO DAILY Supplement 11/02/25
timolol maleate 0.5 % eye drops 1 drp LEFT EYE BID Eye Condition 11/02/25
--- NOTE | 2025-11-06 16:20 | CM ---
F/U: ALICIA Temple spoke to patient/ . Patient is very ambivalent with going to SNF. Patient is doing poorly with PT/OT and needs SNF. Then daughter (DTR) arrived, Dtr said that it will likely be home with VN/PT due to the circumstances with his
health. CM to follow. PLAN: Anticipate Home with VN/PT.
[2025-11-06] MEDS: PROSCAR 5 MG PO (17:23)
[2025-11-06] MEDS: LEXAPRO 10 MG PO (17:23)
[2025-11-06] MEDS: FLOMAX 0.4 MG PO (17:23)
[2025-11-06] MEDS: LIPITOR 10 MG PO (17:23)
[2025-11-06] MEDS: ELIQUIS 5 MG PO (22:03)
[2025-11-06] MEDS: LYRICA 100 MG PO (22:04)
[2025-11-07] VITALS (12 sets, daily range): BP systolic 98–150; BP diastolic 60–71; BMI 34.2
[2025-11-07] MEDS: SOLU-MEDROL PF 40 MG IV ×2 (01:18→14:10)
[2025-11-07] MEDS: ZOSYN 50 IV ×2 (01:18→05:35)
--- NOTE | 2025-11-07 04:32 | PTCARENOTE ---
pt frequently taking off and putting back on own bipap overnight. saying its 'not right'. RT to bedside to talk to pt and ensure everything looks good with pts mask. Pt seems to be very anxious regarding overall status of his 02 levels and mask/
form of oxygen, does not wan tot wear NC 02 even when awake. education provided. satting between 88-94%. quickly recovers to low 90's when dipping below 90%.
[2025-11-07 06:00] LABS: Hematocrit 37.1 % (39.0-52.0); Hemoglobin 11.4 g/dL (13.0-18.0); Mean Corp Hgb Conc. 30.7 g/dL (33.0-37.0); Mean Corpuscular Volume 97.6 fL (80.0-94.0); Platelet Count 180 10^3/uL (130-400); Red Cell Dist. Width 13.2 % (11.5-14.5)
[2025-11-07 06:18] LABS: Blood Urea Nitrogen 33 mg/dl (9-20); Calcium 8.8 mg/dl (8.4-10.2); Chloride 97 mmol/L (98-107); Estimated Creatinine Clearance 48 ml/min; Glucose 106 mg/dl (70-99); Magnesium 2.5 mg/dl (1.6-2.3); Potassium 4.2 mmol/L (3.5-5.1); Sodium 137 mmol/L (135-145); eGFR > 60.00
[2025-11-07 06:29] LABS: Carbon Dioxide 37 mmol/L (22-30)
[2025-11-07] MEDS: DUONEB 3 ML INH ×4 (07:26→19:19)
[2025-11-07] MEDS: PULMICORT 0.5 MG INH ×2 (07:26→19:19)
[2025-11-07] MEDS: SODIUM CHLORIDE 3% FOR INHALATION 1 VIAL INH ×2 (07:27→19:19)
--- NOTE | 2025-11-07 07:28 | W.PN.HOSP.TC ---
Today's Communication/Plan
-
cont current Tx
ongoing goals of care discussion
Assessment / Plan
Assessment / Plan
Physical Exam
General: no acute distress, appears comfortable
HEENT: NormoCephalic and Anicteric hard of hearing
Respiratory: Decreased Breath Sounds (RLL); No Wheezes, stable respiratory status on NC
Cardiac: S1/S2 and Regular Rhythm
GI: Soft and Non Tender
Musculoskeletal: No Edema
Neuro: AOx3 conversant largely coherent
Psych: Calm
85M sz d/o restrictive lung dz COPD chronic home O2 4L HUGO BIPAP RLS Anxiety/depression here for Acute on Chronic Respiratory Failure likely 2/2 RLL pna and associate large pleural effusion.
Acute on chronic hypoxic respiratory failure
Acute RLL pneumonia
possible Sepsis due to pneumonia with organ dysfunction of acute om chronic hypoxic respiratory failure
Hx of COPD
Hx of Severe restrictive lung disease
- baseline 4L NC, on BIPAP wean as tolerated
- recently placed on Augmentin + Doxy without improvement
- IMU admit
- MRSA screen +
- follow culture results NGTD
- ID eval appreciated empiric vanc zosyn discontinued in lieu of neg cx results, effusion likely 2/2 malignancy as below
- nebs scheduled and prn
- mucolytics, anti-tussives
- 3% saline
- chest US appreciated large Right pleural effusion follow up repeat following thoracentesis noted moderate size similar post-thoracentesis Chest X-ray results.
- consult Pulmonary appreciated
- IR eval appreciated s/p Thoracentesis 11/03 1250 cc removed
New Dx Small Cell Lung Ca noted in pleural fluid pathology studies
-discussed with patient and patient's Larisa
-Pulm oncology eval appreciated
New onset Aflutter overnight since spontaneously resolved
Cardio eval appreciated, Eliquis started for stroke risk reduction
BUD resolving
Cr trended up to 1.5, initial Cr 0.9 on admission
suspect pre-renal 2/2 AMS poor oral intake since improved
Possibly obstructive, patient intermittently required straight cath, Barney since placed
home Lasix briefly held since resumed w/ improvement kidney function
Monitor renal function
Hx of seizures
Noted Periodic Jerking Movements though AOx3
Concern for uncontrolled sz d/o, possible simple partial sz
- EEG results appreciated
- Neuro eval appreciated home Keppra increased to 750 mg BID
HUGO on Nocturnal BIPAP
-cont home BIPAP prn/HS
RLS
Anxiety/Depression hx
- continue Lexapro
HLD - statin
hx of multiple back surgeries
hx of Demyelinating neuropathy
- pain pump continued
- continue morphine QIDprn mod severe pain, IV morphine prn severe breakthru pain.
- cont Movantik
- continue Lyrica
BPH
Acute Urinary Retention
- continue Finasteride, Flomax
Hx venous insufficiency
- continue oral Lasix
Hx of CAD
- aspirin/BB/Statin
DVT ppx: Eliquis
Code: DNR/DNI
Discussed with patient and patient's Larisa
I spent a total of 45 minutes with the patient or on the floor. More than 50% of this time involved counseling and coordination of care.
Anticipated Discharge: 24 - 48 hours
Subjective/Interval History
-
Date of Service: November 07, 2025
no acute distress, sitting up comfortably in bed. Larisa present during evaluation.
Objective Data
-
Labs:
Laboratory Results
11/07/25
05:37
WBC 12.5 H
Hgb 11.4 L
Hct 37.1 L
Plt Count 180
Sodium 137
Potassium 4.2
Chloride 97 L
Carbon Dioxide 37 H
BUN 33 H
Creatinine 1.0
Glucose 106 H
Calcium 8.8
Vital Signs:
Vital Signs
Temp Pulse Resp BP Pulse Ox
97.0 F 62 20 134/68 96
11/07/25 03:00 11/07/25 06:00 11/07/25 06:00 11/07/25 06:00 11/07/25 06:00
I&O
11/06/25 11/07/25 11/08/25
06:59 06:59 06:59
Intake Total 820 / 820
Output Total 1870 / 1870
Balance -1050 / -1050
--- NOTE | 2025-11-07 08:13 | PHA.VAN.FU ---
Vancomycin Assessment / Plan
- Assessment
Renal Function: SCR Decreasing
WBC's are: Trending Up
In the past 24 hrs, patient has been: Afebrile
Concomitant Antimicrobials: piperacillin/tazobactam
- Assessment - Therapeutic Drug Monitoring
Random Level: 14.4 - drawn ~20.5H after previous dose of 1g
- Dosing Plan
Dosing by Level: Re-dose today (Vanc 1000mg)
Dosing Comments: if level and renal function remains stable, may consider scheduling
- Monitoring Plan
Random Level: 11/08 0600
- Follow Up
Pharmacy will continue to follow.
Vancomycin Follow UP
- -
Patient Age: 85
Patient Sex: Male
Vancomycin Day #: 6
Indication: Pulmonary/Respiratory
Requesting Provider: Dr. Vieira / Dr. Johnson
Pertinent Antimicrobial Allergies:
No pertinent antibiotic allergies
Height / Weight:
Height 5 ft 1 in
Actual Weight 82 kg
Pertinent Past Medical History: BMI: 34.2, COPD (home O2)
- Vital Signs / Lab Results
Temp Pulse Resp BP Pulse Ox
97.0 F 65 16 134/68 97
11/07/25 03:00 11/07/25 07:30 11/07/25 07:30 11/07/25 06:00 11/07/25 07:30
Lab Results - Hematology
11/05/25 11/06/25 11/07/25
05:18 06:08 05:37
WBC 13.4 H 11.2 H 12.5 H
Lab Results - Chemistry
11/05/25 11/06/25 11/07/25
05:18 06:08 05:37
BUN 49 H 38 H 33 H
Creatinine 1.5 H 1.2 1.0
Estimated Creat Clear 32 40 48
Microbiology Results
11/02/25 13:49 Blood Culture - Preliminary
Blood/Venous No Growth in 4 days- Final report to follow
11/02/25 13:43 Blood Culture - Preliminary
Blood/Venous No Growth in 4 days- Final report to follow
11/03/25 13:08 Body Fluid Culture - Final
Pleural Fluid No Growth After 72 Hours
Gram Stain - Final
Therapeutic Drug Monitoring
Random Vancomycin 14.4 ug/ml 11/07/25 05:37
[2025-11-07] MEDS: VANCOCIN 200 IV (09:18)
[2025-11-07] MEDS: ELIQUIS 5 MG PO ×2 (09:30→20:04)
[2025-11-07] MEDS: LOPRESSOR 25 MG PO ×2 (09:30→20:02)
[2025-11-07] MEDS: PROTONIX 40 MG PO (09:30)
[2025-11-07] MEDS: MUCINEX 1200 MG PO ×2 (09:31→20:02)
[2025-11-07] MEDS: KEPPRA 750 MG PO ×2 (09:31→20:01)
[2025-11-07] MEDS: TIMOPTIC 0.5% OPHTHALMIC SOLUTION 1 DROP LEFT EYE ×2 (09:32→20:09)
[2025-11-07] MEDS: LASIX 20 MG PO (09:32)
[2025-11-07] MEDS: FML 0.1% OPHTHALMIC SUSPENSION 1 DROP LEFT EYE ×2 (09:33→20:09)
[2025-11-07] MEDS: LYRICA 50 MG PO (09:33)
[2025-11-07] MEDS: MOVANTIK 25 MG PO (09:34)
--- NOTE | 2025-11-07 10:22 | W.PN.PUL.V3 ---
Today's Communication / Plan
-
Supplemental oxygen
Patient has his own BiPAP machine
Chest ultrasound-is there enough fluid for thoracentesis or PleurX catheter placement
Not a candidate for advanced small cell cancer treatment
Goals of care discussion ongoing
Assessment
-
Patient is an 85-year-old male with previous history of chronic hypoxic respiratory failure, severe HUGO on BiPAP, COPD with severe restrictive lung defect presenting with worsening shortness of breath from home. Patient is noted to use 4 L nasal
cannula chronically at home. He was noted by his to have worsening shortness of breath. She had tried BiPAP temporarily before coming to the ER which was not helpful. He has prior CT imaging demonstrating loculated right pleural effusion.
He is also maintained on a morphine pump. He is notably DNR, confirmed by patient and family that they would not want aggressive measures. He is admitted to IMU for acute on chronic hypoxic respiratory failure. We are consulted for evaluation.
Acute on chronic hypoxic respiratory failure
Leukocytosis, mild
Right sided loculated pleural effusion, chronic
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
Conditions present prior to admission:
Severe COPD, follows with AF
6MWT performed 10/03/25 showing he needs 4L/min with rest and activity
Full PFTs from 05/02/2025 showed a severe restrictive lung defect
Severe HUGO, RDI of 98 in January 2008, and wears auto-BiPAP [id number] with PS: 2-7cmH2O, bled with 4L/min
Previously managed at [facility], transitioned care to in the past year
Former tobacco smoker, quit in [id number], smoked 0.5PPD x 20 years
RLD
Restless leg syndrome
Back injury x 8 surgeries, now on morphine pain pump/implanted 03/22/2004
several back surgeries including fusion of C5 + C6 and C6+C7, L3 +S1, L4+L5 [id number]
High cholesterol
Polyneuropathy
Hypertension
Seizures
Ulcers/Gastritis
Hx Fall
Depression/Anxiety
Heart catheterization 01/17/2008, 04/24/14
Plan
Prior history of lung disease is noted including COPD, severe restrictive lung disease, former smoker, severe HUGO
Prior PFTs demonstrating severe restrictive lung defect
Respiratory status remains tenuous-somewhat improved after thoracentesis
Continues up about oxygen--4 L-97% saturation
Note:ABG 11/03/25--75/81/7.33
BiPAP continues as tolerated-family brought in his own CPAP machine and mask
Nebulizers-DuoNeb's and budesonide
Steroids-no change-Currently on Solu-Medrol 40 mg IV every 12 hours
Mucolytic
Aspiration precautions.
Mucus clearing devices
CT chest06/2025-minimal right pleural fluid.
CT chest 09/2025-moderate loculated pleural fluid with atelectasis
Chest x-ray 11/02/25 with increased pleural fluid on the right and ultrasound noted-large right pleural fluid
Thoracentesis right side 11/03/25--1250 mL serosanguineous pleural fluid, pH 743, WBC 870, total protein 4.5, LDH 359-exudate, cultures negative, cytology-positive for small cell carcinoma
Dr. 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
Chest x-ray 11/03/2025-no pneumothorax, moderate probable loculated right pleural effusion improved
Chest ultrasound 11/07/20250853-[id number] there enough fluid for repeat thoracentesis
Dr. Rivera spoke to patient-told him about his diagnosis of cancer in the pleural fluid-explained there are multiple treatments including chemotherapy-suspect he would not tolerate it and he said he has very poor performance status-he will think
about it and discuss with his family
Dr. Rivera also spoke to hospitalist
Oncology was consulted for an opinion-pending
Told patient pleural fluid reaccumulation likely-at that point PleurX catheter could be considered unless patient moves towards comfort/hospice care
Cultures reviewed.
MRSA screen positive.
Blood cultures no growth.
Influenza negative
Empiric antibiotic-vancomycin and Zosyn
Diuresis continues as tolerated
Monitor weight, intake, output, renal function and lower extremity edema
Echocardiogram-11/03/2025-EF 55-60%, no significant valvular abnormalities.
Reviewed with nursing and Dr. Rivera tried to call Kiarra at the 2 numbers provided-no answer on 11/07/2025-attempting to update and discuss goals of care
Dr. Rivera updated daughter at the bedside 11/04/2025-explained tenuous and significantly compromised respiratory status, potential for pleural fluid reaccumulation
Prognosis unfortunately quite poor-comfort is a priority
Goals of care discussion ongoing
He is currently DNR, Dr. Finney verified the status with patient and his family
If he does not clinically improve, they are all in agreement that he would want to be made comfortable
Diagnostic Data
Chest X- Ray:11/02/25- Large partially loculated right pleural effusion with associated atelectasis and/or pneumonia, likely similar to prior CT.
CT Scan: CHEST 10/21/25- There is an increased moderate, loculated right-sided pleural effusion with adjacent opacities within the posterior lateral right lung which may represent atelectasis although pneumonia is possible.
There is opacification of the proximal right lower lobe bronchus which may represent mucous plugging although a mass is possible. Consider bronchoscopy for further evaluation.
There is a mildly displaced sternal body fracture. Additionally there is a compression deformity of the T8 vertebral body. These are new from imported CT in 2023 although similar appearance to recent prior CT.
07/07/25- Overall low lung volumes with some interstitial changes, many of which may be chronic. Irregular lobulated ill-defined 'consolidation' in the lower lobe of the right lung which although could represent atelectasis and/or pneumonia,
malignancy cannot be excluded. Are there prior outside studies for comparison? If not, consider PET scan with dual point imaging.
.
Subjective Data
-
Date of Service:
Date of Service: November 07, 2025
Chief Complaint: Pulmonary Follow Up and Dyspnea Follow Up
Subjective:
Sleeping with BiPAP, no respiratory distress
Review of Systems
General: Other (Per HPI)
Objective Data
Data Reviewed
Vital Signs / I&O:
Vital Signs
Temp Pulse Resp BP Pulse Ox
97.0 F 75 16 126/64 97
11/07/25 03:00 11/07/25 09:32 11/07/25 07:30 11/07/25 09:32 11/07/25 07:30
Intake and Output
11/06/25 11/07/25 11/08/25
06:59 06:59 06:59
Intake Total 820 / 820 320 / 320
Output Total 1870 / 1870 500 / 500
Balance -1050 / -1050 -180 / -180
SaO2: 97
Nasal Cannula flow liters per minute: 6
Physical Exam
General: Respiratory Distress (n) and Comfortable
HEENT: Normocephalic and Anicteric
Cardiovascular: Regular Rhythm
Respiratory: Clear ( diminished breath sounds at the right greater than left base), Wheeze (n), Crackles (n), Rhonchi, Non-Labored Respirations, Accessory Resp Muscle Use (n) and Stridor
GI: Soft, Non Distended and Non Tender
Neurology: Awake and Alert
Skin: Warm, Good Color, Cyanosis (n), Jaundice (n) and Rash (n)
Labs/Micro/Reports
Lab Data
11/07/25 05:37
11/07/25 05:37
Microbiology
11/02/25 13:49 Blood/Venous Blood Culture - Preliminary
No Growth in 4 days- Final report to follow
11/02/25 13:43 Blood/Venous Blood Culture - Preliminary
No Growth in 4 days- Final report to follow
11/03/25 13:08 Pleural Fluid Body Fluid Culture - Final
No Growth After 72 Hours
11/03/25 13:08 Pleural Fluid Gram Stain - Final
--- NOTE | 2025-11-07 11:03 | W.PN.ID1 ---
Date of Service
Date of Service: November 07, 2025
Today's Communication
Discontinue antibiotics and observe.
Assessment / Plan
Exudative Right Pleural Effusion
- Cytology positive for small cell carcinoma
Seizure disorder on Keppra
COPD on dupixent, HUGO, RLD
BUD - progressive
Recommendations:
- blood cultures x2 in progress
- 11/03 body fluid culture no growth at 72 hours
- monitoring for pleural fluid reaccumulation
- on methylprednisolone 40 mg IV q12 started 11/03
- Pleural fluid cultures negative, suggesting that effusion is secondary to malignancy rather than infection.
- Discontinue further antibiotics and observe.
- Monitor white count and temperature curve.
����������������������������������������������������������
Chief Complaint
-: Pneumonia (Empyema)
Subjective / Review of Systems
Patient seen and examined. Currently off BiPAP.
Review of Systems: No Fever, No Chills and Cough
Vital Signs / Physical Exam
Vital Signs
Vital Signs
Temp Pulse Resp BP Pulse Ox
97.0 F 75 16 126/64 97
11/07/25 03:00 11/07/25 09:32 11/07/25 07:30 11/07/25 09:32 11/07/25 10:22
Physical Exam
Constitutional: Chronically Ill, Non-toxic and Obese
Cardiovascular: S1/S2; Negative S3/S4
Pulmonary: Coarse and Other (Minimally labored. Currently off BiPAP)
Gastrointestinal: Soft, Non Tender and Non Distended
Extremities: Edema; Negative Cyanosis or Erythema
Neurological: Awake
Psychological: Calm
Objective Data
Lab Data
Lab Results
11/07/25 05:37
11/07/25 05:37
PT 12.9 Sec (11.4-14.6) 11/02/25 12:42
INR 0.96 11/02/25 12:42
APTT 29.2 Sec (23.4-35.0) 11/02/25 12:42
Estimated Creat Clear 48 ml/min 11/07/25 05:37
Lactic Acid 1.1 mmol/L (0.7-2.0) 11/02/25 13:43
Total Bilirubin 0.3 mg/dl (0.2-1.3) 11/02/25 12:42
AST 136 U/L (17-59) H 11/02/25 12:42
ALT 42 U/L (0-50) 11/02/25 12:42
Alkaline Phosphatase 100 U/L (38-126) 11/02/25 12:42
Most recent labs reviewed.
Micro Results:
11/02/25 13:49 Blood Culture - Preliminary
Blood/Venous No Growth in 4 days- Final report to follow
11/02/25 13:43 Blood Culture - Preliminary
Blood/Venous No Growth in 4 days- Final report to follow
11/03/25 13:08 Body Fluid Culture - Final
Pleural Fluid No Growth After 72 Hours
Gram Stain - Final
11/03/25 08:15 Nasal Screen MRSA (PCR) - Final
Nose Staph aureus MRSA
11/02/25 12:46 Influenza Types A & B ([facility]) - Final
Nasal Swab Negative for Influenza A & B, NAAT
Negative results must be combined with clinical observations
and patient history.
Nucleic Acid Amplification test (NAAT)performed on the
[employer] platform.
Laboratory Tests
11/03/25
Pleural fluid 13:08
Fluid pH 7.43
Fluid WBC 870
Fluid Mononuclear Cell 91.6
Fl Polymorphonucl Cell 8.4
Fluid Glucose 119
Fluid Total Protein 4.5
Fluid LDH 359
Pathology:
11/03/2025 Pleural fluid, right thorax, thoracentesis: positive for small cell carcinoma
Imaging:
11/03/2025 CXR (portable): no pneumothorax. Moderate probable loculated right pleural effusion noted. Please see full dictation for additional detail.
--- NOTE | 2025-11-07 13:26 | HOSPNOTE ---
Referral received. Spoke to daughter Tika and reviewed hospice options from inpatient, snf and home. She would like to discuss with mother and sister. She has my direct number to reach back out for more information vs decision. Reviewed at this
current time, patient could be managed and go home with hospice. More information to follow.Primary RN and CM updated.
--- NOTE | 2025-11-07 13:35 | PTCARENOTE ---
Rec'd pt this AM. complains of feeling SOB even when O2 sat is stable. remains on 4L while awake and Bipap when asleep. Tachypnic most of the time. Vital signs stable. family at bedside. Discussions regarding hospice are ongoing.
--- NOTE | 2025-11-07 15:39 | PTCARENOTE ---
Discussed case with Maryjo Lock from Hospice. Updated family. Family considering comfort measures vs home with hospice. Concerned that pt's would not be able to care for him at home as he is max assist OOB and is now incontinent of stool
--- NOTE | 2025-11-07 15:43 | PN.CDI ---
CDI
- -
CDI:
Physician Documentation Request
Admit Date: 11/02/25 14:45
Dear Temi Luther,
Neurology progress note states 'The patient likely had a partial seizure activity in the setting of metabolic disturbances'
Please further clarify the partial seizure:
simple
complex
other
Use of terms such as suspected, likely, concern for, or probable (associated with a specific diagnosis that is being evaluated, monitored, or treated as if it exists) are acceptable and can be coded in the inpatient setting, when documented at the
time of discharge.
Thank you,
Rukhsana Baltazar RN, BSN
CDI Specialist
tiger text
Please use your independent medical judgment in providing your response.
--- NOTE | 2025-11-07 16:38 | CM ---
F/U: ALICIA Windy was asked by Family to speak to them. There is 2 daughters, , and a friend (?). Family is interested in Hospice so went over Home vs Inpatient. Family would want Inpatient. Liaison covering [facility] today talked to daughters and ,
Liaison said that he was more Home hospice appropriate. Perhaps patient's respiratory will get worse and he will qualify. Family will decide. PLAN: Home Hospice vs. Inpatient.
[2025-11-07] MEDS: PROSCAR 5 MG PO (17:49)
[2025-11-07] MEDS: FLOMAX 0.4 MG PO (17:49)
[2025-11-07] MEDS: LIPITOR 10 MG PO (17:49)
[2025-11-07] MEDS: LEXAPRO 10 MG PO (17:50)
[2025-11-07] MEDS: TYLENOL 650 MG PO (20:01)
[2025-11-07] MEDS: LYRICA 100 MG PO (20:03)
[2025-11-07] MEDS: MORPHINE SULFATE 15 MG PO (20:03)
[2025-11-08] VITALS (8 sets, daily range): BP systolic 101–134; BP diastolic 55–82; BMI 33.4
[2025-11-08] MEDS: SOLU-MEDROL PF 40 MG IV ×2 (01:43→12:59)
[2025-11-08 06:33] LABS: Hematocrit 36.2 % (39.0-52.0); Hemoglobin 11.4 g/dL (13.0-18.0); Mean Corp Hgb Conc. 31.5 g/dL (33.0-37.0); Mean Corpuscular Volume 96.3 fL (80.0-94.0); Platelet Count 167 10^3/uL (130-400); Red Cell Dist. Width 13.6 % (11.5-14.5)
[2025-11-08 07:03] LABS: Blood Urea Nitrogen 34 mg/dl (9-20); Calcium 8.6 mg/dl (8.4-10.2); Carbon Dioxide 39 mmol/L (22-30); Chloride 96 mmol/L (98-107); Estimated Creatinine Clearance 43 ml/min; Glucose 117 mg/dl (70-99); Magnesium 2.4 mg/dl (1.6-2.3); Potassium 4.2 mmol/L (3.5-5.1); Sodium 136 mmol/L (135-145); eGFR > 60.00
[2025-11-08] MEDS: DUONEB 3 ML INH ×2 (07:19→11:21)
[2025-11-08] MEDS: SODIUM CHLORIDE 3% FOR INHALATION 1 VIAL INH (07:20)
[2025-11-08] MEDS: PULMICORT 0.5 MG INH (07:20)
--- NOTE | 2025-11-08 08:40 | W.PN.ID1 ---
Date of Service
Date of Service: November 08, 2025
Today's Communication
Sign off
Assessment / Plan
Exudative Right Pleural Effusion
- Cytology with small cell carcinoma
Seizure disorder on Keppra
COPD on dupixent, HUGO, RLD
BUD - progressive
Recommendations:
- blood cultures x2 negative
- 11/03 body fluid culture no growth
- monitoring for pleural fluid reaccumulation
- Pleural fluid cultures negative, suggesting that effusion is secondary to malignancy rather than infection.
- Continue off antibiotics
- Family deciding on goals of care
Little more to offer from a Infectious Diseases standpoint.
Will see again at your request.
����������������������������������������������������������
Chief Complaint
-: Pneumonia (Empyema) and Other (Small cell lung cancer)
Subjective / Review of Systems
Review of Systems: No Fever
Vital Signs / Physical Exam
Vital Signs
Vital Signs
Temp Pulse Resp BP Pulse Ox
98.1 F 76 22 101/60 98
11/08/25 07:56 11/08/25 07:24 11/08/25 07:24 11/08/25 04:00 11/08/25 07:24
Physical Exam
Constitutional: Acutely Ill, Chronically Ill, Non-toxic and Obese
Oropharyngeal: Other (BiPAP mask in place)
Cardiovascular: S1/S2; Negative S3/S4
Pulmonary: Coarse and Other (Minimally labored. )
Gastrointestinal: Soft, Non Tender and Non Distended
Extremities: Edema; Negative Cyanosis or Erythema
Psychological: Calm
Objective Data
Lab Data
Lab Results
11/08/25 06:22
11/08/25 06:22
PT 12.9 Sec (11.4-14.6) 11/02/25 12:42
INR 0.96 11/02/25 12:42
APTT 29.2 Sec (23.4-35.0) 11/02/25 12:42
Estimated Creat Clear 43 ml/min 11/08/25 06:22
Lactic Acid 1.1 mmol/L (0.7-2.0) 11/02/25 13:43
Total Bilirubin 0.3 mg/dl (0.2-1.3) 11/02/25 12:42
AST 136 U/L (17-59) H 11/02/25 12:42
ALT 42 U/L (0-50) 11/02/25 12:42
Alkaline Phosphatase 100 U/L (38-126) 11/02/25 12:42
Most recent labs reviewed.
Micro Results:
11/02/25 13:49 Blood Culture - Final
Blood/Venous No Growth - Final Report
11/02/25 13:43 Blood Culture - Final
Blood/Venous No Growth - Final Report
11/03/25 13:08 Body Fluid Culture - Final
Pleural Fluid No Growth After 72 Hours
Gram Stain - Final
11/03/25 08:15 Nasal Screen MRSA (PCR) - Final
Nose Staph aureus MRSA
11/02/25 12:46 Influenza Types A & B ([facility]) - Final
Nasal Swab Negative for Influenza A & B, NAAT
Negative results must be combined with clinical observations
and patient history.
Nucleic Acid Amplification test (NAAT)performed on the
[employer] platform.
Laboratory Tests
11/03/25
Pleural fluid 13:08
Fluid pH 7.43
Fluid WBC 870
Fluid Mononuclear Cell 91.6
Fl Polymorphonucl Cell 8.4
Fluid Glucose 119
Fluid Total Protein 4.5
Fluid LDH 359
Pathology:
11/03/2025 Pleural fluid, right thorax, thoracentesis: positive for small cell carcinoma
Imaging:
11/03/2025 CXR (portable): no pneumothorax. Moderate probable loculated right pleural effusion noted. Please see full dictation for additional detail.
[2025-11-08] MEDS: KEPPRA 750 MG PO (09:26)
[2025-11-08] MEDS: PROTONIX 40 MG PO (09:27)
[2025-11-08] MEDS: MUCINEX 1200 MG PO (09:27)
[2025-11-08] MEDS: LOPRESSOR 25 MG PO (09:28)
[2025-11-08] MEDS: ELIQUIS 5 MG PO (09:28)
[2025-11-08] MEDS: LYRICA 50 MG PO (09:28)
[2025-11-08] MEDS: LASIX 20 MG PO (09:29)
[2025-11-08] MEDS: FML 0.1% OPHTHALMIC SUSPENSION 1 DROP LEFT EYE (09:29)
[2025-11-08] MEDS: MOVANTIK 25 MG PO (09:29)
[2025-11-08] MEDS: TIMOPTIC 0.5% OPHTHALMIC SOLUTION 1 DROP LEFT EYE (09:30)
--- NOTE | 2025-11-08 12:05 | PTCARENOTE ---
pt and his spouse met with special needs tutor, signing on. requesting 2N bed. Pt denies pain, requesting Bipap back on. No change in physical assessment. CB in reach.
--- NOTE | 2025-11-08 13:00 | W.DCSUMMARY ---
Discharge Summary
Discharge Data
Date of Admission: 11/02/25
Date of Discharge: 11/08/25
-
Pending Results: No
Hospital Course
Physical Exam
General: no acute distress, appears comfortable
HEENT: NormoCephalic and Anicteric hard of hearing
Respiratory: Decreased Breath Sounds (RLL); No Wheezes, stable respiratory status on BIPAP
Cardiac: S1/S2 and Regular Rhythm
GI: Soft and Non Tender
Musculoskeletal: No Edema
Neuro: AOx3 conversant largely coherent
Psych: Calm
85M sz d/o restrictive lung dz COPD chronic home O2 4L HUGO BIPAP RLS Anxiety/depression chronic pain managed w/ pain pump here for Acute on Chronic Respiratory Failure suspected 2/2 RLL pna with associate large pleural effusion and COPD
exacerbation. Treated with broad spectrum abx vanc zosyn, steroids, and thoracentesis. Respiratory status remain tenuous throughout stay intermittently requiring BIPAP prn for shortness of breath. Hospital course was notable for new onset
aflutter/afib, self limited, spontaneously converted back to NSR. Cardiology evaluated and patient was placed on Eliquis for stroke risk reduction. Patient also notably had periodic jerking movements concerning for uncontrolled simple partial
seizures. Neurology evaluated and patient's Keppra was increased to 750 mg BID. Patient also developed acute urinary retention requiring Barney placement. 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 Pulmonology and
Oncology evaluation noted that, given poor functional status, patient would be a poor candidate for chemo and treatment if any would be palliative. No significant growth noted in cultures, pleural effusion was determined to be malignant, with
pneumonia less likely/ruled out, antibiotics were subsequently discontinued as per ID recommendations. Following Hospice evaluation, with extensive goals of care discussion with patient/family, patient/family ultimately requested hospice/comfort
care. [facility] Hospice appropriate for mgmt of pain/sob. Patient was subsequently signed on to inpt hospice.
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
Acute on Chronic Respiratory Failure
Obstructive Sleep Apnea
Sz d/o
Chronic pain, pain pump
paroxysmal aflutter
Restless Leg Syndrome
Acute Urinary Retention
Coronary Artery Disease
Venous Insufficiency
Neuropathy
Inpt Hospice
[facility]
IV Morphine prn pain/sob w transition to morphine gtt as necessary
cont home Pregabalin Lexapro for now, as long as pt able to PO
Regular diet comfort feed
IV Keppra 750 mg BID
ativan prn anxiety/seizure
DNR
Discussed with patient, patient's Larisa, daughter Ailyn, son-in-law Tl, RN, and channel manager
I spent a total of 75 minutes with the patient or on the floor. More than 50% of this time involved counseling and coordination of care.
Discharge Plan
-
Patient Disposition: Hospice - Inpatient [facility]
Discharge Orders:
Discharge Patient (As Directed); Ordered 11/08/25
Ordered By: Ke Simon
Discharge Date and Time
Discharge Date/Time: 11/08/25 13:18
Print Language: ARABIC
[2025-11-08] MEDS: MORPHINE SULFATE 2 MG IV (13:05)
--- NOTE | 2025-11-08 13:23 | CM ---
CM reviewed pt with hospice nurse
Pt planned for [facility] admission today
Discharge Disposition- [facility]
--- NOTE | 2025-11-08 15:22 | W.PN.UPDATE ---
Update Note
Progress Note Update
Patient transition to comfort care/hospice. Pulmonary service will now sign off. Please call back with any questions or concerns.
== END 2025-11-08 13:18 | disposition hospice, inpatient (51) | DRG 180 ==
LOC: IMU 14:45
PROVIDERS: Internal Medicine Critical Care Medicine; Nurse Practitioner Family; Radiology Diagnostic Radiology; Registered Nurse Critical Care Medicine; ADMITTING PHYSICIAN Internal Medicine; ATTENDING PHYSICIAN Internal Medicine; CONSULT PHYSICIAN Internal Medicine; CONSULT PHYSICIAN Internal Medicine Hematology & Oncology; CONSULT PHYSICIAN Psychiatry & Neurology Neurology; CONSULT PHYSICIAN Student in an Organized Health Care Education/Training Program; EMERGENCY PHYSICIAN Emergency Medicine; FAMILY PHYSICIAN Family Medicine
PROC: 5A09357 Assistance with Respiratory Ventilation, Less than 24 Consecutive Hours, Continuous Positive Airway Pressure (ICD-10-PCS; 2025-11-02)
PROC: 0W993ZZ Drainage of Right Pleural Cavity, Percutaneous Approach (ICD-10-PCS; 2025-11-03)
DX: C34.90 Malignant neoplasm of unspecified part of unspecified bronchus or lung (principal); J96.21 Acute and chronic respiratory failure with hypoxia; J44.1 Chronic obstructive pulmonary disease with (acute) exacerbation; J90 Pleural effusion, not elsewhere classified; I48.3 Typical atrial flutter; J44.0 Chronic obstructive pulmonary disease with (acute) lower respiratory infection; N17.9 Acute kidney failure, unspecified; G40.109 Localization-related (focal) (partial) symptomatic epilepsy and epileptic syndromes with simple partial seizures, not intractable, without status epilepticus; I47.19 Other supraventricular tachycardia; Z51.5 Encounter for palliative care; G47.33 Obstructive sleep apnea (adult) (pediatric); G25.81 Restless legs syndrome; I87.2 Venous insufficiency (chronic) (peripheral); I25.10 Atherosclerotic heart disease of native coronary artery without angina pectoris; F41.9 Anxiety disorder, unspecified; F32.A Depression, unspecified; J98.4 Other disorders of lung; D72.829 Elevated white blood cell count, unspecified; G62.9 Polyneuropathy, unspecified; N40.1 Benign prostatic hyperplasia with lower urinary tract symptoms; R33.8 Other retention of urine; I10 Essential (primary) hypertension; G89.4 Chronic pain syndrome; E66.9 Obesity, unspecified; E78.00 Pure hypercholesterolemia, unspecified; Z66 Do not resuscitate; Z96.89 Presence of other specified functional implants; Z79.82 Long term (current) use of aspirin; Z79.51 Long term (current) use of inhaled steroids; Z99.81 Dependence on supplemental oxygen; Z87.891 Personal history of nicotine dependence; Z88.6 Allergy status to analgesic agent; Z88.5 Allergy status to narcotic agent; Z11.52 Encounter for screening for COVID-19; Z79.899 Other long term (current) drug therapy; Z98.1 Arthrodesis status; Z79.891 Long term (current) use of opiate analgesic; Z68.33 Body mass index [BMI] 33.0-33.9, adult
CPT/HCPCS: 32555; 36600; 71045; 76604; 80048; 80053; 80177; 80202; 82607; 82728; 82746; 82805; 82945; 83605; 83615; 83735; 83880; 83986; 84100; 84157; 84443; 84484; 85025; 85027; 85610; 85730; 87015; 87040; 87070; 87205; 87502; 87641; 87811; 88112; 88305; 88341; 88342; 89051; 92610; 93005; 93306; 94640; 94660; 95816; 96374; 96375; 97163; 97167; 99285

== ENCOUNTER 2025-11-08 13:20 | Inpatient (IN) | payer OTHER, SELFPAY ==
--- NOTE | 2025-11-08 13:39 | HPS.HSE ---
Family Physician
-
Family Physician: Cain Justin
Chief Complaint
-
shortness of breath
History of Present Illness
85M sz d/o restrictive lung dz COPD chronic home O2 4L HUGO BIPAP RLS Anxiety/depression chronic pain managed w/ pain pump here for Acute on Chronic Respiratory Failure suspected 2/2 RLL pna with associate large pleural effusion and COPD
exacerbation. Treated with broad spectrum abx vanc zosyn, steroids, and thoracentesis. Respiratory status remain tenuous throughout stay intermittently requiring BIPAP prn for shortness of breath. Hospital course was notable for new onset
aflutter/afib, self limited, spontaneously converted back to NSR. Cardiology evaluated and patient was placed on Eliquis for stroke risk reduction. Patient also notably had periodic jerking movements concerning for uncontrolled simple partial
seizures. Neurology evaluated and patient's Keppra was increased to 750 mg BID. Patient also developed acute urinary retention requiring Barney placement. 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 Pulmonology and
Oncology evaluation noted that, given poor functional status, patient would be a poor candidate for chemo and treatment if any would be palliative. No significant growth noted in cultures, pleural effusion was determined to be malignant, with
pneumonia less likely/ruled out, antibiotics were subsequently discontinued as per ID recommendations. Following Hospice evaluation, with extensive goals of care discussion with patient/family, patient/family ultimately requested hospice/comfort
care. GIP Hospice appropriate for mgmt of pain/sob. Patient was subsequently signed on to in hospice.
Medical History
Past Medical History
Past Medical History: Reports Other (as above)
Past Surgical History: Reports Other (as above)
Social History
Tobacco: Former Smoker
Alcohol: None
Drug: None
Personal:
Living: With Family
Employment: Retired
Family History
Family History: Not pertinent (reviewed)
Allergies / Home Medications
Allergies reflects when Allergies were last updated in [facility].
Home Medications with original date entered in [facility]
Allergy/Medication List:
Allergies
Allergy/AdvReac Type Severity Reaction Status Date / Time
oxycodone (From Percocet) AdvReac Nausea / Verified 11/02/25 12:14
Vomiting
propoxyphene (From AdvReac Nausea / Verified 11/02/25 12:14
Darvocet-N) Vomiting
Home Medications
Patient Own Morphine Pump 1 dose SC DIRECTED Pain 11/02/25
amoxicillin 875 mg-potassium clavulanate 125 mg tablet 1 tab PO BID Infection 11/02/25
aspirin 81 mg tablet,delayed release 81 mg PO DAILY Blood Clot Prevention/Tx 11/02/25
azithromycin 250 mg tablet 250 mg PO MOTUWETHFR COPD PPX 11/02/25
benzonatate 200 mg capsule 200 mg PO TIDPRN PRN COUGH 11/02/25
budesonide 0.5 mg/2 mL suspension for nebulization 0.5 mg inhalation R BID Lung/Breathing Issues 11/02/25
calcium 500 mg (carb,gluconate)-magnesium 250 mg (gluc,oxide) tablet 1 tab PO DAILY Supplement 11/02/25
cholecalciferol (vitamin D3) 25 mcg (1,000 unit) tablet (Vitamin D3) 25 mcg PO DAILY Supplement 11/02/25
doxycycline hyclate 100 mg capsule 100 mg PO BID Infection 11/02/25
dupilumab 300 mg/2 mL subcutaneous pen injector (Dupixent) 300 mg SC Q2W Lung/Breathing Issues 11/02/25
escitalopram oxalate 10 mg tablet (Lexapro) 10 mg PO QPM Mental Health/Anxiety 11/02/25
ferrous sulfate 325 mg (65 mg iron) tablet 325 mg PO DAILY Supplement 11/02/25
finasteride 5 mg tablet 5 mg PO QPM Urinary Issue 11/02/25
fluorometholone acetate 0.1 % eye drops,suspension 1 drp LEFT EYE BID Eye Condition 11/02/25
furosemide 20 mg tablet (Lasix) 20 mg PO DAILY Fluid Retention/Swelling 11/02/25
glucosamine 375 ho-ofuohdogm-wwi no1 500 mg-C 15 mg-elisa 0.5 mg tablet (Tfpnoiyjgcv-Zyurhtgswgj-RLN Complex) 1 tab PO DAILY Supplement 11/02/25
ipratropium 0.5 mg-albuterol 3 mg (2.5 mg base)/3 mL nebulization soln 3 ml inhalation R QID Lung/Breathing Issues 11/02/25
ipratropium bromide 0.02 % solution for inhalation 0.5 mg inhalation R BID Lung/Breathing Issues 11/02/25
levetiracetam 500 mg tablet (Keppra) 500 mg PO DAILY Seizures 11/02/25
levetiracetam 750 mg tablet (Keppra) 750 mg PO QPM Seizures 11/02/25
lovastatin 40 mg tablet 40 mg PO QPM High Cholesterol 11/02/25
lysine 1,000 mg tablet 1,000 mg PO DAILY Supplement 11/02/25
metoprolol tartrate 25 mg tablet 25 mg PO BID Heart Disease/Condition 11/02/25
morphine 15 mg immediate release tablet 15 mg PO QID Pain 11/02/25
naloxegol 25 mg tablet (Movantik) 25 mg PO DAILY Gastrointestinal Issue 11/02/25
omeprazole 40 mg capsule,delayed release 40 mg PO DAILY Gastrointestinal Issue 11/02/25
pregabalin 50 mg capsule (Lyrica) 50 mg PO DAILY Pain 11/02/25
pregabalin 50 mg capsule (Lyrica) 100 mg PO HS Pain 11/02/25
tamsulosin 0.4 mg capsule 0.4 mg PO QPM Urinary Issue 11/02/25
therapeutic multivitamin 1 tab PO DAILY Supplement 11/02/25
timolol maleate 0.5 % eye drops 1 drp LEFT EYE BID Eye Condition 11/02/25
Review of Systems
-
A 12 point ROS was completed and negative except as noted: Yes
Constitutional: Reports Other (as below)
Physical Exam
Physical Exam
General: Other (as below)
Impression/Plan
-
Physical Exam
General: no acute distress, appears comfortable
HEENT: NormoCephalic and Anicteric hard of hearing
Respiratory: Decreased Breath Sounds (RLL); No Wheezes, stable respiratory status on BIPAP
Cardiac: S1/S2 and Regular Rhythm
GI: Soft and Non Tender
Musculoskeletal: No Edema
Neuro: AOx3 conversant largely coherent
Psych: Calm
85M sz d/o restrictive lung dz COPD chronic home O2 4L HUGO BIPAP RLS Anxiety/depression chronic pain managed w/ pain pump here for Acute on Chronic Respiratory Failure suspected 2/2 RLL pna with associate large pleural effusion and COPD
exacerbation. Treated with broad spectrum abx vanc zosyn, steroids, and thoracentesis. Respiratory status remain tenuous throughout stay intermittently requiring BIPAP prn for shortness of breath. Hospital course was notable for new onset
aflutter/afib, self limited, spontaneously converted back to NSR. Cardiology evaluated and patient was placed on Eliquis for stroke risk reduction. Patient also notably had periodic jerking movements concerning for uncontrolled simple partial
seizures. Neurology evaluated and patient's Keppra was increased to 750 mg BID. Patient also developed acute urinary retention requiring Barney placement. 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 Pulmonology and
Oncology evaluation noted that, given poor functional status, patient would be a poor candidate for chemo and treatment if any would be palliative. No significant growth noted in cultures, pleural effusion was determined to be malignant, with
pneumonia less likely/ruled out, antibiotics were subsequently discontinued as per ID recommendations. Following Hospice evaluation, with extensive goals of care discussion with patient/family, patient/family ultimately requested hospice/comfort
care. GIP Hospice appropriate for mgmt of pain/sob. Patient was subsequently signed on to inpt hospice.
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
Acute on Chronic Respiratory Failure
Obstructive Sleep Apnea
Sz d/o
Chronic pain, pain pump
paroxysmal aflutter
Restless Leg Syndrome
Acute Urinary Retention
Coronary Artery Disease
Venous Insufficiency
Neuropathy
Inpt Hospice
Comfort Measures
Barney End of Life Care
IV Morphine prn pain/sob w transition to morphine gtt as necessary
cont home Pregabalin Lexapro for now, as long as pt able to tolerate PO
Regular diet comfort feed
IV Keppra 750 mg BID
ativan prn anxiety/seizure
DNR
Discussed with patient, patient's Larisa, daughter Ailyn, son-in-law Tl, RN, and chain builder loom control
I spent a total of 75 minutes with the patient or on the floor. More than 50% of this time involved counseling and coordination of care.
[2025-11-08] MEDS: MORPHINE SULFATE 2 MG IV ×3 (14:49→21:37)
--- NOTE | 2025-11-08 16:05 | PTCARENOTE ---
report called pt transferred to 2N family at bedside
[2025-11-08 16:25] VITALS: BP 150/74
[2025-11-08] MEDS: NSS (PRESERVATIVE FREE) 0.25 ML IV ×2 (17:06→23:46)
[2025-11-08] MEDS: ATIVAN 0.5 MG IV ×2 (17:07→23:45)
[2025-11-08 19:34] VITALS: BP 138/70
[2025-11-08] MEDS: KEPPRA 750 MG IV (20:05)
[2025-11-08] MEDS: FLUSH (NSS) 2 FLUSH IV ×3 (20:06→23:46)
[2025-11-08] MEDS: FML 0.1% OPHTHALMIC SUSPENSION LEFT EYE (21:15)
[2025-11-08] MEDS: TIMOPTIC 0.5% OPHTHALMIC SOLUTION LEFT EYE (21:15)
--- NOTE | 2025-11-08 23:05 | HOSPNOTE ---
Patient admitted onto inpatient hospice. Hospice will visit daily.
[2025-11-09] MEDS: MORPHINE SULFATE 2 MG IV ×6 (04:09→21:16)
[2025-11-09] MEDS: ROBINUL 0.2 MG IV ×2 (04:09→21:13)
[2025-11-09] MEDS: FLUSH (NSS) 2 FLUSH IV ×2 (04:10→07:18)
[2025-11-09 07:14] VITALS: BP 126/60
--- NOTE | 2025-11-09 07:18 | W.PN.HOSP.TC ---
Today's Communication/Plan
-
comfort measures
Assessment / Plan
Assessment / Plan
Limited Physical Exam Comfort Measures
General: Appears comfortable nonverbal
Pulm: stable respiratory status on NC, breathing at times seems apneic
Neuro: sleeping/nonverbal
85M sz d/o restrictive lung dz COPD chronic home O2 4L HUGO BIPAP RLS Anxiety/depression chronic pain managed w/ pain pump here for Acute on Chronic Respiratory Failure suspected 2/2 RLL pna with associate large pleural effusion and COPD
exacerbation. Treated with broad spectrum abx vanc zosyn, steroids, and thoracentesis. Respiratory status remain tenuous throughout stay intermittently requiring BIPAP prn for shortness of breath. Hospital course was notable for new onset
aflutter/afib, self limited, spontaneously converted back to NSR. Cardiology evaluated and patient was placed on Eliquis for stroke risk reduction. Patient also notably had periodic jerking movements concerning for uncontrolled simple partial
seizures. Neurology evaluated and patient's Keppra was increased to 750 mg BID. Patient also developed acute urinary retention requiring Barney placement. 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 Pulmonology and
Oncology evaluation noted that, given poor functional status, patient would be a poor candidate for chemo and treatment if any would be palliative. No significant growth noted in cultures, pleural effusion was determined to be malignant, with
pneumonia less likely/ruled out, antibiotics were subsequently discontinued as per ID recommendations. Following Hospice evaluation, with extensive goals of care discussion with patient/family, patient/family ultimately requested hospice/comfort
care. GIP Hospice appropriate for mgmt of pain/sob. Patient was subsequently signed on to inpt hospice.
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
Acute on Chronic Respiratory Failure
Obstructive Sleep Apnea
Sz d/o
Chronic pain, pain pump
paroxysmal aflutter
Restless Leg Syndrome
Acute Urinary Retention
Coronary Artery Disease
Venous Insufficiency
Neuropathy
Inpt Hospice
Comfort Measures
Barney End of Life Care
IV Morphine prn pain/sob w transition to morphine gtt as necessary
home Pregabalin Lexapro discontinued, patient has not required
Regular diet comfort feed
IV Keppra 750 mg BID
ativan prn anxiety/seizure
DNR
Discussed with patient's Larisa, passing likely to be any day now
I spent a total of 38 minutes with the patient or on the floor. More than 50% of this time involved counseling and coordination of care
Anticipated Discharge: Within 24 hours
Subjective/Interval History
-
Date of Service: November 09, 2025
no acute distress, appears comfortable, sleeping. Larisa present at bedside.
Objective Data
-
Vital Signs:
Vital Signs
Temp Pulse Resp BP Pulse Ox
97.6 F 90 16 126/60 99
11/09/25 07:14 11/09/25 07:14 11/09/25 07:14 11/09/25 07:14 11/09/25 07:14
I&O
11/08/25 11/09/25 11/10/25
06:59 06:59 06:59
Output Total 1350 / 1350
Balance -1350 / -1350
[2025-11-09] MEDS: NSS (PRESERVATIVE FREE) 0.25 ML IV ×2 (08:35→13:17)
[2025-11-09] MEDS: ATIVAN 0.5 MG IV ×2 (08:35→13:16)
[2025-11-09] MEDS: KEPPRA 750 MG IV ×2 (08:36→19:46)
[2025-11-09] MEDS: TIMOPTIC 0.5% OPHTHALMIC SOLUTION 1 DROP LEFT EYE ×2 (08:38→19:46)
[2025-11-09] MEDS: FML 0.1% OPHTHALMIC SUSPENSION 1 DROP LEFT EYE ×2 (08:39→19:39)
[2025-11-09 19:41] VITALS: BP 133/60
[2025-11-10] MEDS: MORPHINE SULFATE 2 MG IV ×4 (00:38→07:36)
[2025-11-10] MEDS: ROBINUL 0.2 MG IV (02:22)
[2025-11-10] MEDS: ATIVAN 0.5 MG IV (06:26)
[2025-11-10] MEDS: NSS (PRESERVATIVE FREE) 0.25 ML IV (06:26)
[2025-11-10 07:03] VITALS: BP 108/54
[2025-11-10] MEDS: FML 0.1% OPHTHALMIC SUSPENSION LEFT EYE (07:37)
[2025-11-10] MEDS: TIMOPTIC 0.5% OPHTHALMIC SOLUTION LEFT EYE (07:37)
[2025-11-10] MEDS: KEPPRA 750 MG IV (07:37)
--- NOTE | 2025-11-10 09:32 | CHAP ---
Note: Mr. Evans received Sacrament of the Sick/Last Rites earlier in his hospital stay (before his chart was flipped to hospice). He would like to speak to a mri assistant if possible so we have him on the list for the next mri assistant who visits.
--- NOTE | 2025-11-10 09:39 | W.PN.DEATH ---
Pronouncement of
-
Called to see patient to pronounce.
No spontaneous heart tones or respirations noted.
Patient not responsive to verbal stimuli.
Patient is pronounced .
Time of : 08:58
Date of : 11/10/25
Cause of : acute on chronic respiratory failure, small cell lung cancer
Family Notified: Yes
--- NOTE | 2025-11-10 09:45 | W.DCSUMMARY ---
Discharge Summary
Discharge Data
Date of Admission: 11/08/25
Date of Discharge: 11/10/25
-
Pending Results: No
Hospital Course
85M sz d/o restrictive lung dz COPD chronic home O2 4L HUGO BIPAP RLS Anxiety/depression chronic pain managed w/ pain pump admitted 11/02 to 11/08 for Acute on chronic respiratory failure related to small cell lung cancer, concern for pneumonia,
malignant pleural effusion, COPD. Course was complicated by new onset A. Flutter and simple partial seizures. Patient had thoracentesis which revealed small cell lung cancer. Patient was felt not to be good candidate for chemo or cancer treatment
due to poor functional status. Patient was transitioned to inpatient hospice on 11/08. Patient passed peacefully at 858 AM on 11/10. Family was notified at time of passing.
Discharge Plan
-
Patient Disposition:
Referrals:
Cain Justin DO [Family Provider, [facility]]
Prescriptions:
No Action
furosemide [Lasix] 20 mg Tablet
20 mg PO DAILY
doxycycline hyclate 100 mg Capsule
100 mg PO BID
ipratropium-albuterol [DuoNeb] 0.5 mg-3 mg(2.5 mg base)/3 mL Solution For Nebulization
3 ml INHALATION R QID
azithromycin 250 mg Tablet
250 mg PO MOTUWETHFR
benzonatate 200 mg Capsule
200 mg PO TIDPRN PRN (Reason: COUGH)
levetiracetam [Keppra] 500 mg Tablet
500 mg PO DAILY
lovastatin 40 mg Tablet
40 mg PO QPM
lysine [L-Lysine] 1,000 mg Tablet
1,000 mg PO DAILY
Theragen Tablet
1 tab PO DAILY
omeprazole 40 mg Capsule,Delayed Release(Dr/Ec)
40 mg PO DAILY
aspirin 81 mg Tablet,Delayed Release (Dr/Ec)
81 mg PO DAILY
tamsulosin [Flomax] 0.4 mg Capsule
0.4 mg PO QPM
fluorometholone acetate 0.1 % Drops,Suspension
1 drp LEFT EYE BID
ferrous sulfate 325 mg (65 mg iron) Tablet
325 mg PO DAILY
budesonide 0.5 mg/2 mL Suspension For Nebulization
0.5 mg INHALATION R BID
levetiracetam [Keppra] 750 mg Tablet
750 mg PO QPM
timolol maleate 0.5 % Drops
1 drp LEFT EYE BID
morphine 15 mg Tablet
15 mg PO QID
finasteride 5 mg Tablet
5 mg PO QPM
ipratropium bromide 0.02 % Solution
0.5 mg INHALATION R BID
amoxicillin-pot clavulanate [Augmentin] 875-125 mg Tablet
1 tab PO BID
escitalopram oxalate [Lexapro] 10 mg Tablet
10 mg PO QPM
metoprolol tartrate 25 mg Tablet
25 mg PO BID
pregabalin [Lyrica] 50 mg Capsule
50 mg PO DAILY
pregabalin [Lyrica] 50 mg Capsule
100 mg PO HS
cholecalciferol (vitamin D3) [Vitamin D3] 25 mcg (1,000 unit) Tablet
25 mcg PO DAILY
Ghbiwfgpysn-Fgneg-LIF Complex 033-227-74-0.5 mg Tablet
1 tab PO DAILY
Calcium Magnesium 500 mg calcium- 250 mg Tablet
1 tab PO DAILY
Movantik 25 mg Tablet
25 mg PO DAILY
Dupixent Pen 300 mg/2 mL Pen Injector
300 mg SC Q2W
Patient Own Morphine Pump
1 dose SC DIRECTED
Patient Comments:
11/02/25-PATIENT, SPOUSE AND FAMILY IN ROOM DO NOT KNOW INFORMATION ABOUT THE PUMP
Discharge Date and Time
Print Language: ARMENIAN
== END 2025-11-10 08:58 | disposition expired | DRG 951 ==
LOC: 2 NORTH 13:20
PROVIDERS: ADMITTING PHYSICIAN Internal Medicine; FAMILY PHYSICIAN Family Medicine
DX: Z51.5 Encounter for palliative care (principal); J96.20 Acute and chronic respiratory failure, unspecified whether with hypoxia or hypercapnia; C34.90 Malignant neoplasm of unspecified part of unspecified bronchus or lung; I48.92 Unspecified atrial flutter; F32.A Depression, unspecified; F41.9 Anxiety disorder, unspecified; G25.81 Restless legs syndrome; G47.33 Obstructive sleep apnea (adult) (pediatric); I48.91 Unspecified atrial fibrillation; J44.9 Chronic obstructive pulmonary disease, unspecified; Z87.891 Personal history of nicotine dependence; Z99.81 Dependence on supplemental oxygen